=== PATIENT | male | born 1960 | race Asian ===

== ENCOUNTER 2019-01-28 00:28 | Outpatient (CLI) | payer BC, SELFPAY ==
--- NOTE | 2019-01-28 07:33 | MERGE_ITS ---
*[facility]* *[facility]* [address] [place] [address] Date of study: 01/28/2019 Transthoracic Echocardiography M-mode, complete 2D, complete spectral Doppler, and color Doppler *STUDY CONCLUSIONS* Summary: 1. Left ventricle: The cavity size was normal. Wall thickness was normal. Systolic function was normal. The estimated ejection fraction was 60-65%. Wall motion was normal; there were no regional wall motion abnormalities. 2. Right ventricle: The cavity size was normal. Wall thickness was normal. Systolic function was normal. 3. Pulmonary arteries: Pulmonary systolic pressure was within the normal range, in the range of 20mm Hg to 25mm Hg. *PATIENT PRESENTATION* Height: 172.7cm ((68in) ) S/D Pressure: 112 / 69 Weight: 65.8kg ((144.7lb) ) BSA: 1.78m^2 Test start time: 07:40 AM. Test stop time: 08:30 AM. CONSULTING Shirin Beltrán PERFORMING Unknown ORDERING Flip Garcia REFERRING Flip Garcia PERFORMING [facility] [employer]ITY ARCHITECT RT Harry (R)(MIGUELANGEL), MICHELE *PROCEDURE DATA* Procedure information: The patient was identified by two identifiers. This study was interpreted by [facility]. Pertinent images and digital data are archived for permanent storage and are available for subsequent review. Comparison was made to the study of 06/09/2009. Study status: Routine. Transthoracic echocardiography. M-mode, complete 2D, complete spectral Doppler, and color Doppler. A Transthoracic Echocardiogram was performed. Scanning was performed from the parasternal, apical, subcostal, and suprasternal notch acoustic windows. Images were obtained using an [id number] cardiac ultrasound machine. Image quality was adequate. Study completion: The patient tolerated the procedure well. There were no complications. History: PMH: Systemic sclerosis. M34.9 *CARDIAC ANATOMY* Left ventricle: The cavity size was normal. Wall thickness was normal. Systolic function was normal. The estimated ejection fraction was 60-65%. Wall motion was normal; there were no regional wall motion abnormalities. Diastolic parameters were normal. Aortic valve: Trileaflet; normal thickness leaflets. Mobility was not restricted. Doppler: Transvalvular velocity was within the normal range. There was no stenosis. There was no significant regurgitation. VTI ratio of LVOT to aortic valve: 0.78. Valve area (VTI): 2.5cm^2. Indexed valve area (VTI): 1.4cm^2/m^2. Peak velocity ratio of LVOT to aortic valve: 0.71. Valve area (Vmax): 2.3cm^2. Indexed valve area (Vmax): 1.3cm^2/m^2. Mean velocity ratio of LVOT to aortic valve: 0.8. Valve area (Vmean): 2.6cm^2. Indexed valve area (Vmean): 1.5cm^2/m^2. Mean gradient (S): 2.1mm Hg. Peak gradient (S): 3.9mm Hg. Aorta: Aortic root: The aortic root was normal in size. Ascending aorta: The ascending aorta was normal in size. Mitral valve: Structurally normal valve. Mobility was not restricted. Doppler: Transvalvular velocity was within the normal range. There was no evidence for stenosis. There was trivial regurgitation. Valve area by pressure half-time: 3.6cm^2. Indexed valve area by pressure half-time: 2cm^2/m^2. Left atrium: The atrium was normal in size. Right ventricle: The cavity size was normal. Wall thickness was normal. Systolic function was normal. Pulmonic valve: The pulmonary valve appears to be grossly normal. Doppler: Transvalvular velocity was within the normal range. There was no evidence for stenosis. There was mild regurgitation. Peak gradient (S): 4.7mm Hg. Tricuspid valve: Structurally normal valve. Doppler: Transvalvular velocity was within the normal range. There was no evidence for stenosis. There was trivial regurgitation. Pulmonary artery: Pulmonary systolic pressure was within the normal range, in the range of 20mm Hg to 25mm Hg. Right atrium: The atrium was normal in size. Pericardium: There was no pericardial effusion. Systemic veins: Inferior vena cava: Well visualized. The vessel was patent and normal in size. The respirophasic diameter changes were in the normal range (greater than or equal to 50%). Baseline ECG: Normal sinus rhythm. Measurements Left ventricle Value Reference LV ID, ED, PLAX 4.1 cm 3.5 - 6.0 LV ID, ES, PLAX 2.8 cm 2.1 - 4.0 LV PW thickness, ED, PLAX 1.0 cm LV end-diastolic volume, 1-p A2C 88 ml LV ejection fraction, 1-p A2C 64 % LV end-diastolic volume, 1-p A4C 64 ml LV ejection fraction, 1-p A4C 56 % LV e', lateral 0.109 m/sec LV E/e', lateral 6 LV e', medial 0.089 m/sec LV E/e', medial 8 LV e', average 0.099 m/sec LV E/e', average 7 Ventricular septum Value Reference IVS thickness, ED, PLAX 1.0 cm LVOT Value Reference LVOT ID, A-P 2.0 cm LVOT area 3.2 cm^2 LVOT peak velocity, S 0.7 m/sec LVOT mean velocity, S 0.53 m/sec LVOT VTI, S 16.4 cm LVOT peak gradient, S 2 mm Hg LVOT mean gradient, S 1.2 mm Hg Stroke volume (SV), LVOT DP 53 ml Stroke index (SV/bsa), LVOT DP 30 ml/m^2 Aortic valve Value Reference Aortic valve peak velocity, S 1 m/sec Aortic valve mean velocity, S 0.67 m/sec Aortic valve VTI, S 21.0 cm Aortic mean gradient, S 2.1 mm Hg Aortic peak gradient, S 3.9 mm Hg VTI ratio, LVOT/AV 0.78 Aortic valve area, VTI 2.5 cm^2 Velocity ratio, peak, LVOT/AV 0.71 Aortic valve area, peak velocity 2.3 cm^2 Velocity ratio, mean, LVOT/AV 0.8 Aortic valve area, mean velocity 2.6 cm^2 Aortic valve area/bsa, mean velocity 1.5 cm^2/m^2 Aorta Value Reference Aortic root ID, ED 3.2 cm Ascending aorta ID, A-P, S 3.2 cm RVOT Value Reference RVOT VTI, S 15.3 cm Left atrium Value Reference LA ID, A-P, ES 4.0 cm LA ID/bsa, A-P 2.2 cm/m^2 <=2.2 LA area, ES, A4C 19.6 cm^2 8.8 - 23.4 LA area, ES, A2C 16 cm^2 LA volume/bsa, ES, 1-p A4C 32 ml/m^2 LA volume, ES, 2-p 48 ml LA volume/bsa, ES, 2-p 27 ml/m^2 LA/aortic root ratio 1.24 Mitral valve Value Reference Mitral E-wave peak velocity 0.68 m/sec Mitral A-wave peak velocity 0.7 m/sec Mitral deceleration time 211 ms 150 - 230 Mitral pressure half-time 61 ms Mitral E/A ratio, peak 0.97 Mitral valve area, PHT, DP 3.6 cm^2 Tricuspid valve Value Reference Tricuspid regurg peak velocity 2.1 m/sec Tricuspid peak RV-RA gradient 17.3 mm Hg Right atrium Value Reference RA area, ES, A4C 15.5 cm^2 8.3 - 19.5 Pulmonic valve Value Reference Pulmonic peak gradient, S 4.7 mm Hg Pulmonic regurg velocity, ED 1.08 m/sec Legend: (L) and (H) danny values outside specified reference range. I have personally reviewed the images and have reviewed and edited the reported findings. Electronically signed by Castro Jones 01/28/2019 09:11
--- NOTE | 2019-01-28 08:45 | DI.CT_ITS ---
SYMPTOMS/DIAGNOSIS: ? INTERSTITIAL LUNG DISEASE, SYSTEM SCLEROSIS, M34.[address] SCAN OF THE CHEST: Routine noncontrast examination was performed. There is atherosclerosis of the thoracic aorta. No aneurysmal dilatation is seen. The heart size is within normal limits. No significant pericardial effusion is seen. Coronary artery calcifications are present. No significant thoracic adenopathy is present. No pleural effusion or pneumothorax is identified. Ground-glass opacities are seen in the dependent portion of the lung bases. The tracheobronchial tree is unremarkable. No significant interstitial disease is present. The bones are intact. IMPRESSION: 1. No significant interstitial disease. 2. Minimal ground-glass opacities seen in the dependent portion of the lung bases suspicious for atelectasis. Mild pneumonitis cannot be excluded.
--- NOTE | 2019-01-28 15:11 | DI.VRAD_ITS ---
EXAM: CT Chest Without Contrast EXAM DATE/TIME: 01/28/2019 9:03 AM CLINICAL HISTORY: 59 years old, male; Signs and symptoms; Other: ? Interstitial lung disease, systemic sclerosis TECHNIQUE: Imaging protocol: Axial computed tomography images of the chest without intravenous contrast. Coronal and sagittal reformatted images were created and reviewed. Radiation optimization: All CT scans at this facility use at least one of these dose optimization techniques: automated exposure control; mA and/or kV adjustment per patient size (includes targeted exams where dose is matched to clinical indication); or iterative reconstruction. COMPARISON: No relevant prior studies available. FINDINGS: Lungs: Minimal atelectasis/scarring of the lungs. No significant consolidation. Minimal ground glass attenuation in the lung bases. Pleural space: No pneumothorax. No pleural effusion. Heart: Unremarkable. No cardiomegaly. No pericardial effusion. Aorta: Unremarkable. No aortic aneurysm. Great vessels off aortic arch: Atherosclerosis of the aorta and major branch vessels is present, but mild. No visualized aneurysms. Lymph nodes: Unremarkable. No enlarged lymph nodes. Bones/joints: Unremarkable. No acute fracture. Soft tissues: Unremarkable. IMPRESSION: Minimal ground glass attenuation in the lung bases probably from a mild pneumonitis. No significant interstitial lung disease. Dictated and Authenticated by: Barber Pizarro MD. Ordering:JAMISON Castelan MD
== END 2019-01-28 00:48 ==
PROVIDERS: PCP Family Medicine; Visit Provider Internal Medicine
DX: M34.9 Systemic sclerosis, unspecified (principal); R91.8 Other nonspecific abnormal finding of lung field
CPT/HCPCS: 71250; 93306

== ENCOUNTER 2019-02-28 09:03 | Day surgery (SDC) | payer BC, SELFPAY ==
[2019-02-28 09:16] VITALS: BP 129/73; PULSE 67; RESP 16; TEMP 36.5; O2SAT 99
--- NOTE | 2019-02-28 09:46 | W.PM.DSUDISC ---
Discharge Plan Disposition Patient Disposition: HOME Condition: Good Discharge Details Attending Provider: Anastasiia Harris Primary Care Provider: Shirin Beltrán Home Meds and New Rx's Prescriptions: No Action diltiazem HCl 120 mg capsule,extended release 12 hr 120 mg PO DAILY RF: 0 ibuprofen 800 mg tablet 800 mg PO DAILY PRNRF: 0 naproxen [Naprosyn] 500 mg tablet 500 mg PO BID PRNRF: 0 diphenhydramine-acetaminophen [Tylenol PM Extra Strength] 25-500 mg tablet 1 tab PO QHS PRNRF: 0 bisacodyl [Dulcolax (bisacodyl)] 5 mg tablet,delayed release (DR/EC) 5 mg PO ONCE Qty: 4 RF: 0 polyethylene glycol 3350 17 gram/dose powder 238 g PO ONCE Qty: 238 RF: 0 epinephrine 0.3 MG/SYR auto-injector 0.3 mg IJ PRN RF: 0 zolpidem 5 MG tablet 5 mg PO .HS PRN RF: 0 multivitamin [Multiple Vitamins] 1 TAB tablet 1 tab PO DAILY Qty: 7 RF: 0 folic acid 1 MG tablet 1 mg PO QAM Qty: 7 RF: 0 B-complex with vitamin C 1 EACH tablet 1 tab PO DAILY Qty: 7 RF: 0 thiamine mononitrate (vit B1) [Vitamin B-1 (mononitrate)] 100 MG tablet 100 mg PO QAM Qty: 7 RF: 0 prednisone 10 mg Tablet 10 mg PO DAILY RF: 0 cyanocobalamin (vitamin B-12) 250 mcg Tablet 250 mcg PO DAILY RF: 0 amlodipine [Norvasc] 5 mg Tablet 7.5 mg PO DAILY RF: 0 magnesium citrate 125 mg Capsule 250 mg PO RF: 0 Discharge Orders Discharge Orders: Discharge Order (Routine); Ordered 02/28/19 Ordered By: Anastasiia Harris
[2019-02-28] MEDS: Lactated Ringers 1,000 ML 80 ML IV (09:51)
--- NOTE | 2019-02-28 10:22 | BOWEL_PTH ---
PATIENT: Abida Das LOC: [facility] U#:[id number] AGE/SX: 59/M ROOM: RE02/28/[address]: Anastasiia Harris MD : 1960 BED: DIS: 02/28/2019 SPEC #: [id number] RECD: 02/28/19 12:38 STATUS: NELSY REQ #: [id number] KEYUR: 02/28/19 10:[address]: Anastasiia Harris DEPT: Surgical Specimen RECD BY: Bernice Stearns ENTERED: 02/28/19 12:39 SP TYPE: Bowel OTHR DR: Shirin Beltrán Tissues: 1 - BIOPSY BOWEL 2 - BIOPSY BOWEL Procedures: GROSS AND MICRO LEVEL 4 Comments: [id number]
--- NOTE | 2019-02-28 10:42 | W.PM.DSUDISC ---
Discharge Plan Disposition Patient Disposition: HOME Condition: Good Discharge Details Attending Provider: Anastasiia Harris Primary Care Provider: Shirin Beltrán Home Meds and New Rx's Prescriptions: Continued diltiazem HCl 120 mg capsule,extended release 12 hr 120 mg PO DAILY RF: 0 ibuprofen 800 mg tablet 800 mg PO DAILY PRNRF: 0 naproxen [Naprosyn] 500 mg tablet 500 mg PO BID PRNRF: 0 diphenhydramine-acetaminophen [Tylenol PM Extra Strength] 25-500 mg tablet 1 tab PO QHS PRNRF: 0 epinephrine 0.3 MG/SYR auto-injector 0.3 mg IJ PRN RF: 0 zolpidem 5 MG tablet 5 mg PO .HS PRN RF: 0 multivitamin [Multiple Vitamins] 1 TAB tablet 1 tab PO DAILY Qty: 7 RF: 0 folic acid 1 MG tablet 1 mg PO QAM Qty: 7 RF: 0 B-complex with vitamin C 1 EACH tablet 1 tab PO DAILY Qty: 7 RF: 0 thiamine mononitrate (vit B1) [Vitamin B-1 (mononitrate)] 100 MG tablet 100 mg PO QAM Qty: 7 RF: 0 prednisone 10 mg Tablet 10 mg PO DAILY RF: 0 cyanocobalamin (vitamin B-12) 250 mcg Tablet 250 mcg PO DAILY RF: 0 amlodipine [Norvasc] 5 mg Tablet 7.5 mg PO DAILY RF: 0 magnesium citrate 125 mg Capsule 250 mg PO RF: 0 Discontinued bisacodyl [Dulcolax (bisacodyl)] 5 mg tablet,delayed release (DR/EC) 5 mg PO ONCE Qty: 4 RF: 0 polyethylene glycol 3350 17 gram/dose powder 238 g PO ONCE Qty: 238 RF: 0 Discharge Instructions Additional Instructions: Three small polyps were removed and appear benign. My office will send a letter with pathology results. It is anticipated you will need a follow up colonoscopy in 5 years. Stand Alone Forms: Colonoscopy Post Instructions, Christina Lin (DSMolly) Activity:: Activity as Tolerated Diet:: As Tolerated Discharge Orders Discharge Orders: Discharge Order (Routine); Ordered 02/28/19 Ordered By: Anastasiia Harris DS: Diagnosis Discharge Diagnosis (1) Colon polyps: Start date: 02/28/19 Start time: 10:43 Status: Acute
[2019-02-28 11:10] VITALS: BP 126/65; PULSE 57; RESP 16; TEMP 36.5; O2SAT 98
--- NOTE | 2019-02-28 11:22 | COLE_ITS ---
DATE OF PROCEDURE: February 28, 2019 PREOPERATIVE DIAGNOSIS: History of colon polyps. POSTOPERATIVE DIAGNOSIS: Colon polyps. PROCEDURE: Colonoscopy with cold forceps polypectomy. SURGEON: Anastasiia Harris M.D. ANESTHESIA: General. INDICATIONS: This is a 59-year-old man whose last colonoscopy in 2011 showed four small polyps, one of which was a tubular adenoma. He presents for routine follow-up. He has no family history of colo n cancer. PROCEDURE: He was placed in the left Mirza' position. Propofol was titrated to sedation. Digital re ctal examination revealed no abnormalities. The scope was advanced to the cecum without difficulty. His prep was excellent. The ileocecal valve and appendiceal orifice were clearly identified. The s cope was slowly withdrawn with no abnormalities seen within the ascending colon. In the distal trans verse colon there were two diminutive polyps that were removed and sent in the same specimen containe r. The descending and sigmoid colon were normal. In the rectum at about 20 cm there was a hyperplas tic-appearing polyp that was removed with the cold forceps. Retroflex view showed no other abnormali ties. He tolerated the procedure well and was stable to recovery. It is anticipated he will need a follow-up colonoscopy again in five years depending on the polyp pathology. cc: Shirin Beltrán M.D.
== END 2019-02-28 11:30 | disposition home or self-care (01) ==
PROVIDERS: PCP Family Medicine; Visit Provider Surgery
PROC: 0DJD8ZZ Inspection of Lower Intestinal Tract, Via Natural or Artificial Opening Endoscopic (ICD-10-PCS; CPT 45378; principal; 2019-02-28 10:30)
DX: Z12.11 Encounter for screening for malignant neoplasm of colon (principal); D12.3 Benign neoplasm of transverse colon; K62.1 Rectal polyp; I10 Essential (primary) hypertension
CPT/HCPCS: 45380; 88305

== ENCOUNTER 2019-06-19 01:40 | Outpatient (CLI) | payer BC, SELFPAY ==
--- NOTE | 2019-06-19 09:14 | DI.MRI_ITS ---
EXAM: MR UPPER JOINT RT WO CLINICAL HISTORY: DEGENERATIVE JOINT CHANGE IN AC JOINT AND GLENOHUMERAL JOINT, ? ROTATOR,DECREASED RANGE OF MOTION TECHNIQUE: Multiplanar multisequence MRI was performed. COMPARISON: RIGHT SHOULDER COMPLETE from 09/21/2016 FINDINGS: There is spurring at the AC joint. The acromion is laterally downsloping and shows a spur at the ti p. There is a full-thickness tear of the supraspinatus tendon with retraction to the level of the ti p of the acromion. There is no muscle atrophy. There is minimal thickening in the infraspinatus ten don but no evidence of a focal tear. The subscapularis and teres minor tendons appear intact. The l josephine head of the biceps tendon is not seen in the bicipital groove. There is fluid in the subacromial subdeltoid bursa and a small amount of joint fluid and a small amount of fluid in the subcoracoid bu rsa. The marrow signal appears normal. IMPRESSION: Full-thickness tear with retraction of the supraspinatus tendon. The long head of the biceps tendon is not seen and is presumed torn as well.
== END 2019-06-19 02:00 ==
PROVIDERS: PCP Family Medicine; Visit Provider Internal Medicine
DX: M75.101 Unspecified rotator cuff tear or rupture of right shoulder, not specified as traumatic (principal); M25.511 Pain in right shoulder; S46.291A Other injury of muscle, fascia and tendon of other parts of biceps, right arm, initial encounter
CPT/HCPCS: 73221

== ENCOUNTER 2019-06-20 00:54 | Outpatient (CLI) | payer BC, SELFPAY ==
[2019-06-20 11:01] LABS: HCT 45.9 % (40.0-50.0); Mean Corp. HGB Concentration 32.7 g/dL (32.0-36.0); Mean Corpuscular Volume 88.6 fL (80-95); Mean Platelet Volume 10.2 fL (8.0-11.0); Platelet Count 281 x1000/uL (130-400); RBC 5.18 m/cumm (4.50-6.00); RBC Distribution Width 13.4 % (11.8-14.1); White Blood Cell Count 7.26 k/cumm (4.4-10.8)
[2019-06-20 11:02] LABS: Anion Gap 5.3 mmol/L (3-11); BUN 26 mg/dL (7-18); CO2 32.7 mmol/L (21.0-32.0); CREATININE 1.16 mg/dL (0.70-1.30); Calculated LDL 180 mg/dL; Chloride 102 mmol/L (98-107); Cholesterol 263 mg/dL (50-200); Glucose 96 mg/dL (70-100); HDL Cholesterol 69 mg/dL (40-60); Potassium 4.8 mmol/L (3.5-5.1); Sodium 140 mmol/L (136-145); Triglyceride 74 mg/dL (30-150)
[2019-06-20 11:19] LABS: Hemoglobin A1C 5.9 % (4.5-6.2)
== END 2019-06-20 01:14 ==
PROVIDERS: PCP Family Medicine; Visit Provider Family Medicine
DX: Z00.00 Encounter for general adult medical examination without abnormal findings (principal); Z13.1 Encounter for screening for diabetes mellitus; Z13.228 Encounter for screening for other metabolic disorders; Z13.0 Encounter for screening for diseases of the blood and blood-forming organs and certain disorders involving the immune mechanism; Z13.220 Encounter for screening for lipoid disorders
CPT/HCPCS: 36415; 80048; 80061; 85027; 83036

== ENCOUNTER 2020-06-30 14:21 | Outpatient (REF) | payer BC, SELFPAY ==
[2020-07-04 15:09] LABS: SARS-CoV-2 RNA Undetected (Undetected); SARS-CoV-2 Specimen Source Nasal
== END 2020-06-30 14:41 ==
LOC: NCHCN 14:21
PROVIDERS: PCP Family Medicine; Visit Provider Physician Assistant Medical
DX: R05 Cough (principal)
CPT/HCPCS: U0003

== ENCOUNTER 2020-10-14 03:29 | Outpatient (CLI) | payer BC, SELFPAY ==
[2020-10-14 08:39] LABS: Abs Immature Grans 0.01 10^3/uL (0.0-0.06); Absolute Basophil Count 0.03 10^3/uL (0.0-0.2); Absolute Lymphocyte Count 1.71 10^3/uL (1.2-3.4); Absolute Monocyte Count 0.42 10^3/uL (0.1-0.8); Absolute Neutrophil Count 2.96 10^3/uL (1.2-6.7); Basophils % 0.6; Eosinophils % 1.9; HCT 43.8 % (40.0-50.0); HGB 14.3 g/dL (13.5-17.5); Immature Grans % 0.2; Lymphocytes % 32.7; MCH 29.2 pg (27.0-33.0); MCHC 32.6 % (32.0-36.0); MCV 89.4 fL (80-95); MPV 9.9 fL (8.0-11.0); Neutrophils % 56.6; Nucleated RBC 0 %; Platelet Count 255 10^3/uL (130-400); RDW 14.1 % (11.8-14.1); RDW-SD 45.6 fL; WBC 5.23 10^3/uL (4.4-10.8)
[2020-10-14 09:15] LABS: ALT 74 U/L (16-63); AST 36 U/L (15-37); Albumin 4.4 g/dL (3.4-5.0); Alkaline Phosphatase 66 U/L (46-116); Anion Gap 4.7 mmol/L (3-11); BUN 24 mg/dL (7-18); Bilirubin, Total 0.6 mg/dL (0.2-1.0); CO2 30.3 mmol/L (21.0-32.0); Calcium 9.5 mg/dL (8.5-10.1); Chloride 104 mmol/L (98-107); Glucose 87 mg/dL (74-106); Potassium 4.5 mmol/L (3.5-5.1); Sodium 139 mmol/L (136-145); Total Protein 7.7 g/dL (6.4-8.2)
== END 2020-10-14 03:30 | disposition home or self-care (01) ==
LOC: LBO 03:29
PROVIDERS: PCP Family Medicine; Visit Provider Internal Medicine
DX: M34.9 Systemic sclerosis, unspecified (principal)
CPT/HCPCS: 36415; 80053; 85025

== ENCOUNTER 2021-01-05 17:05 | Outpatient (REF) | payer BC, SELFPAY ==
[2021-01-05 18:53] LABS: Hemoglobin A1C 5.5 % (<5.7)
[2021-01-05 19:06] LABS: ALT 38 U/L (16-63); AST 30 U/L (15-37); Albumin 4.2 g/dL (3.4-5.0); Alkaline Phosphatase 72 U/L (46-116); Bilirubin, Direct 0.1 mg/dL (0.0-0.2); Bilirubin, Total 0.4 mg/dL (0.2-1.0); Total Protein 7.8 g/dL (6.4-8.2)
== END 2021-01-05 17:06 | disposition home or self-care (01) ==
LOC: NCHCN 17:05
PROVIDERS: PCP Family Medicine; Visit Provider Family Medicine
DX: I73.00 Raynaud's syndrome without gangrene (principal); M34.89 Other systemic sclerosis; Z13.1 Encounter for screening for diabetes mellitus
CPT/HCPCS: 80076; 83036

== ENCOUNTER 2021-10-06 07:42 | Outpatient (REF) | payer BC, SELFPAY ==
[2021-10-06 15:58] LABS: HCT 44.4 % (40.0-50.0); HGB 14.2 g/dL (13.5-17.5); MCH 29.7 pg (27.0-33.0); MCV 92.9 fL (80-95); MPV 10.5 fL (8.0-11.0); Platelet Count 262 10^3/uL (130-400); RBC 4.78 10^6/uL (4.36-5.78); RDW 14.6 % (11.8-14.1); RDW-SD 50.8 fL; WBC 5.17 10^3/uL (4.4-10.8)
[2021-10-06 16:07] LABS: ALT 50 U/L (16-63); AST 34 U/L (15-37); Alkaline Phosphatase 71 U/L (46-116); Anion Gap 9.5 mmol/L (3-11); BUN 21 mg/dL (7-18); Bilirubin, Total 0.2 mg/dL (0.2-1.0); CO2 24.5 mmol/L (21.0-32.0); Calcium 9.1 mg/dL (8.5-10.1); Chloride 107 mmol/L (98-107); Glucose 122 mg/dL (74-106); Potassium 4.7 mmol/L (3.5-5.1); Sodium 141 mmol/L (136-145); Total Protein 7.8 g/dL (6.4-8.2)
[2021-10-07 10:20] LABS: HIV-1/2 Ag & Ab Screen Negative (Negative)
[2021-10-07 10:31] LABS: Hepatitis C Ab w Rflx HCV PCR Negative (Negative)
== END 2021-10-06 07:43 | disposition home or self-care (01) ==
LOC: NCHCN 07:42
PROVIDERS: PCP Family Medicine; Visit Provider Family Medicine
DX: Z00.00 Encounter for general adult medical examination without abnormal findings (principal); Z51.81 Encounter for therapeutic drug level monitoring; Z11.4 Encounter for screening for human immunodeficiency virus [HIV]; Z11.59 Encounter for screening for other viral diseases
CPT/HCPCS: 80053; 85027; 86803; 87389

== ENCOUNTER 2022-04-25 15:18 | Outpatient (REF) | payer BC, SELFPAY ==
[2022-04-25 15:06] LABS: HCT 44.5 % (40.0-50.0); HGB 14.7 g/dL (13.5-17.5); MCH 30.5 pg (27.0-33.0); MCV 92 fL (80-95); MPV 11.1 fL (8.0-11.0); Platelet Count 285 10^3/uL (130-400); RBC 4.82 10^6/uL (4.36-5.78); RDW-SD 47.5 fL; WBC 6.59 10^3/uL (4.4-10.8)
[2022-04-25 15:26] LABS: ALT 44 U/L (16-63); AST 29 U/L (15-37); Albumin 3.9 g/dL (3.4-5.0); Alkaline Phosphatase 65 U/L (46-116); Anion Gap 10.5 mmol/L (3-11); BUN 15 mg/dL (7-18); Bilirubin, Total 0.3 mg/dL (0.2-1.0); CO2 25.5 mmol/L (21.0-32.0); CREATININE 1.1 mg/dL (0.70-1.30); Calcium 8.7 mg/dL (8.5-10.1); Chloride 105 mmol/L (98-107); Glucose 128 mg/dL (74-106); Sodium 141 mmol/L (136-145); Total Protein 8.1 g/dL (6.4-8.2)
== END 2022-04-25 15:19 | disposition home or self-care (01) ==
LOC: NCHCN 15:18
PROVIDERS: PCP Family Medicine; Visit Provider Family Medicine
DX: Z51.81 Encounter for therapeutic drug level monitoring (principal)
CPT/HCPCS: 80053; 85027

== ENCOUNTER 2022-07-10 11:42 | Outpatient (REF) | payer BC, SELFPAY ==
[2022-07-10 18:44] LABS: HCT 45.7 % (40.0-50.0); HGB 14.7 g/dL (13.5-17.5); MCH 29.8 pg (27.0-33.0); MCHC 32.2 % (32.0-36.0); MCV 93 fL (80-95); MPV 10.8 fL (8.0-11.0); Platelet Count 271 10^3/uL (130-400); RBC 4.94 10^6/uL (4.36-5.78); RDW 12.6 % (11.8-14.1); RDW-SD 42.5 fL; WBC 5.53 10^3/uL (4.4-10.8)
[2022-07-10 19:02] LABS: ALT 26 U/L (16-63); AST 20 U/L (15-37); Albumin 4.1 g/dL (3.4-5.0); Alkaline Phosphatase 63 U/L (46-116); Anion Gap 5.6 mmol/L (3-11); BUN 23 mg/dL (7-18); Bilirubin, Total 0.3 mg/dL (0.2-1.0); CO2 31.4 mmol/L (21.0-32.0); CREATININE 1.3 mg/dL (0.70-1.30); Calcium 9.6 mg/dL (8.5-10.1); Chloride 102 mmol/L (98-107); Estimated GFR 62.11 (mL/min/1.73m2); Glucose 117 mg/dL (74-106); Potassium 4.5 mmol/L (3.5-5.1); Sodium 139 mmol/L (136-145); Total Protein 8.2 g/dL (6.4-8.2)
== END 2022-07-10 11:43 | disposition home or self-care (01) ==
LOC: NCHCN 11:42
PROVIDERS: PCP Family Medicine; Visit Provider Family Medicine
DX: Z51.81 Encounter for therapeutic drug level monitoring (principal)
CPT/HCPCS: 80053; 85027

== ENCOUNTER 2022-07-28 06:27 | Day surgery (SDC) | payer BC, SELFPAY ==
[2022-07-28] MEDS: Tropicam./Phenyleph. (1/2.5%) 5 ML BTL OS ×3 (06:54→07:13)
[2022-07-28 07:04] VITALS: BP 114/67; PULSE 64; RESP 16; TEMP 36.6; O2SAT 99
--- NOTE | 2022-07-28 07:15 | W.ANESPRE ---
General Info Date of Service Date Performed: 07/28/22 Height: 5 ft 7 in Weight: 67.132 kg Body Mass Index (BMI): 23.1 Surgical Procedure: Operation Date: 07/28/22 07:40 Proposed Procedure Side Surgeon p Cataract Extraction with IOL Implant Left Ubaldo Huizar MD Meds Allergies and Home Medications Allergies Allergy/AdvReac Type Severity Reaction Status Date / Time venom-honey bee Allergy Severe Anaphylaxsi Unverified 07/28/22 06:45 [bee venom (honey bee)] s Home Medication Medication Instructions Recorded epinephrine 0.3 mg/0.3 mL 0.3 mg IJ PRN 03/10/14 injection, auto-injector zolpidem 5 mg tablet 5 mg PO .HS PRN 03/10/14 methotrexate sodium 2.5 mg tablet 7.5 mg PO QWEEK 08/11/21 trazodone 50 mg tablet 50 mg PO QHS PRN 08/11/21 niacin 500 mg tablet 500 mg PO DAILY 09/13/21 folic acid 1 mg tablet 1 mg PO DAILY 07/28/22 prazosin 1 mg capsule 1 mg PO QHS 07/28/22 Current Visit Medications: Current Medications Generic Name Dose Route Start Last Admin Trade Name Freq PRN Reason Stop Dose Admin Acetaminophen 1,000 mg 07/28/22 06:00 Acetaminophen 500 Mg Tab PO Q4H PRN PRN Miscellaneous Medication 0 ml 07/28/22 06:00 Prednisolone 1%, Moxifloxacin 0.5%, Nepafenac 0.1% 5ml Btl OS DIRECTED [facility] Miscellaneous Medication 0 ml 07/28/22 06:00 07/28/22 07:03 Tropicam./Phenyleph. (1/2.5%) 5 Ml Btl OS 1 drp DIRECTED EULOGIO Administration Tetracaine HCl 0 ml 07/28/22 06:00 Tetracaine 0.5% 4 Ml Btl OS DIRECTED EULOGIO PFSH Active Problems Active Problems: Problem Status Onset Code Sensorineural hearing loss (SNHL) of both ears H90.3 Tinnitus, bilateral H93.13 Colon polyps K63.5 Alcohol intoxication F10.129 Alcohol abuse F10.10 Depression F32.9 Hypertension I10 Hyperlipidemia E78.5 Raynaud disease I73.00 Medical History Medical History Insomnia Nightmares Polyp of colon 02/28/19 Dr Anastasiia Harris, [facility], tubular adenoma, repeat five years 04/24/12 w/ Dr. Uma Fried, 4 polyps, tubular adenoma, hyperplastic, repeat 3 years Right shoulder pain Systemic sclerosis Tinnitus Surgical History Surgical History H/O rotator cuff surgery History of tonsillectomy and adenoidectomy History of tympanoplasty of left ear Tobacco Smoking/Tobacco Use Status: Never Alcohol Alcohol Intake: former Substance Use Substance use: Never Substance use type: does not use Vital Signs and Lab Results Vital Signs Most Recent Vital Signs in EMR: Most Recent Vital Signs Temp Pulse Resp BP Pulse Ox 36.6 C 64 16 114/67 99 07/28/22 07:04 07/28/22 07:04 07/28/22 07:04 07/28/22 07:04 07/28/22 07:04 Lab Results Blood Type / Crossmatch: No Data to Display Complete Blood Count: White Blood Count 5.53 10^3/uL (4.4-10.8) 07/10/22 11:07 Red Blood Count 4.94 10^6/uL (4.36-5.78) 07/10/22 11:07 Hemoglobin 14.7 g/dL (13.5-17.5) 07/10/22 11:07 Hematocrit 45.7 % (40.0-50.0) 07/10/22 11:07 Platelet Count 271 10^3/uL (130-400) 07/10/22 11:07 Complete Metabolic Panel: Sodium 139 mmol/L (136-145) 07/10/22 11:07 Potassium 4.5 mmol/L (3.5-5.1) 07/10/22 11:07 Chloride 102 mmol/L (98-107) 07/10/22 11:07 Carbon Dioxide 31.4 mmol/L (21.0-32.0) 07/10/22 11:07 BUN 23 mg/dL (7-18) H 07/10/22 11:07 Creatinine 1.3 mg/dL (0.70-1.30) 07/10/22 11:07 Est GFR (CKD-EPI 2020) 62.11 (mL/min/1.73m2) 07/10/22 11:07 Calcium 9.6 mg/dL (8.5-10.1) 07/10/22 11:07 Albumin 4.1 g/dL (3.4-5.0) 07/10/22 11:07 Glucose 117 mg/dL (74-106) H 07/10/22 11:07 Liver Function Panel: Alanine Aminotransferase (ALT/SGPT) 26 U/L (16-63) 07/10/22 11:07 Aspartate Amino Transf (AST/SGOT) 20 U/L (15-37) 07/10/22 11:07 Coagulation Panel: No Data to Display Cardiac Panel: No Data to Display Arterial Blood Gas: No Data to Display Venous Blood Gas: No Data to Display Pancreas Panel: No Data to Display Thyroid Panel: No Data to Display Infectious Disease: No Data to Display Blood Cultures: No Data to Display Toxicology Panel: No Data to Display Anesthesia Assessment and Plan Anesthesia History Personal History: No History of Anesthesia Complications Family History: No Family History of Anesthesia Complications Exercise Tolerance Exercise Tolerance: Metabolic Equivalents>4 Cardiac & Pulmonary Exam Cardiac Exam: Normal S1/S2 Heart Sounds Pulmonary Exam: Clear Bilateral Breath Sounds Implantable Cardiac Device Does patient have a Pacemaker or an ICD?: No Airway Exam Known Difficult Airway: No Mallampati Class: 1 Mouth Opening: Normal (> 3cm) Thyromental Distance: Greater than 3 cm Neck Range of Motion: Full ROM Neck Circumference: Normal Teeth Condition: Normal Dentition and Removable Dentures/Plates Upper ASA Classification ASA Score: ASA 2 Emergency Case?: No NPO Status NPO Status: NPO Clears >2 hours, Solids >8 hours Anesthesia Plan Resuscitation Status: Full Code Anesthesia Technique: MAC Anesthesia Airway Planned: Natural Airway Monitors Used: Standard Monitors
[2022-07-28 07:20] VITALS: BMI 23.1
[2022-07-28] MEDS: Tetracaine 0.5% 4 ML BTL OS (07:42)
[2022-07-28] MEDS: Balanced Salt Soln.-PLUS 500 ML BAG (07:44)
[2022-07-28] MEDS: Povidone-Iodine Ophth 30 ML BTL (07:44)
[2022-07-28] MEDS: Duovisc Viscoelastic System EACH 1 EACH (07:45)
[2022-07-28] MEDS: Lidocaine 2% Jelly 6 ML SYR (07:45)
[2022-07-28] MEDS: Trypan Blue 0.06% 0.5 ML SYR (07:45)
[2022-07-28 08:06] VITALS: BP 123/86; PULSE 59; RESP 16; TEMP 36.3; O2SAT 99
--- NOTE | 2022-07-28 08:07 | W.ANESPOSTOP ---
Postoperative Evaluation Date, Time and Location Date Performed: 07/28/22 Time Performed: 08:08 Patient Location: Day Surgery Unit Vital Signs Most Recent Imported Vital Signs: Most Recent Vital Signs Temp Pulse Resp BP Pulse Ox 36.3 C L 59 L 16 123/86 99 07/28/22 08:06 07/28/22 08:06 07/28/22 08:06 07/28/22 08:06 07/28/22 08:06 Most Recent Manually Entered Vital Signs: Adult Blood Pressure: 123/86 Heart Rate: 59 Respirations: 12 Oxygen Saturation (%): 98 Temperature (C): 36.3 C Pain Score (0-10 Scale): 0 Assessment Mental Status: Awake (Alert & Oriented to Patient Baseline) Airway and Respiratory Function: Patent airway with normal (patient baseline) respiratory exam Cardiovascular Function: Hemodynamically Stable Hydration Status: Adequately Hydrated Nausea & Vomiting: No Nausea or Vomiting Pain: Pt. Denies Any Pain Peripheral Nerve Block: Patient did not receive a nerve block
--- NOTE | 2022-07-28 08:07 | W.PM.DSUDISC ---
Date of service: 07/28/22 Time of Service: 08:07 Discharge Plan Disposition Patient Disposition: HOME Condition: Good Discharge Details Attending Provider: Ubaldo Huizar Primary Care Provider: Shirin Beltrán Meds and New Rx's Prescriptions: No Action trazodone 50 mg tablet 50 mg PO QHS PRN methotrexate sodium 2.5 mg tablet 7.5 mg PO QWEEK niacin 500 mg tablet 500 mg PO DAILY epinephrine 0.3 MG/SYR auto-injector 0.3 mg IJ PRN zolpidem 5 MG tablet 5 mg PO .HS PRN folic acid 1 mg Tablet 1 mg PO DAILY prazosin 1 mg Capsule 1 mg PO QHS Discharge Instructions Stand Alone Forms: Post-op Topical Cataract, Christina Lin (DSU) DS: Diagnosis Discharge Diagnosis (1) Cortical cataract of left eye: Status: Resolved
[2022-07-28 08:08] VITALS: BP 123/86; PULSE 59; RESP 12; TEMPC 36.3; O2SAT 98
--- NOTE | 2022-07-28 08:08 | ROE_ITS ---
Date of service: 07/28/22 Time of Service: 08:08 Operative Note Operative Note DATE OF PROCEDURE: 07/28/22 PRE-OP DIAGNOSIS: Dense cortical cataract, left eye Poor red reflex, left eye secondary to cataract POST-OP DIAGNOSIS: same PROCEDURE: Cataract extraction using phacoemulsification with intraocular lens implant, left eye, using capsular staining with Vision Blue SURGEON: Ubaldo Huizar ANESTHESIA TYPE: Local By Surgeon and MAC Refer to Anesthesia Record COMPLICATIONS: None Patient was transported to: same day Patient's condition: stable Implants: Hector and Hector / [employer] Tecnis [id number] Indications: Progressive decreased vision due to cataract, left eye, with poor red reflex Procedure Description: CATARACT SURGERY OPERATIVE REPORT PREOPERATIVE DIAGNOSIS: 1. Dense cortical cataract, left eye 2. Poor red reflex secondary to #1 POSTOPERATIVE DIAGNOSIS: Same OPERATION: 1. Cataract extraction using phacoemulsification with posterior chamber intraocular lens implant, left eye. 2. Capsular staining with Vision Blue IOL: IOL Corrugated Fastener Driver/Model: Hector & Hector / GILDA Tecnis [id number] IOL Power: + 18.0 diopters IOL Serial Number: [id number] Optic Diameter: 6.0 mm Haptic/Overall Diameter: 13.0 mm PHACO INFO: Nash Centurion Vision System with OZil and Active Fluidics Cumulative Dispersed Energy (CDE): 4.58 seconds SURGEON: Ubaldo Huizar MD, GARY ANESTHESIA: Monitored A [facility] (MAC), with local sub-tenon's anesthetic infiltration COMPLICATIONS: None SPECIMENS: None INDICATIONS FOR PROCEDURE: The patient is a 62-year-old gentleman with history of diminished visual acuity in his left eye. He is noted to have a dense cortical cataract with poor red reflex of the left eye. The option of cataract surgery was offered to the patient and he wished to proceed. PROCEDURE: The correct surgical eye was identified and marked as the left eye and the pupil was dilated in the preoperative area using mydriatics and cycloplegics. The dilated pupil size was 6.0 mm. Oral sedation was administered in the form of an Imprimis MKO Melt (midazolam 3mg/ketamine 25mg/ondansetron 2mg). The patient elected to proceed without oral sedation. The patient was brought to the operating room where cardiopulmonary monitoring was instituted and surgical time-out was performed, confirming the correct operative eye and IOL power. Topical anesthesia was administered and ophthalmic povidone-iodine 5% was instilled into the conjunctival fornices. Lidocaine gel was applied to the cornea and the dusty-ocular area was prepped with Betadine 10% solution and draped in the usual sterile fashion for intraocular surgery, including an aperture drape. A Tegaderm transparent film dressing was cut in half and used to cover the lashes and lid margins. Care was taken to sequester the lashes and lid margins under the Tegaderm dressing. A lid speculum was placed between the lids of the operative eye and the Nash LuxOR Revalia operating microscope was maneuvered into position. Andrew scissors were then used to make a conjunctival buttonhole approximately 6mm posterior to the limbus in the inferonasal quadrant. Blunt dissection was carried out to expose bare sclera, and a blunt-tipped sub-tenon?s anesthesia cannula was introduced and passed posteriorly along the globe where non- preserved plain lidocaine was injected into posterior sub-Tenon?s space. A sideport knife was used to make a paracentesis port superiorly/superiortemporally. Intraocular phenylephrine/lidocaine was injected int the anterior chamber.. Air was then injected into the anterior chamber, followed by Vision Blue, which was painted over the anterior capsule and then irrigated out using BSS. The anterior chamber was filled with viscoelastic. A keratome knife was used to create a 2-plane near clear corneal tunnel extending approximately 2 mm into clear cornea temporally. A flap was raised on the anterior capsule and capsulorhexis forceps were used to complete a continuous curvilinear capsulorhexis of 5.0 mm. Balanced salt solution was then used to perform cortical cleaving hydrodissection and nuclear hydrodelineation until the lens could be freely rotated within the capsular bag. The lens nucleus was then disassembled and removed within the capsular bag and iris plane using phacoemulsification. Residual cortical material was removed using the 45-degree angled silicone I/A tip with 0.3mm port. The posterior capsule was carefully polished to remove as much residual lens epithelial cells as safely possible. The capsular bag was then inflated and the anterior chamber deepened with viscoelastic. The lens implant described above was inserted into the capsular bag using the GILDA [place] Injector. A Kuglen hook was used to dial the IOL into position. Residual viscoelastic was then removed first from posterior to the IOL, then from the anterior chamber using the I/A handpiece. The lens implant was noted to center nicely within the capsular bag. The incisions were stromally hydrated, and the anterior chamber was reformed using BSS. Then 0.5cc of moxifloxacin 1.0mg/ml were injected into the capsular bag and anterior chamber. The incisions were checked with a Weck spear and found to be secure. Several drops of ophthalmic povidone-iodine 5% were then applied to the eye followed by two drops of Imprimis combination prednisolone/moxifloxacin/nepafenac solution. The drapes were removed and a clear plastic protective eye shield was placed over the eye. The patient was then returned to Same Day Surgery in stable condition.
[2022-07-28 08:30] VITALS: BP 133/65; PULSE 62; RESP 16; TEMP 36.1; O2SAT 100
== END 2022-07-28 08:40 | disposition home or self-care (01) ==
LOC: SUR 06:27
PROVIDERS: PCP Family Medicine; Visit Provider Ophthalmology
PROC: (CPT 66982; principal; 2022-07-28 07:30)
DX: H25.012 Cortical age-related cataract, left eye (principal); H26.8 Other specified cataract
CPT/HCPCS: 66982; V2632

== ENCOUNTER 2022-08-04 08:03 | Day surgery (SDC) | payer BC, SELFPAY ==
[2022-08-04] MEDS: Tropicam./Phenyleph. (1/2.5%) 5 ML BTL OD ×3 (08:39→08:53)
[2022-08-04 08:40] VITALS: BP 118/68; PULSE 54; RESP 16; TEMP 36.2; O2SAT 96
--- NOTE | 2022-08-04 09:05 | ANES.PREOP_ITS ---
General Info Date of Service Date Performed: 08/04/22 Height: 5 ft 7 in Weight: 66 kg Body Mass Index (BMI): 22.8 Surgical Procedure: Operation Date: 08/04/22 10:40 Proposed Procedure Side Surgeon p Cataract Extraction with IOL Implant Right Ubaldo Huizar MD Meds Allergies and Home Medications Allergies Allergy/AdvReac Type Severity Reaction Status Date / Time venom-honey bee Allergy Severe Anaphylaxsi Unverified 08/04/22 08:35 [bee venom (honey bee)] s Home Medication Medication Instructions Recorded epinephrine 0.3 mg/0.3 mL 0.3 mg IJ PRN 03/10/14 injection, auto-injector zolpidem 5 mg tablet 5 mg PO .HS PRN 03/10/14 methotrexate sodium 2.5 mg tablet 7.5 mg PO QWEEK 08/11/21 trazodone 50 mg tablet 50 mg PO QHS PRN 08/11/21 niacin 500 mg tablet 500 mg PO DAILY 09/13/21 folic acid 1 mg tablet 1 mg PO DAILY 07/28/22 prazosin 1 mg capsule 1 mg PO QHS 07/28/22 Current Visit Medications: Current Medications Generic Name Dose Route Start Last Admin Trade Name Freq PRN Reason Stop Dose Admin Acetaminophen 1,000 mg 08/04/22 06:00 Acetaminophen 500 Mg Tab PO Q4H PRN PRN Miscellaneous Medication 0 ml 08/04/22 06:00 Prednisolone 1%, Moxifloxacin 0.5%, Nepafenac 0.1% 5ml Btl OD DIRECTED [facility] Miscellaneous Medication 0 ml 08/04/22 06:00 08/04/22 08:53 Tropicam./Phenyleph. (1/2.5%) 5 Ml Btl OD 1 drp DIRECTED EULOGIO Administration Tetracaine HCl 0 ml 08/04/22 06:00 Tetracaine 0.5% 4 Ml Btl OD DIRECTED [facility] PFSH Active Problems Active Problems: Problem Status Onset Code Cortical cataract of left eye H26.9 Sensorineural hearing loss (SNHL) of both ears H90.3 Tinnitus, bilateral H93.13 Colon polyps K63.5 Alcohol intoxication F10.129 Alcohol abuse F10.10 Depression F32.9 Hypertension I10 Hyperlipidemia E78.5 Raynaud disease I73.00 Medical History Medical History (Updated 08/04/22 @ 09:27 by Ubaldo Huizar MD) Insomnia Nightmares Polyp of colon 02/28/19 Dr Anastasiia Harris, [facility], tubular adenoma, repeat five years 04/24/12 w/ Dr. Uma Fried, 4 polyps, tubular adenoma, hyperplastic, repeat 3 years Right shoulder pain Systemic sclerosis Tinnitus Surgical History Surgical History H/O rotator cuff surgery History of tonsillectomy and adenoidectomy History of tympanoplasty of left ear Tobacco Smoking/Tobacco Use Status: Never Alcohol Alcohol Intake: former Substance Use Substance use: Never Substance use type: does not use Vital Signs and Lab Results Vital Signs Most Recent Vital Signs in EMR: Most Recent Vital Signs Temp Pulse Resp BP Pulse Ox 36.2 C L 54 L 16 118/68 96 08/04/22 08:40 08/04/22 08:40 08/04/22 08:40 08/04/22 08:40 08/04/22 08:40 Lab Results Blood Type / Crossmatch: No Data to Display Complete Blood Count: White Blood Count 5.53 10^3/uL (4.4-10.8) 07/10/22 11:07 Red Blood Count 4.94 10^6/uL (4.36-5.78) 07/10/22 11:07 Hemoglobin 14.7 g/dL (13.5-17.5) 07/10/22 11:07 Hematocrit 45.7 % (40.0-50.0) 07/10/22 11:07 Platelet Count 271 10^3/uL (130-400) 07/10/22 11:07 Complete Metabolic Panel: Sodium 139 mmol/L (136-145) 07/10/22 11:07 Potassium 4.5 mmol/L (3.5-5.1) 07/10/22 11:07 Chloride 102 mmol/L (98-107) 07/10/22 11:07 Carbon Dioxide 31.4 mmol/L (21.0-32.0) 07/10/22 11:07 BUN 23 mg/dL (7-18) H 07/10/22 11:07 Creatinine 1.3 mg/dL (0.70-1.30) 07/10/22 11:07 Est GFR (CKD-EPI 2020) 62.11 (mL/min/1.73m2) 07/10/22 11:07 Calcium 9.6 mg/dL (8.5-10.1) 07/10/22 11:07 Albumin 4.1 g/dL (3.4-5.0) 07/10/22 11:07 Glucose 117 mg/dL (74-106) H 07/10/22 11:07 Liver Function Panel: Alanine Aminotransferase (ALT/SGPT) 26 U/L (16-63) 07/10/22 11: 07 Aspartate Amino Transf (AST/SGOT) 20 U/L (15-37) 07/10/22 11:07 Coagulation Panel: No Data to Display Cardiac Panel: No Data to Display Arterial Blood Gas: No Data to Display Venous Blood Gas: No Data to Display Pancreas Panel: No Data to Display Thyroid Panel: No Data to Display Infectious Disease: No Data to Display Blood Cultures: No Data to Display Toxicology Panel: No Data to Display Imaging and Studies Imaging and Studies Study information below may be from another EMR and interpreted by another provider. Please see original notes in EMR for more complete details. Echocardiogram Summary: Date of study: 01/28/2019 Transthoracic Echocardiography M-mode, complete 2D, complete spectral Doppler, and color Doppler *STUDY CONCLUSIONS* Summary: 1. Left ventricle: The cavity size was normal. Wall thickness was normal. Systolic function was normal. The estimated ejection fraction was 60-65%. Wall motion was normal; there were no regional wall motion abnormalities. 2. Right ventricle: The cavity size was normal. Wall thickness was normal. Systolic function was normal. 3. Pulmonary arteries: Pulmonary systolic pressure was within the normal range, in the range of 20mm Hg to 25mm Hg. Anesthesia Assessment and Plan Anesthesia History Personal History: No History of Anesthesia Complications Family History: No Family History of Anesthesia Complications Exercise Tolerance Exercise Tolerance: Metabolic Equivalents>4 Pertinent Negatives Pertinent Negatives: No Symptoms of GERD Cardiac & Pulmonary Exam Cardiac Exam: Normal S1/S2 Heart Sounds Pulmonary Exam: Clear Bilateral Breath Sounds Implantable Cardiac Device Does patient have a Pacemaker or an ICD?: No Airway Exam Known Difficult Airway: No Mallampati Class: 1 Mouth Opening: Normal (> 3cm) Thyromental Distance: Greater than 3 cm Neck Range of Motion: Full ROM Neck Circumference: Normal Teeth Condition: Normal Dentition and Removable Dentures/Plates Upper ASA Classification ASA Score: ASA 2 Emergency Case?: No NPO Status NPO Status: NPO Clears >2 hours, Solids >8 hours Anesthesia Plan Resuscitation Status: Full Code Anesthesia Technique: MAC Anesthesia Airway Planned: Natural Airway Monitors Used: Standard Monitors
[2022-08-04 09:06] VITALS: BMI 22.8
[2022-08-04] MEDS: Tetracaine 0.5% 4 ML BTL OD (09:40)
[2022-08-04] MEDS: Lidocaine 2% Jelly 6 ML SYR (09:46)
[2022-08-04] MEDS: Balanced Salt Soln.-PLUS 500 ML BAG (09:46)
[2022-08-04] MEDS: Duovisc Viscoelastic System EACH 1 EACH (09:46)
[2022-08-04] MEDS: Povidone-Iodine Ophth 30 ML BTL (09:47)
[2022-08-04] MEDS: Trypan Blue 0.06% 0.5 ML SYR (09:47)
[2022-08-04 10:15] VITALS: BP 113/65; PULSE 58; RESP 16; TEMP 36.4; O2SAT 100
--- NOTE | 2022-08-04 10:16 | W.PM.DSUDISC ---
Date of service: 08/04/22 Time of Service: 10:16 Discharge Plan Disposition Patient Disposition: Home Discharge Details Attending Provider: Ubaldo Huizar Primary Care Provider: Shirin Beltrán Home Meds and New Rx's Prescriptions: No Action trazodone 50 mg tablet 50 mg PO QHS PRN methotrexate sodium 2.5 mg tablet 7.5 mg PO QWEEK niacin 500 mg tablet 500 mg PO DAILY epinephrine 0.3 MG/SYR auto-injector 0.3 mg IJ PRN zolpidem 5 MG tablet 5 mg PO .HS PRN folic acid 1 mg Tablet 1 mg PO DAILY prazosin 1 mg Capsule 1 mg PO QHS Discharge Instructions Stand Alone Forms: Post-op Topical Cataract, Christina Lin (DSU) Discharge Orders Discharge Orders: Discharge Order (Routine); Ordered 08/04/22 Ordered By: Ubaldo Huizar DS: Diagnosis Discharge Diagnosis (1) Cortical cataract of right eye: Status: Resolved
--- NOTE | 2022-08-04 10:17 | W.ANESPOSTOP ---
Postoperative Evaluation Date, Time and Location Date Performed: 08/04/22 Time Performed: 10:17 Patient Location: Day Surgery Unit Vital Signs Most Recent Imported Vital Signs: Most Recent Vital Signs Temp Pulse Resp BP Pulse Ox 36.2 C L 54 L 16 118/68 96 08/04/22 08:40 08/04/22 08:40 08/04/22 08:40 08/04/22 08:40 08/04/22 08:40 Most Recent Manually Entered Vital Signs: Adult Blood Pressure: 113/65 Heart Rate: 58 Respirations: 16 Oxygen Saturation (%): 98 Temperature (C): 36.4 C Pain Score (0-10 Scale): 0 Pain Score Most Recent Pain Score: Most Recent Pain Score Pain Level 0 08/04/22 08:40 Assessment Mental Status: Awake (Alert & Oriented to Patient Baseline) Airway and Respiratory Function: Patent airway with normal (patient baseline) respiratory exam Cardiovascular Function: Hemodynamically Stable Hydration Status: Adequately Hydrated Nausea & Vomiting: No Nausea or Vomiting Pain: Pt. Denies Any Pain Peripheral Nerve Block: Patient did not receive a nerve block
--- NOTE | 2022-08-04 10:17 | W.PM.OP ---
Date of service: 08/04/22 Time of Service: 10:17 Operative Note Operative Note DATE OF PROCEDURE: 08/04/22 PRE-OP DIAGNOSIS: Dense cortical cataract, right eye Absent red reflex, right eye POST-OP DIAGNOSIS: same PROCEDURE: Cataract extraction using phacoemulsification with intraocular lens implantation, right eye, using capsular staining with Vision Blue SURGEON: Ubaldo Huizar ANESTHESIA TYPE: Local By Surgeon and MAC Refer to Anesthesia Record PATHOLOGY: none sent COMPLICATIONS: None Patient was transported to: same day Patient's condition: stable Implants: Hector and Hector / [employer] Tecnis [id number] Indications: Progressive visual loss due to cataract, right eye Procedure Description: CATARACT SURGERY OPERATIVE REPORT PREOPERATIVE DIAGNOSIS: 1. Dense cortical cataract, right eye 2. Poor red reflex secondary to #1 POSTOPERATIVE DIAGNOSIS: Same OPERATION: 1. Cataract extraction using phacoemulsification with posterior chamber intraocular lens implant, right eye. 2. Capsular staining with Vision Blue IOL: IOL Fixed Income Manager/Model: Hector & Hector / GILDA Tecnis ZCB00 IOL Power: + 18.5 diopters IOL Serial Number: [id number] Optic Diameter: 6.0mm Haptic/Overall Diameter: 13.0mm PHACO INFO: Nash Centurion Vision System with OZil and Active Fluidics Cumulative Dispersed Energy (CDE): 6.89 seconds SURGEON: Ubaldo Huizar MD, GARY ANESTHESIA: Monitored Anesthesia Care (MAC), with local sub-tenon's anesthetic infiltration COMPLICATIONS: None SPECIMENS: None INDICATIONS FOR PROCEDURE: The patient is a 62-year-old gentleman with history of progressive decreased vision in both eyes secondary to the development of dense bilateral cortical cataracts. He has already undergone cataract surgery in the left eye and is doing well postoperatively. He now presents for cataract surgery in the right eye. PROCEDURE: The correct surgical eye was identified and marked as the right eye and the pupil was dilated in the preoperative area using mydriatics and cycloplegics. The dilated pupil size was 6.5mm. Oral sedation was administered in the form of an Imprimis MKO Melt (midazolam 3mg/ketamine 25mg/ondansetron 2mg). The patient was brought to the operating room where cardiopulmonary monitoring was instituted and surgical time-out was performed, confirming the correct operative eye and IOL power. Topical anesthesia was administered and ophthalmic povidone-iodine 5% was instilled into the conjunctival fornices. Lidocaine gel was applied to the cornea and the dusty-ocular area was prepped with Betadine 10% solution and draped in the usual sterile fashion for intraocular surgery, including an aperture drape. A Tegaderm transparent film dressing was cut in half and used to cover the lashes and lid margins. Care was taken to sequester the lashes and lid margins under the Tegaderm dressing. A lid speculum was placed between the lids of the operative eye and the Nash LuxOR Revalia operating microscope was maneuvered into position. Andrew scissors were then used to make a conjunctival buttonhole approximately 6mm posterior to the limbus in the inferonasal quadrant. Blunt dissection was carried out to expose bare sclera, and a blunt-tipped sub-tenon?s anesthesia cannula was introduced and passed posteriorly along the globe where non-preserved plain lidocaine was injected into posterior sub-Tenon?s space. A sideport knife was used to make a paracentesis port inferotemporally. Intraocular phenylephrine/lidocaine was injected into the anterior chamber. Air was injected into the anterior chamber, followed by Vision Blue, which was painted over the anterior capsule and then irrigated out with BSS. The anterior chamber was filled with viscoelastic. A keratome knife was used to create a 2-plane near clear corneal tunnel extending approximately 2 mm into clear cornea superior temporally.. A flap was raised on the anterior capsule and capsulorhexis forceps were used to complete a continuous curvilinear capsulorhexis of 5.0mm. Balanced salt solution was then used to perform cortical cleaving hydrodissection and nuclear hydrodelineation until the lens could be freely rotated within the capsular bag. The lens nucleus was then disassembled and removed within the capsular bag and iris plane using phacoemulsification. Residual cortical material was removed using the I/A handpiece. The posterior capsule was carefully polished to remove as much residual lens epithelial cells as safely possible. The capsular bag was then inflated and the anterior chamber deepened with viscoelastic. The lens implant described above was inserted into the capsular bag using the GILDA [place] Injector. A Kuglen hook was used to dial the IOL into position. Residual viscoelastic was then removed first from posterior to the IOL, then from the anterior chamber using the I/A handpiece. The lens implant was noted to center nicely within the capsular bag. The incisions were stromally hydrated, and the anterior chamber was reformed using BSS. Then 0.5cc of moxifloxacin 1.0mg/ml were injected into the capsular bag and anterior chamber. The incisions were checked with a Weck spear and found to be secure. Several drops of ophthalmic povidone-iodine 5% were then applied to the eye followed by two drops of Imprimis combination prednisolone/moxifloxacin/nepafenac solution. The drapes were removed and a clear plastic protective eye shield was placed over the eye. The patient was then returned to Same Day Surgery in stable condition.
[2022-08-04 10:18] VITALS: BP 113/65; PULSE 58; RESP 16; TEMPC 36.4; O2SAT 98
[2022-08-04 10:47] VITALS: BP 137/72; PULSE 53; RESP 16; TEMP 36.2; O2SAT 97
== END 2022-08-04 10:50 | disposition home or self-care (01) ==
LOC: SUR 08:03
PROVIDERS: PCP Family Medicine; Visit Provider Ophthalmology
PROC: (CPT 66982; principal; 2022-08-04 10:30)
DX: H25.011 Cortical age-related cataract, right eye (principal); H26.8 Other specified cataract
CPT/HCPCS: 66982; V2632

== ENCOUNTER 2023-09-17 19:47 | Outpatient (REF) | payer BC, SELFPAY ==
[2023-09-17 20:04] LABS: HCT 44.3 % (40.0-50.0); HGB 14.5 g/dL (13.5-17.5); MCH 29.8 pg (27.0-33.0); MCHC 32.7 % (32.0-36.0); MCV 91 fL (80-95); MPV 10.3 fL (8.0-11.0); Platelet Count 267 10^3/uL (130-400); RBC 4.86 10^6/uL (4.36-5.78); RDW 13.5 % (11.8-14.1); WBC 8.17 10^3/uL (4.4-10.8)
[2023-09-17 20:23] LABS: ALT 34 U/L (16-63); AST 24 U/L (15-37); Albumin 4.6 g/dL (3.4-5.0); Alkaline Phosphatase 61 U/L (46-116); Anion Gap 7.6 mmol/L (3-11); BUN 22 mg/dL (7-18); CO2 31.4 mmol/L (21.0-32.0); CREATININE 1.3 mg/dL (0.70-1.30); Calcium 10.2 mg/dL (8.5-10.1); Calculated LDL 194 mg/dL (<100); Chloride 103 mmol/L (98-107); Cholesterol 293 mg/dL (<200); Estimated GFR 61.73 (mL/min/1.73m2); Glucose 102 mg/dL (74-106); HDL Cholesterol 80 mg/dL (40-60); Potassium 4.8 mmol/L (3.5-5.1); Sodium 142 mmol/L (136-145); Total Protein 8.4 g/dL (6.4-8.2); Triglyceride 98 mg/dL (<150)
[2023-09-17 20:40] LABS: Hemoglobin A1C 5.7 % (<5.7)
[2023-09-17 21:42] LABS: Bilirubin, Total 0.4 mg/dL (0.2-1.0)
== END 2023-09-17 19:48 | disposition home or self-care (01) ==
LOC: NCHCN 19:47
PROVIDERS: PCP Family Medicine; Visit Provider Family Medicine
DX: Z13.6 Encounter for screening for cardiovascular disorders (principal); Z13.1 Encounter for screening for diabetes mellitus; Z51.81 Encounter for therapeutic drug level monitoring; Z79.899 Other long term (current) drug therapy
CPT/HCPCS: 80053; 80061; 85027; 83036

== ENCOUNTER 2024-04-10 08:35 | Outpatient (CLI) | payer BC, SELFPAY ==
--- OUTSIDE RECORDS SUMMARY | 2024-04-10 08:38 | XMS_ITS | Encounter Summary ---
Author Organization [facility] Address [facility] [place] [address] Care Team Providers Care Hotel Supplies Salesperson Name Role Phone Shirin Beltrán MD Primary Care Provider [phone] Reason for Visit * Reason Comments Right Shoulder Pain * Consultation (Urgent) - Closed Specialty Diagnoses / Procedures Referred By Azeb foster Referred To Contact Orthopaedics Diagnoses Labral tear of shoulder, right, initial encounter Right shoulder pain and swelling MRI 10.31.19 shows Right shoulder tear Flip Garcia MD [address] [facility] [address] [place] [address] [facility] [address] [place] [id number] Referral ID Status Reason Start Date Expiration Date V isits Requested Visits Authorized [id number] Closed Consult, Test & Treat 06/20/2019 06/19/2020 1 1 Encounter Details Date Type Department Care Team (Late st Contact Info) Description 06/24/2019 1:30 PM EST [place] [address] Saul Glover MD [facility] [place] [address] Right shoulder pain, unspecified chronicity Social History Tobacco Use Types Packs/Day Years Used Date Smoking Tobacco: Never Smokeless Tobacco: Never Alcohol Use Standard Drinks/Week Comments Yes 0 (1 standard drink = 0.6 oz pur e alcohol) occasional Sex and Gender Information Value Date Recorded Sex Assigned at Male 10/19/2020 2:01 PM EST Gender Identity Male 10/19/2020 2:02 PM EST Sexual Orientation Straight 10/19/2020 2: 01 PM EST documented as of this encounter Last Filed Vital Signs Vital Sign Reading Time Taken Comments Blood Pressure 139/77 06/24/2019 1:09 PM EST Pulse 82 06/24/2019 1:09 PM EST Temperature - - Respiratory Rate - - Oxygen Saturation - - Inhaled Oxygen Concentration - - Weight 65.8 kg (145 lb) 06/24/2019 1:09 PM EST v erbal Height 172.7 cm (5' 8) 06/24/2019 1:09 PM EST v erbal Body Mass Index 22.05 06/24/2019 1:09 PM EST documented in this encounter Progress Notes * Saul Glover MD - 06/24/2019 1:30 PM EST Chief complaint: Right shoulder pain and deformity HPI: 59-year-old gentleman presents with acute on chronic right shoulder pain. He has had 2 years of mild to moderate shoulder discomfort. He is been able to continue with tennis. He gets treatment for lupus in [facility]. 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 He actually had minimal pain initially but did note deformity of his biceps.Over the last several days he is noted progressive lateral shoulder pain. He was seen by Dr. Flip Serrano in [facility] who ordered an MRI scan. He is here today to review that. He is accompanied by his . On exam this is an healthy 59-year-old male in no distress. Active forward elevation of the right shoulder is to 160 degrees. He has weakness in the empty can position. No weakness in external rotation with the arm at the side. No pain over the AC joint. No significant biceps pain. He does have a mild biceps deformity. Imaging: I reviewed his MRI scan and x-rays are normal. MRI scan shows full- thickness tear of the anterior fibers of the supraspinatus tendon with retraction of the middle of the joint. Biceps tendonis absent. No obvious subscapularis or infraspinatus tearing. A/P: 59-year-old male with acute on chronic right shoulder symptoms, MRI suggestive of an acute supraspinatus rupture. We discussed at length. I think he benefit from surgical repair. I explained thedowntime required. I also explained the natural history of rotator cuff deficiency. He would like to think about things and will call if he like to move forward with surgery. If he chooses to do so Iwould place orders and would like to see him back for preoperative visit. documented in this encounter Miscellaneous Notes * Addendum Note - Saul Glover MD - 06/24/2019 1:30 PM ESTAddended by: SAUL GLOVER on: 06/25/2019 11:05 AM Modules accepted: Orders documented in this encounter Plan of Treatment Not on file documented as of this encounter Procedures Procedure Name Priority Date/Time Associated Diagnosis Comments ARTHROSCOPY SHOULDER,ROTATOR CUFF REPAIR Routine 06/25/2019 11:05 AM EST Right shoulder pain, unspecified chronicity documented in this encounter Visit Diagnoses Diagnosis Right shoulder pain, unspecified chronicity documented in this encounter Care Teams Hotel Supplies Salesperson Relationship Specialty Start Date End Date Shirin Beltrán MD [address] [place] [address] PCP - General Family Medicine 09/13/15 documented as of this encounter
--- OUTSIDE RECORDS SUMMARY | 2024-04-10 08:38 | XMS_ITS | Encounter Summary ---
Author Organization [facility] Address [facility] [place] [address] Care Team Providers Care Personal Lines Appraiser Name Role Phone Shirin Beltrán MD Primary Care Provider [phone] Reason for Visit * Reason Comments Follow-up R Shoulder Scope, DO S 08.25.19 Encounter Details Date Type Department Care Team (Late st Contact Info) Description 01/27/2020 11:30 AM EDT Office [place] [address] Taurus Glover MD [facility] [place] [address] Status post right rotator cuff repair, 08/25/2019, Dr. Glover. Massive repair. Social History Tobacco Use Types Packs/Day Years Used Date Smoking Tobacco: Never Smokeless Tobacco: Never Alcohol Use Standard Drinks/Week Comments Not Currently 0 (1 standard drink = 0.6 oz pure alcohol) pt reports quitting on 06.24.19 Sex and Gender Information Value Date Recorded Sex Assigned at Male 10/19/2020 2:01 PM EST Gender Identity Male 10/19/2020 2:02 PM EST Sexual Orientation Straight 10/19/2020 2: 01 PM EST documented as of this encounter Last Filed Vital Signs Vital Sign Reading Time Taken Comments Blood Pressure 125/62 01/27/2020 11:22 AM EDT Pulse 62 01/27/2020 11:22 AM EDT Temperature - - Respiratory Rate - - Oxygen Saturation - - Inhaled Oxygen Concentration - - Weight 65.8 kg (145 lb) 01/27/2020 11:22 AM EDT Height 172.7 cm (5' 8) 01/27/2020 11:22 AM EDT Body Mass Index 22.05 01/27/2020 11:22 AM EDT documented in this encounter Progress Notes * Taurus Glover MD - 01/27/2020 11:30 AM EDT Case Date: 08/25/2019 Postoperative diagnosis: Rotator Cuff Tear, right shoulder ?? Procedure(s) (LRB): ARTHROSCOPY SHOULDER, ROTATOR CUFF REPAIR (WRVU 15.59) (Right) ARTHROSCOPY SHOULDER DEBRIDEMENT EXTENSIVE (WRVU 8.36) (Right) ARTHROSCOPY SHOULDER, SUBACROMIAL DECOMPRESSION (WRVU 3) (Right) MODIFIER BEACH CHAIR [place] (Right) 5-month status post the above surgery. Tylor is much improved from his visit with us 1 month ago. Hehas been back into PT regaining range of motion starting to build some strength. He still bothered by pain at night generally wakes him around 1 in the morning and he has to get up and do some work. Otherwise he feels like he is making good progress and he actually started playing some tennis a fewweeks ago. Exam: Active forward elevation today to 160 degrees. Internal rotation to mid lumbar spine. He has good strength in external rotation with the arm at the side, however only 4 to 4+ out of 5 in the empty can position. A/P: 60-year-old male 5 months postop from rotator cuff repair. Much improved from a visit 1 month ago due to excellent PT. I do think it is a bit early for her to be playing tennis and I advised himto wait another month. I will plan a final phone call follow-up with him at about 7 months postop. documented in this encounter Plan of Treatment Not on file documented as of this encounter Visit Diagnoses Diagnosis Status post right rotator cuff repair, 08/25/2019, Dr. Glover. Massive repair. documented in this encounter Care Teams Personal Lines Appraiser Relationship Specialty Start Date End Date Shirni Beltrán MD [address] [place] [address] PCP - General Family Medicine 09/13/15 documented as of this encounter
--- OUTSIDE RECORDS SUMMARY | 2024-04-10 08:38 | XMS_ITS | Encounter Summary ---
Author Organization [facility] Address [facility] [place] [address] Care Team Providers Care Medical Editor Name Role Phone Shirin Beltrán MD Primary Care Provider Reason for Visit * Reason Onset Date Comments Medication Refill 08/28/2019 Encounter Details Date Type Department Care Team (Late st Contact Info) Description 08/28/2019 Refill [place] [address] Brock Bucio MD [facility] DR [place] [address] Social History Tobacco Use Types Packs/Day Years [...] PM EST documented as of this encounter Miscellaneous Notes * Telephone Encounter - Shannan Lopez LPN - 08/28/2019 10:49 AM EST Medication Refill Request Surgery: 08/25/2019 ?? Surgeon: Surgeon(s) and Role: Taurus Glover MD - Primary Brock Bucio MD - Resident Preoperative diagnosis: Rotator Cuff Tear, right shoulder ?? Postoperative diagnosis: Rotator Cuff Tear, right shoulder ?? Procedure(s) (LRB): ARTHROSCOPY SHOULDER, ROTATOR CUFF REPAIR (WRVU 15.59) (Right) ARTHROSCOPY SHOULDER DEBRIDEMENT EXTENSIVE (WRVU 8.36) (Right) ARTHROSCOPY SHOULDER, SUBACROMIAL DECOMPRESSION (WRVU 3) (Right) MODIFIER BEACH CHAIR [place] (Right) Original Provider: Brock Bucio MD Learning Needs Assessment done within 12 months (no change identified): 06/24/2019 Medication being requested: oxycodone 5 mg tablet Last refill: 08/25/2019 # 30 Pills remaining: # 5 Seen within 30 days (if no, than when): 08/19/2019 Follow Up: 09/09/2019 How is this medication being used currently: taking 10 mg every 4-6 hours. Patient reports I have to take 10 mg at 2 am for pain and discomfort Pain level: 7/10 Bowel concerns: BM yesterday Other pain medications used and how: Tylenol 1,000 mg Query: Must be completed today: consistent with orthopaedic prescribing Risk assessment: low Prescription sent electronically to [facility] The patient knows how to contact orthopaedics if any further questions or concerns occur. documented in this encounter Plan of Treatment Not on file documented as of this encounter Visit Diagnoses Not on filedocumented in this encounter Care Teams Medical Editor Relationship Specialty Start Date End Date Shirin Beltrán MD [address] [place] [address] PCP - General Family Medicine 09/13/15 documented as of this encounter
--- OUTSIDE RECORDS SUMMARY | 2024-04-10 08:38 | XMS_ITS | Encounter Summary ---
Author Organization [facility] Address [facility] [place] [address] Care Team Providers Care Supervisor Drawing Name Role Phone Shirin Beltrán MD Primary Care Provider [phone] Encounter Details Date Type Department Care Team (Late st Contact Info) Description 05/28/2019 Ancillary [place] [address] Williams Maldonado MD [facility] [place] [address] Social History Tobacco Use Types Packs/Day Years Used Date Smoking Tobacco: Never Smokeless Tobacco: Never Sex and Gender Information Value Date Recorded Sex Assigned at Male 10/19/2020 2:01 PM EST Gender Identity Male 10/19/2020 2:02 PM EST Sexual Orientation Straight 10/19/2020 2: 01 PM EST documented as of this encounter Plan of Treatment Not on file documented as of this encounter Procedures Procedure Name Priority Date/Time Associated Diagnosis Comments FILM LIBRARY STORAGE ONLY MR SHOULDER Routine 05/28/2019 12:00 AM EDT documented in this encounter Results * Film Library- Storage Only MR Shoulder (05/28/2019 12:00 AM EDT) Narrative [facility] - 06/20/2019 7:11 PM EDT This exam is auto-finalizing. It's purpose is for storage only. Williams Maldonado MD [facility] FILM LIBRARY ORD ERABLES [place], [place] documented in this encounter Visit Diagnoses Not on filedocumented in this encounter Care Teams Supervisor Drawing Relationship Specialty Start Date End Date Shirin Beltrán MD [employer] [address] [employer] [address] [place] [address] PCP - General Family Medicine 09/13/15 documented as of this encounter
--- OUTSIDE RECORDS SUMMARY | 2024-04-10 08:38 | XMS_ITS | Encounter Summary ---
Author Organization [facility] [place] [address] Care Team Providers Care Medtronics Technician Name Role Phone Sihrin Beltrán MD Primary Care Provider [phone] Reason for Visit * Reason Comments Travel Consult Encounter Details Date Type Department Care Team (Late st Contact Info) Description 09/03/2017 2:00 PM EST Office [place] [address] Shefali Young RN Need for prophylactic vaccination with typhoid-paratyphoid (TAB) vaccine; Counseling about travel Social History Tobacco Use Types Packs/Day Years Used Date Smoking Tobacco: Never Smokeless Tobacco: Never Sex and Gender Information Value Date Recorded Sex Assigned at Male 10/19/2020 2:01 PM EST Gender Identity Male 10/19/2020 2:02 PM EST Sexual Orientation Straight 10/19/2020 2: 01 PM EST documented as of this encounter Progress Notes * Shefali Young, RN - 09/03/2017 2:00 PM EST Adult Travel Clinic Reason for Visit: Abida Das is a 57 y.o. male patient who comes to travel clinic today for pre-travel evaluation, vaccination and traveler's health education. Trip Details: Destination countries (list from first to last): [place], [place] then to [facility] outside of [facility] x 2 days, then [place]- [place] / [place] [facility] [place] [facility], [place] x 3 days including a hike to a village to do service work x 1 day, then [place] x 2 days, then will fly to [facility] x 2 days. [facility] x 1 day, [facility] x 2 days. 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 Raynaud's disease I73.00 ??? Insomnia G47.00 ??? Health care maintenance Z00.00 Current Outpatient Prescriptions Medication Sig Dispense Refill ??? EPINEPHrine 0.3 mg/0.3 mL Auto-Injector Inject 0.3 mg into the muscle once. ??? naproxen sodium (ALEVE) 220 mg Capsule Take 500 mg by mouth as needed. ??? zolpidem (AMBIEN) 10 mg Tablet Take 10 mg by mouth nightly as needed for Sleep. ??? atovaquone-proguanil (MALARONE) 250-100 mg Tablet Take 1 tablet by mouth daily. Start 1 day before travel to risk area,daily in risk area and daily for one week after leaving risk area. 13 tablet0 ??? azithromycin (ZITHROMAX) 500 mg Tablet Take 1 tablet by mouth daily. Take once daily for fever with diarrhea. 3 tablet 0 No current facility-administered medications for this visit. Immunosuppression: none History of adverse vaccine reactions: no History of latex, egg or beesting allergy: bees sting allergy. Has an in date epi-pen. Patient advised to carry all medications in carry on luggage. Travel Health and Safety Issues: A discussion of travel health hazards and safety issues was done, including the following topics: traffic-accidents (alcohol, seatbelts), crime, alcohol related issues, sun exposure/heat illness, Schistosomiasis and other fresh water exposures, rabies, HIV infections, Hepatitis and other STD's, control, TB, Health Insurance coverage/[employer]. Discussed food and water precautions and patient handout provided. The following strategies were recommended for the management of traveler's diarrhea according to severity: ?? For treatment of mild diarrhea: hydration and over the counter antidiarrheal recommended. ?? For treatment of diarrhea accompanied by fever or systemic illness: hydration and empiric treatment with antibiotic recommended. A prescription for Azithromycin 500 mg daily x 3 days sent to pharmacy. Discussed antibiotic use, resistance and colonization issues. Advised to use antibiotics only for more severe symptoms, fever or worsening diarrhea. ?? For severe or bloody diarrhea, or diarrhea accompanied by vomiting: patient advised to seek medical treatment. Vector-borne Disease Prevention Discussed insect bite prevention to reduce risk of malaria, dengue, chikungunya and other insect borne illnesses. Handout given. Discussed Zika virus and the importance of mosquito precautions. Advised condom use while in area at risk and for six months after return to the [place]. Malaria Risk: Significant risk of malaria on this itinerary. Discussed malaria chemoprophylaxis and possible sideeffects. Prescription for Malarone was given to the patient. Altitude: This trip does not involve high altitude. Immunizations Immunization History Administered Date(s) Administered ??? Inactivated Polio Vaccine 09/13/2015 ??? Influenza Vaccine w/Preservative, Split 07/09/2015, 05/20/2017 ??? MMR Vaccine, Live 03/20/2006 ??? Typhoid Live, Oral 09/03/2017 Immunizations given today- oral typhoid. Traveler presents with minimal immunization record. He grew up in [place] and reports that he has previously done hepatitis A titers which were positive. He reports receiving an influenza vaccine in the fall and that he is current with tetanus vaccine. Discussed Pashto encephalitis disease transmission, risk and vaccine. Traveler opts to forgo vaccination and employ meticulous mosquito precautions. Rabies- discussed animal avoidance, wound care and need for post-exposure prophylaxis. Traveler wasunsure if he had received rabies pre-vaccination previously. He reported on his questionnaire that he had received it but when I described it he thought he was confusing it with another vaccine. I encouraged him to locate documentation to verify if he is pre-vaccinated or not and to consider himself not pre-vaccinated unless he can verify status. Follow-up Recommendations: Patient advised to call travel clinic if they return from trip with any illness. Time spent in travel counselin minutes. Vaccine information sheets given. documented in this encounter Plan of Treatment Not on file documented as of this encounter Visit Diagnoses Diagnosis Need for prophylactic vaccination with typhoid-paratyphoid (TAB) vaccine Need for prophylactic vaccination with typhoid-paratyphoid alone (TAB) Counseling about travel Other specified counseling documented in this encounter Care Teams Medtronics Technician Relationship Specialty Start Date End Date Shirin Beltrán MD [address] [facility] [place] [address] PCP - General Family Medicine 09/13/15 documented as of this encounter
--- OUTSIDE RECORDS SUMMARY | 2024-04-10 08:38 | XMS_ITS | Encounter Summary ---
Author Organization [facility] Address [facility] [place] [address] Care Team Providers Care Unemployment Inspector Name Role Phone Shirin Beltrán MD Primary Care Provider [phone] Reason for Visit * Reason Onset Date Comments Pre Procedure Call 06/25/2019 Encounter Details Date Type Department Care Team (Late st Contact Info) Description 06/25/2019 Telephone [place] [address] Taurus Handley MD [facility] [place] [address] Pre Procedure Call Social History Tobacco Use Types Packs/Day Years [...] encounter Miscellaneous Notes * Telephone Encounter - Tasha Avina - 06/26/2019 11:15 AM EST I called and left a message for patient to call [phone] directly and schedule surgery with Dr. handley. * Telephone Encounter - Jesica Graham - 06/25/2019 12:04 PM EST Left message to go over the Health Assessment for the OSC documented in this encounter Plan of Treatment Not on file documented as of this encounter Visit Diagnoses Not on filedocumented in this encounter Care Teams Unemployment Inspector Relationship Specialty Start Date End Date Shirin Beltrán MD [facility] [address] [facility] [place] [address] PCP - General Family Medicine 09/13/15 documented as of this encounter
--- OUTSIDE RECORDS SUMMARY | 2024-04-10 08:38 | XMS_ITS | Encounter Summary ---
Author Organization [facility] Address [facility] [place] [address] Care Team Providers Care Adzing And Boring Machine Helper Name Role Phone Shirin Beltrán MD Primary Care Provider [phone] Reason for Referral * Consultation (Routine) - Closed Specialty Diagnoses / Procedures Referred By Azeb foster Referred To Contact Rheumatology Diagnoses Systemic sclerosis Shirin Beltrán MD [address] [place] [address] Flip Garcia MD [facility] [place] [address] Referral ID Status Reason Start Date Expiration Date V isits Requested Visits Authorized [id number] Closed Consult, Test & Treat PCP Updated and/or Approved 02/23/2022 02/23/2023 6 6 Encounter Details Date Type Department Care Team (Late st Contact Info) Description 02/23/2022 Transcribe Orders eDH Incoming Referrals [phone] Shirin Beltrán MD [address] [place], [place] [id number] Systemic sclerosis Social History Tobacco Use Types Packs/Day Years Used Date Smoking Tobacco: Never Smokeless Tobacco: Never Alcohol Use Standard Drinks/Week Comments Not Currently 0 (1 standard drink = 0.6 oz pure alcohol) pt reports quitting on 11.5.19 Sex and Gender Information Value Date Recorded Sex Assigned at Male 10/19/2020 2:01 PM EST Gender Identity Male 10/19/2020 2:02 PM EST Sexual Orientation Straight 10/19/2020 2: 01 PM EST documented as of this encounter Plan of Treatment Scheduled Referrals Name Type Priority Associated Diagnoses Order Schedule Referral to Rheumatology Outpatient Referral Routine Systemic sclerosis Ordered: 02/23/2022 documented as of this encounter Visit Diagnoses Diagnosis Systemic sclerosis documented in this encounter Care Teams Adzing And Boring Machine Helper Relationship Specialty Start Date End Date Shirin Beltrán MD [facility] [address] [place] [address] PCP - General Family Medicine 09/13/15 documented as of this encounter
--- OUTSIDE RECORDS SUMMARY | 2024-04-10 08:38 | XMS_ITS | Encounter Summary ---
Author Organization [facility] [place] [address] Care Team Providers Care Registered Nurse Cardiac Telemetry Name Role Phone Shirin Beltrán MD Primary Care Provider [phone] Encounter Details Date Type Department Care Team (Late st Contact Info) Description 12/23/2019 11:45 AM EDT Office Visit Physical Therapy at [facility] [address] [place] [address] Chris Ny, PT Stiffness of right shoulder joint; Right shoulder pain, unspecified chronicity; Status post right rotator cuff repair, 08/25/2019, [...] as of this encounter Miscellaneous Notes * Treatment - Therapy - Chris Ny, PT - 12/23/2019 11:45 AM EDT Images from the original note were not included. Physical Therapy Note - Orthopaedic Clinic brief, PT eval and instruction therapeutic exercise. DIAGNOSIS and pertinent co-morbidities: 1. Stiffness of right shoulder joint 2. Right shoulder pain, unspecified chronicity 3. Status post right rotator cuff repair, 08/25/2019, Dr. Glover. Massive repair. DATE of injury/surgery: 08/25/2019 Referring Provider: Dr. Adalberto Childs CHIEF COMPLAINT: Right shoulder stiffness 4 months s/p massive right rotator cuff repair Total treatment time: 30 minutes Total timed code treatment: 30 minutes Follow up visit for patient with: 1. Stiffness of right shoulder joint 2. Right shoulder pain, unspecified chronicity 3. Status post right rotator cuff repair, 08/25/2019, Dr. Glover. Massive repair. History of Current Problem: Tylor Tai is a 59 y.o. male seen today in Orthopaedic clinic for a brief PT consultregarding his right shoulder stiffness s/p massive right rotator cuff repair on 08/25/2019. He is doing well overall since surgery and had been working regularly with a physical therapist near his [place]up until November 20. Unfortunately, his PT clinic had to shut down due to the [address] [facility] and he's been unable to be seen since. He has been keeping up with his previous PT exercises andusing his shoulder pulleys at home but notes continued stiffness in the shoulder without much recent improvement. He has been doing some light yard work without much discomfort. He remains limited inhis overall activity and his primary goal for PT is to be able to get back to playing tennis. Objective: PAIN: at best: 3/10; at worst: 6/10 Located: lateral arm and shoulder; Describes pain as: aching OBSERVATION: normal appearing posture. Increased protraction and elevation RT vs LT RIGHT SHOULDER ROM: Active: Forward Flexion: 140 deg Abduction: 130 deg ER: At side: 50 deg, at 90/90: 65 deg IR: BB to sacrum. Passive: Forward Flexion: 160 deg, capsular end feel with end-range pain Abduction: 140 deg, capsular end feel with end-range pain. ER: 55 deg, capsular end feel, at 90/90: 65 deg capsular end feel IR: 50 deg, capsular end feel with end-range pain STRENGTH: Forward Flexion: 4/5 Abduction: 4/5 ER: 4+/5 IR: 5/5 FLEXIBILITY: decreased flexibility: pectoralis, upper trapezius and posterior capsule NEUROVASCULAR: Intact, denies any numbness and tingling ASES 12/19/2019 Pain medication Yes Narcotics No Pills per day 1 Pain in shoulder at night - Right Yes Pain today - Right 6 Unstable - Right No How unstable - Right 5 Put on a coat - right Somewhat difficult Sleep - right Somewhat difficult Wash back / do up bra - right Very difficult to do Manage toiletting - right Somewhat difficult Comb hair - right Somewhat difficult Reach high shelf - right Somewhat difficult Lift 10 lbs above shoulder - right Not difficult Throw ball overhand - right Somewhat difficult Do usual work - right Somewhat difficult Do usual sport - right Somewhat difficult ASES VAS-RIGHT 6 ASES ADL-RIGHT ARM 20 ASES RIGHT ARM 53.33 Assessment: Tylor Tai a 59 y.o. male who is 4 month s/p massive right rotator cuff repair andseen for a PT consult today at his Orthopaedic follow-up. He appears to be recovering well overall but presents with range of motion limitations and end-range stiffness in all planes. His progress has been limited by his lack of access to regular physical therapy due the Lloyd Virus. Provided manual shoulder mobility today and reviewed his home exercises. He is able to tolerate passive mobility and end-range capsular motion with minimal irritability in the shoulder. We reviewed additional shoulder range of motion and stretching exercises to address his limitations. We will plan to follow-up w ith him weekly via telehealth appointments given he lives over an hour away. Pending his progress we may have him come to the clinic periodically for manual PT if his shoulder motion is not improving. Clinical presentation: Stable Evolving Unstable X Notes: Evolving status due to continued recovery from recent surgery Clinical decision making of low complexity using standardized patient assessment instrument and measurable assessment of functional outcome. Plan: Weekly physical therapy visits: 1 x week x 8 weeks. Combination of telehealth and in-person PT visits pending patients progress. REHAB POTENTIAL: GOOD for achieving below stated goals: Physical Therapy Goals (8 weeks): 1. Pt will reach overhead through full functional AROM for improved reaching ability during IADL completion at home. 2. Pt will Improve ASES score to 65% to demo an increase in functional mobility and use of the affected shoulder and to meet a clinically meaningful difference from initial evaluation score (MCID=11.4 points). 3. Pt will lift 3 lb object with the right arm (elbow extended) to above shoulder height without pain x10 for improved lifting ability during IADL completion. CHRIS NY, PT, DPT, OCS documented in this encounter Plan of Treatment Not on file documented as of this encounter Visit Diagnoses Diagnosis Stiffness of right shoulder joint Right shoulder pain, unspecified chronicity Status post right rotator cuff repair, 08/25/2019, Dr. Glover. Massive repair. documented in this encounter Care Teams Registered Nurse Cardiac Telemetry Relationship Specialty Start Date End Date Shirin Beltrán MD [facility] [address] [place] [address] PCP - General Family Medicine 09/13/15 documented as of this encounter
--- OUTSIDE RECORDS SUMMARY | 2024-04-10 08:38 | XMS_ITS | Encounter Summary ---
Author Organization [facility] [place] [address] Care Team Providers Care Corrections Caseworker Name Role Phone Shirin Beltrán MD Primary Care Provider [phone] Reason for Referral * Diagnostic Test (Routine) - Closed Specialty Diagnoses / Procedures Referred By Contac t Referred To Contact Radiology Diagnoses Foot drop, right Procedures MRI Lumbar Spine wo Contrast (Generic) Flip Garcia MD [facility] [place] [address] [place] [address] Referral ID Status Reason Start Date Expiration Date V isits Requested Visits Authorized [id number] Closed Specialty Service Requested 09/08/2020 03/06/2021 1 1 Reason for Visit * Diagnostic Test (Routine) - Closed Specialty Diagnoses / Procedures Referred By Contac t Referred To Contact Radiology Diagnoses Foot drop, right Procedures MRI Lumbar Spine wo Contrast (Generic) Flip Garcia MD [facility] [place] [address] [place] [address] Referral ID Status Reason Start Date Expiration Date V isits Requested Visits Authorized [id number] Closed Specialty Service Requested 09/08/2020 03/06/2021 1 1 Encounter Details Date Type Department Care Team (Latest Contact Info) Description 09/09/2020 4:00 PM EST - 09/09/2020 11:59 PM EST Hospital Encounter MRI at [facility] [place] [address] Flip Garcia MD [facility] [place] [address] Foot drop, right Discharge Disposition: Home Social History Tobacco Use Types Packs/Day Years [...] PM EST documented as of this encounter Medications at Time of Discharge Medication Sig Dispensed Refills Start Date End Date prazosin (Minipress) 1 mg Capsule TAKE 1 CAPSULE BY MOUTH AT NIGHT 08/17/2020 Ginkgo Biloba 40 mg Tablet Take by mouth. metHOTREXate 2.5 mg Tablet Take 2.5 mg by mouth once a week. 4 tablets by mouth once a week for 90 days naproxen (NAPROSYN) 500 mg Tablet Take 500 mg by mouth Twice daily as needed. folic acid (Folvite) 1 mg Tablet 01/23/2020 acetaminophen (Tylenol) 500 mg Tablet Take 1,000 mg by mouth every 6 hours as needed for Pain. multivitamin (THERAGRAN) Tablet Take 1 tablet by mouth daily. oxyCODONE (Roxicodone) 5 mg TabletIndications:Status post right rotator cuff repair Take 1 tablet by mouth nightly as needed for Pain. 10 tablet 09/09/2019 traZODone (DESYREL) 50 mg Tablet Take 50 mg by mouth nightly. ibuprofen (ADVIL;MOTRIN) 800 mg Tablet TAKE ONE TABLET BY MOUTH EVERY DAY NEEDED 1 05/27/2019 magnesium citrate 100 mg Tablet Take by mouth. EPINEPHrine 0.3 mg/0.3 mL Auto-Injector Inject 0.3 mg into the muscle once. atovaquone-proguanil (MALARONE) 250-100 mg TabletIndications:Belkis rothman about travel Take 1 tablet by mouth daily. Start 1 day before travel to risk area,daily in risk area and daily for one week after leaving risk area. 13 tablet 09/03/2017 azithromycin (ZITHROMAX) 500 mg TabletIndications:Belkis rothman about travel Take 1 tablet by mouth daily. Take once daily for fever with diarrhea. 3 tablet 09/03/2017 zolpidem (AMBIEN) 10 mg Tablet Take 10 mg by mouth nightly as needed for Sleep. documented as of this encounter Plan of Treatment Not on file documented as of this encounter Procedures Procedure Name Priority Date/Time Associated Diagnosis Comments MRI LUMBAR SPINE WITHOUT CONTRAST Routine 09/09/2020 5:13 PM EST Foot drop, right documented in this encounter Results * MRI Lumbar Spine wo Contrast (Generic) (09/09/2020 5:13 PM EST) Anatomical Region Laterality Modality L-spine Magnetic Resonan ce Impressions 09/09/2020 5:20 PM EST Multilevel disc degenerative changes as above. No severe canal stenosis. Comment: The following findings are so common in people without low back pain that while we report their presence, they must be interpreted with caution and in context of the clinical situation (Reference- Alexk Et Al, Spine 2001). Findings: (Prevalence in patients without low back pain), disc degeneration (decreased T2 signal, height loss, bulge) (91%), disc T2-signal loss (83%), disc height loss (56%), disc bulge (64%), disc protrusion (32%), annular fissure (38%). Thank you for letting us participate in the care of this patient. For questions regarding this report, please contact the number below. ? Electronically signed by: Ubaldo Isabel MD, [facility] ([phone]), at 09/09/2020 5:20 PM Narrative 09/09/2020 5:20 PM EST EXAMINATION: MRI LUMBAR SPINE WO CONTRAST (GENERIC) CLINICAL HISTORY: Lumbar radiculopathy, trauma foot drop on right TECHNIQUE: MRI of the lumbar spine performed without intravenous contrast administration. COMPARISON: None FINDINGS: Overall lumbar alignment is normal. There is no focal, aggressive appearing marrow lesion. No focal marrow edema to suggest fracture. The conus is normal in appearance, terminates at L2. Visualized retroperitoneal structures are unremarkable. Findings at specific levels: L1-L2: No canal or foraminal stenosis. L2-L3: There is loss of disc height. Disc bulge produces minor caudal neuroforaminal narrowing. There is slight indentation of the ventral thecal sac. L3-L4: A small left lateral disc protrusion is present in the background of disc bulge which contacts, but does not displace the existing left L3 root. There is mild overall canal narrowing with narrowing of the subarticular recess bilaterally. There is mild to moderate left and mild right foraminal narrowing. L4-L5: Disc bulge and facet arthropathy contributes to mild bilateral foraminal narrowing. There is mild overall canal narrowing. L5-S1: Disc bulge and facet arthropathy produces moderate left foraminal narrowing and narrowing of the subarticular recess. There appears to be a conjoined left L5-S1 nerve root. There is minimal right foraminal narrowing. No canal stenosis. Procedure Note Ubaldo Isabel MD - 09/09/2020 EXAMINATION: MRI LUMBAR SPINE WO CONTRAST (GENERIC) CLINICAL HISTORY: Lumbar radiculopathy, trauma foot drop on right TECHNIQUE: MRI of the lumbar spine performed without intravenous contrastadministration. COMPARISON: None FINDINGS: Overall lumbar alignment is normal. There is no focal, aggressiveappearing marrow lesion. No focal marrow edema to suggest fracture. The conus isnormal in appearance, terminates at L2. Visualized retroperitoneal structures are unremarkable. Findings at specific levels: L1-L2: No canal or foraminal stenosis. L2-L3: There is loss of disc height. Disc bulge produces minor caudal neuroforaminal narrowing. There is slight indentation of the ventralthecal sac. L3-L4: A small left lateral disc protrusion is present in the backgroundof disc bulge which contacts, but does not displace the existing left L3 root.There is mild overall canal narrowing with narrowing of the subarticular recess bilaterally. There is mild to moderate left and mild right foraminalnarrowing. L4-L5: Disc bulge and facet arthropathy contributes to mild bilateralforaminal narrowing. There is mild overall canal narrowing. L5-S1: Disc bulge and facet arthropathy produces moderate left foraminal narrowing and narrowing of the subarticular recess. There appears to germania conjoined left L5-S1 nerve root. There is minimal right foraminalnarrowing. No canal stenosis. IMPRESSION Multilevel disc degenerative changes as above. No severe canal stenosis. Comment: The following findings are so common in people without low backpain that while we report their presence, they must be interpreted with cautionand in context of the clinical situation (Reference- Alexk Et Al, [id number]). Findings: (Prevalence in patients without low back pain), discdegeneration (decreased T2 signal, height loss, bulge) (91%), disc T2-signal loss(83%), disc height loss (56%), disc bulge (64%), disc protrusion (32%), annularfissure (38%). Thank you for letting us participate in the care of this patient. Forquestions regarding this report, please contact the number below. Electronically signed by: Ubaldo Isabel MD, [facility]([phone]), at 09/09/2020 5:20 PM Flip Garcia MD IMG MRI ORDERABLES documented in this encounter Visit Diagnoses Diagnosis Foot drop, right Other acquired deformity of ankle and foot documented in this encounter Care Teams Corrections Caseworker Relationship Specialty Start Date End Date Shirin Beltrán MD [address] [place] [address] PCP - General Family Medicine 09/13/15 documented as of this encounter
--- OUTSIDE RECORDS SUMMARY | 2024-04-10 08:38 | XMS_ITS | Encounter Summary ---
Author Organization [facility] [place] [address] Care Team Providers Care Data Sciences Director Name Role Phone Shirin Beltrán MD Primary Care Provider Reason for Visit * Reason Comments Follow-up r shoulder scope, Do s 08.25.19 Encounter Details Date Type Department Care Team (Late st Contact Info) Description 10/07/2019 10:30 AM EST [place] [address] Taurus Glover MD [facility] [place] [address] Status post right rotator cuff repair, 08/25/2019, [...] Sign Reading Time Taken Comments Blood Pressure 151/51 10/07/2019 10:06 AM EST Pulse 67 10/07/2019 10:06 AM EST Temperature - - Respiratory Rate - - Oxygen Saturation - - Inhaled Oxygen Concentration - - Weight 63.5 kg (140 lb) 10/07/2019 10:06 AM EST Height 172.7 cm (5' 8) 10/07/2019 10:06 AM EST Body Mass Index 21.29 10/07/2019 10:06 AM EST documented in this encounter Progress Notes * Taurus Glover MD - 10/07/2019 10:30 AM EST Case Date: 08/25/2019 Postoperative diagnosis: Rotator Cuff Tear, right shoulder ?? Procedure(s) (LRB): ARTHROSCOPY SHOULDER, ROTATOR CUFF REPAIR (WRVU 15.59) (Right) ARTHROSCOPY SHOULDER DEBRIDEMENT EXTENSIVE (WRVU 8.36) (Right) ARTHROSCOPY SHOULDER, SUBACROMIAL DECOMPRESSION (WRVU 3) (Right) MODIFIER [place] CHAIR SCHLEIN (Right) 6-week status post the above surgery. Tylor is doing well. Still with mild pain. He has been compliant with his sling. He is noticed some sense of popping when he moves his shoulder a bit. We reviewed the intraoperative images together. Exam shows well-healed incisions. External rotation with the arm at the side is to about 5 degrees.Passive forward elevation to 95 today. A/P: 59-year-old male 6 weeks postop doing well. He will initiate PT starting this week in [facility].Follow-up with me in 10 weeks. documented in this encounter Plan of Treatment Not on file documented as of this encounter Visit Diagnoses Diagnosis Status post right rotator cuff repair, 08/25/2019, Dr. Glover. Massive repair. documented in this encounter Care Teams Data Sciences Director Relationship Specialty Start Date End Date Shirin Beltrán MD [address] [place] [address] PCP - General Family Medicine 09/13/15 documented as of this encounter
--- OUTSIDE RECORDS SUMMARY | 2024-04-10 08:38 | XMS_ITS | Encounter Summary ---
Author Organization [facility] Address [facility] [place] [address] Care Team Providers Care Mold Puller Name Role Phone Shirin Beltrán MD Primary Care Provider [phone] Reason for Visit * Auth/Cert Specialty Diagnoses / Procedures Referred By Azeb t Referred To Contact Diagnoses Rotator Cuff Tear, right shoulder Procedures PRO SHLDR ARTHROSCOP, SURG, W ROTAT CUFF REPR PRO SHLDR ARTHROSCOP, EXTEN DEBRIDE PRO SHLDR ARTHROSCOP, PART ACROMIOPLAS ARTHROSCOPY SHOULDER, ROTATOR CUFF REPAIR (WRVU 15.59) ARTHROSCOPY SHOULDER DEBRIDEMENT EXTENSIVE (WRVU 8.36) ARTHROSCOPY SHOULDER, SUBACROMIAL DECOMPRESSION (WRVU 3) [facility] Referral ID Status Reason Start Date Expiration Date Visits Re quested Visits Authorized [id number] 1 1 Encounter Details Date Type Department Care Team (Late st Contact Info) Description 08/25/2019 7:33 AM EST Anesthesia Event [facility] [place] [address] Lindsey Kumar DO [facility] [place] [address] Gladys Gordon MD [facility] [address] Anesthesia Record Procedure Summary Procedure Name Responsible Anesthesiologist Anesthesia Start Time Anesthesia Stop Time ARTHROSCOPY SHOULDER, ROTATOR CUFF REPAIR [facility] (Right: Shoulder) Lindsey Kumar DO 08/25/19 0733 08/25/19 1018 Events Date Time Event Comment 08/25/2019 0728 0733 Start 0734 AN Verify 0736 An Start Data 0740 An Induction 0742 An Intubation 0744 Anesthesia Ready 0838 Break/Relief In Catalina owen CROTCH BREAKER 0858 Break/Relief Out 1010 an stop data 1018 Recovery or ICU Handoff Kendra ent care was transferred to the destination unit staff after review of the patient's medical history, current anesthetic/surgical status and plan, according to the Provider Handoff Checklist. 1018 Stop Meds Name Total Propofol 200 mg Propofol INF 421.12 mg IV Lidocaine 60 mg Dexamethasone 8 mg Ondansetron 8 mg ePHEDrine 27.5 mg PHENYLephrine 160 mcg PHENYLephrine INF 3,420 mcg BUpivacaine 0.5% 30 mL Lidocaine 2% 5 mL ceFAZolin (ANCEF) 2g in dextrose 5% 100 mL 2 g lactated ringers infusion 700 mL * Agents Name O2 Air N2O Sevoflurane (et) * Blood No blood administrations on file. Lines, Drains, and Airways Type Details Placement Removal Incision 08/25/19; shoulder; 04/17/22 (LDA cleanup utility RA#[id number]); 1715 (LDA cleanup utility RA#[id number]) 08/25/19 0000 by Eloisa Sun RN 04/17/22 1715 by Madhuri Coon (RETIRED) Peripheral IV Line - Single Lumen 08/25/19; 0647; median cubital vein (antecubital fossa), left; [id number] catheter system; 22 gauge, 1 in length; MOISES Diaz; intradermal injection, tolerated well, appears comfortable; 0; 08/25/19; 1112 08/25/19 0647 by Sarahi Suarez RN 08/25/19 1112 by Sarahi Suarez RN Supraglottic Mask Ventilation: Mykel sy (1); LMA Type: iGel; LMA Size: 3; Inserted by: HW; Removal Date: 08/25/19; Removal Time: 1017 08/25/19 0753 by Catalina Willard CRNA 08/25/19 1017 by Friend, Sarahi E, RN documented in this encounter Social History Tobacco Use Types Packs/Day Years [...] PM EST documented as of this encounter OR Notes * Anesthesia Postprocedure Evaluation - Lindsey Kumar DO - 08/25/2019 11:21 AM EST Department of Anesthesiology Post-procedure Note Patient: Abida Das Procedure Summary Date: 08/25/19 Room / Location: [address] Anesthesia Start: 732 Anesthesia Stop: 1017 Procedures: ARTHROSCOPY SHOULDER, ROTATOR CUFF REPAIR (WRVU 15.59) (Right Shoulder) ARTHROSCOPY SHOULDER DEBRIDEMENT EXTENSIVE (WRVU 8.36) (Right Shoulder) ARTHROSCOPY SHOULDER, SUBACROMIAL DECOMPRESSION (WRVU 3) (Right Shoulder) MODIFIER BEACH CHAIR SCHLEIN (Right Shoulder) Diagnosis: Right shoulder pain, unspecified chronicity (Rotator Cuff Tear, right shoulder) Surgeon: Taurus Glover MD Responsible Provider: Lindsey Kumar DO Anesthesia Type: general ASA Status: 2 All Anesthesia Providers: Anesthesiologist: Lindsey Kumar DO CROTCH BREAKER: Catalina Willard CRNA Vitals Value Taken Time BP 154/70 08/25/2019 11:00 AM Temp Pulse 86 08/25/2019 11:00 AM Resp 16 08/25/2019 11:00 AM SpO2 100 % 08/25/2019 11:00 AM Pain Level 0 08/25/2019 11:00 AM Patient Location: PACU/[facility] Level of Consciousness: Awake and Alert Pain Management: Satisfactory Analgesia PONV: None Cardiovascular Status: At Baseline and Hemodynamically Stable Respiratory Status: At Baseline and Room Air Postoperative Fluid Status: Intravascular EUvolemia Possible Anesthetic Complications: NONE apparent at time of evaluation Final Primary Anesthesia Type: General (The anesthetic type performed was the same as planned.) Comments: Did well. No IV opioid requirement. He is satisfied with his care today. Lindsey Kumar DO * Anesthesia Procedure Notes - Lindsey Kumar DO - 08/25/2019 7:29 AM EST Associated Order(s): Anesthesia Block Anesthesia Block Date/Time: 08/25/2019 7:07 AM Performed by: Lindsey Kumar DO Authorized by: Lindsey Kumar DO Start Time: 08/25/2019 7:03 AM End Time: 08/25/2019 7:07 AM Patient Location: Block Room Pre-op The patient was greeted; the risks and benefits of the procedure were reviewed. Indication: Post-op Pain Control Post-op pain management at the request of surgeon. Block Type: Interscalene nerve block Laterality: Right Position: Sitting Prep: Chlorhexidine, patient draped and mask, cap, sterile gloves, hand hygeine Other Prep: Chlorhexidine allowed to dry Skin Anesthetic: Lidocaine 1% dose: 4 [id number]-eznik Other: Pajunk 22 5 cm Ultrasound Guided: YES and in-plane. Ultrasound Image(s) were saved. Ultrasound guidance was used to identify the targeted neuronal structure. Ultrasound was also used to identify needle position and to identify tissue (bone, muscle, and blood vessels) to prevent inadvertent intraneural or intravascular needle placement and injection. The spread of local anesthetic was confirmed with live ultrasound imaging. Single-Shot: Single-shot BUpivacaine 0.5%, 30 mL Lidocaine 2%, 5 mL no complications Attending Physician:: Lindsey Kumar DO Block placed uneventfully after complete IC. He tolerated the procedure well. * Anesthesia Preprocedure Evaluation - Lindsey Kumar DO - 08/25/2019 6:18 AM EST Pre-Anesthesia Evaluation for: Abida Das a 59 y.o. male. Procedure(s): ARTHROSCOPY SHOULDER, ROTATOR CUFF REPAIR (WRVU 15.59) ARTHROSCOPY SHOULDER DEBRIDEMENT EXTENSIVE (WRVU 8.36) ARTHROSCOPY SHOULDER, SUBACROMIAL DECOMPRESSION (WRVU 3) [facility] Patient Active Problem List Diagnosis ??? Pain in right shoulder ??? Raynaud's disease ??? Insomnia ??? Health care maintenance History reviewed. No pertinent past medical history. History reviewed. No pertinent surgical history. Social History Tobacco Use ??? Smoking status: Never Smoker ??? Smokeless tobacco: Never Used Substance Use Topics ??? Alcohol use: Not Currently Comment: occasional Social History Substance and Sexual Activity Drug Use Never Allergies Allergen Reactions ??? Bee Pollen Anaphylaxis Medications: MAR and/or home medications have been reviewed. Physical Exam: There were no vitals filed for this visit. There is no height or weight on file to calculate BMI. Airway Assessment: Mallampati: II TM distance: >3 FB Neck ROM: full Cardiovascular Assessment: Rhythm: regular Pulmonary Assessment: breath sounds clear to auscultation Dental Assessment: - normal exam Misc Assessment: Patient is wearing No contact(s). IV access: Peripheral line Other exam findings: BP Readings from Last 3 Encounters: 08/25/19 : 143/67 08/19/19 : 144/70 06/24/19 : 139/77 Anesthesia Plan: ASA 2 general, with a(n) intravenous induction 59 y/o male for RIGHT shoulder scope and repair No hx of difficulty w anesthesia Denies CP/SOB/Orthopnea/Active LEON ss/Acute illness Appears and feels well today Plan GA/LMA/LISBETH/VA and IV maint/p op pacu care and R IS PNB ss for p op pain control per request Dr. Glover. Antiemetics Pre-Meds: Tylenol and Neurontin I discussed the risks of a nerve block with the patient. These include but are not limited to, nerve injury (as part of post operative nerve dysfunction, which may be multifactorial, related to surgery, tourniquet, positioning, and/or the block), failure of the block to relieve pain, failure of theblock to numb the desired anatomical region, local anesthetic toxicity (though rare, from minor to major), and even infection and bleeding/hematoma. The patient understands the risks of having an insensate extremity (including injuring the limb and in the case of lower extremity blocks, FALLING). Iobtained full informed consent from the patient, and solicited further questions. The patient desires to proceed despite these risks and gives consent. The patient was informed of the risks, benefitsand alternatives of anesthesia. These risks included, but were not limited to, post-operative nausea and/or vomiting, pain, sore throat, dental/lip trauma, and other rare but serious complications such as major organ damage, awareness, severe allergic reactions, position-related nerve injuries, andneed blood transfusions. All questions were sought and answered. Consent was signed and placed in chart. Region - Other Informed Consent: Anesthetic plan and risks discussed with patient and spouse. Plan discussed with CROTCH BREAKER. PAT Clinic Note documented in this encounter Plan of Treatment Not on file documented as of this encounter Procedures Procedure Name Priority Date/Time Associated Diagnosis Comments ANESTHESIA BLOCK Routine 08/25/2019 7:29 AM EST documented in this encounter Results * Anesthesia Block (08/25/2019 7:29 AM EST) Narrative Lindsey Kumar DO - 08/25/2019 7:29 AM EST Lindsey Kumar DO ? 08/25/2019 ??7:30 AM Anesthesia Block Date/Time: 08/25/2019 7:07 AM Performed by: Lindsey Kumar DO Authorized by: Lindsey Kumar DO Start Time: ??08/25/2019 7:03 AM End Time: ??08/25/2019 7:07 AM Patient Location: ??Block Room Pre-op The patient was greeted; the risks and benefits of the procedure were reviewed. ?? Indication: ??Post-op Pain Control Post-op pain management at the request of surgeon. ?? Block Type: ??Interscalene nerve block Laterality: ??Right Position: ??Sitting Prep: ??Chlorhexidine, patient draped and mask, cap, sterile gloves, hand hygeine Other Prep: ??Chlorhexidine allowed to dry Skin Anesthetic: ??Lidocaine 1% dose: ??4 [id number] Other: ??Pajunk 22 5 cm Ultrasound Guided: ??YES and in-plane. ??Ultrasound Image(s) were saved. Ultrasound guidance was used to identify the targeted neuronal structure. Ultrasound was also used to identify needle position and to identify tissue (bone, muscle, and blood vessels) to prevent inadvertent intraneural or intravascular needle placement and injection. The spread of local anesthetic was confirmed with live ultrasound imaging. ?? Single-Shot: ??Single-shot BUpivacaine 0.5%, 30 mL Lidocaine 2%, 5 mL no complications ?? Attending Physician:: ??Lindsey Kumar, Block placed uneventfully after complete IC. He tolerated the procedure well. Lindsey Kumar DO HOISTING ENGINEER [facility] documented in this encounter Visit Diagnoses Not on filedocumented in this encounter Administered Medications Inactive Administered Medications - up to 3 most recent administrations Medication Order MAR Action Action Date Dose Rate Site BUpivacaine (PF) (MARCAINE) 0.5 % (5 mg/mL) injection Starting on Sun08/25/19 at 0707, Until Sun08/25/19 at 0707, Anesthesia Intra-op, Routine Given 08/25/2019 7:07 AM EST 30 mLs ceFAZolin (ANCEF) 2g in dextrose 5% 100 mL 2 g, Intravenous, ONCE, 1 dose, On Sun08/25/19 at 0745, Administer over 30 Minutes, Day of Surgery (Day of Procedure), Indication for (Active or Suspected): Prophylaxis Given 08/25/2019 7:45 AM EST 2 g dexamethasone (DECADRON) injection Intravenous, PRN, Starting on Sun08/25/19 at 0750, Until Sun08/25/19 at 1018, Anesthesia Intra-op, Routine Given 08/25/2019 7:50 AM EST 8 mg ePHEDrine 5 mg/mL multi-dose injection Intravenous, PRN, Starting on Sun08/25/19 at 0752, Until Sun08/25/19 at 1018, Anesthesia Intra-op, Routine Given 08/25/2019 10:04 AM EST 10 mg Given 08/25/2019 8:52 AM EST 2.5 mg Given 08/25/2019 8:05 AM EST 5 mg lidocaine (PF) (XYLOCAINE) 100 mg/5 mL (2 %) injection Intravenous, PRN, Starting on Sun08/25/19 at 0740, Until Sun08/25/19 at 1018, Anesthesia Intra-op, Routine Given 08/25/2019 7:40 AM EST 60 mg lidocaine (PF) (XYLOCAINE) 20 mg/mL (2 %) injection Infiltration, Starting on Sun08/25/19 at 0707, Until Sun08/25/19 at 0707, Anesthesia Intra-op, Routine Given 08/25/2019 7:07 AM EST 5 mLs ondansetron (ZOFRAN) injection Intravenous, PRN, Starting on Sun08/25/19 at 1008, Until Sun08/25/19 at 1018, Anesthesia Intra-op, Routine Given 08/25/2019 10:08 AM EST 8 mg PHENYLephrine (SHINE-SYNEPHRINE) 20 mg in sodium chloride 250 mL (standard ADULT & Pedi greater than 20kg) infusion CONTINUOUS PRN, Starting on Sun08/25/19 at 0801, Until Sun08/25/19 at 1018, Anesthesia Intra-op, Routine Rate/Dose Change 08/25/2019 9:47 AM EST 25 mcg/min 18.8 mL/hr Rate/Dose Change 08/25/2019 9:08 AM EST 30 mcg/min 22.5 mL /hr Rate/Dose Change 08/25/2019 8:43 AM EST 25 mcg/min 18.8 mL /hr PHENYLephrine in NS (PF) (SHINE-SYNEPHRINE) 0.8 mg/10 mL (80 mcg/mL) multi-dose injection Syrg Intravenous, PRN, Starting on Sun08/25/19 at 0747, Until Sun08/25/19 at 1018, Anesthesia Intra-op, Routine Given 08/25/2019 8:17 AM EST 80 mcg Given 08/25/2019 7:47 AM EST 80 mcg propofol (DIPRIVAN) 10 mg/mL bolus injection (Anesthesia) Intravenous, PRN, Starting on Sun08/25/19 at 0740, Until Sun08/25/19 at 1018, Anesthesia Intra-op Given 08/25/2019 7:40 AM EST 200 mg propofol (DIPRIVAN) infusion Intravenous, CONTINUOUS PRN, Starting on Sun08/25/19 at 0747, Until Sun08/25/19 at 1018, Anesthesia Intra-op, Routine New Bag 08/25/2019 7:47 AM EST 50 mcg/kg/min 19.7 mL/hr documented in this encounter Care Teams Mold Puller Relationship Specialty Start Date End Date Shirin Beltrán MD [address] [place] [address] PCP - General Family Medicine 09/13/15 documented as of this encounter
--- OUTSIDE RECORDS SUMMARY | 2024-04-10 08:38 | XMS_ITS | Encounter Summary ---
[place] [address] Care Team Providers Care Cut Off Worker Name Role Phone Shirin Beltrán MD Primary Care Provider [phone] Reason for Referral * Diagnostic Test (Routine) - Closed Specialty Diagnoses / Procedures Referred By Contac t Referred To Contact Radiology Diagnoses Foot drop, right Procedures MRI Lumbar Spine wo Contrast (Generic) Flip Garcia MD [facility] [place] [address] [place] [address] Referral ID Status Reason Start Date Expiration Date V isits Requested Visits Authorized [id number] Closed Specialty Service Requested 09/08/2020 03/06/2021 1 1 Reason for Visit * Reason Comments Follow-up * Consultation (Routine) - Specialty Diagnoses / Procedures Referred By Contac t Referred To Contact Rheumatology Diagnoses Systemic sclerosis, unspecified Shirin Beltrán MD [address] [place] [address] [facility] [address] [place] [address] [facility] Rheumatology [address] [place] [phone] Referral ID Status Reason Start Date Expiration Date V isits Requested Visits Authorized [id number] Consult, [facility] PCP Updated and/or Approved 08/16/2020 02/12/2021 6 6 Encounter Details Date Type Department Care Team (Late st Contact Info) Description 09/07/2020 4:00 PM EST Office Visit Rheumatology at [facility] [place] [address] Flip Garcia MD [facility] [place] [address] Foot drop, right; Limited systemic sclerosis Social History Tobacco Use Types Packs/Day [...] Sign Reading Time Taken Comments Blood Pressure 142/75 09/07/2020 3:41 PM EST Pulse 68 09/07/2020 3:41 PM EST Temperature 36.6 ??C (97.8 ??F) 09/07/2020 3:41 PM ES T Respiratory Rate 16 09/07/2020 3:41 PM EST Oxygen Saturation 99% 09/07/2020 3:41 PM EST Inhaled Oxygen Concentration - - Weight 66.7 kg (147 lb) 09/07/2020 3:41 PM EST w ith shoes Height 172.7 cm (5' 8) 09/07/2020 3:41 PM EST Body Mass Index 22.35 09/07/2020 3:41 PM EST documented in this encounter Patient Instructions * Patient Instructions* Flip Garcia MD - 09/07/2020 4:00 PM EST Continue methotrexate 10 mg weekly on Tuesdays Take folic acid daily Lab tests at [facility] Sep 22 2020 I will run this by Neurology documented in this encounter Progress Notes * Flip Garcia MD - 09/07/2020 4:00 PM EST WINNIE Das is a 60 y.o. 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 This is a scheduled in person follow up appointment. Please refer to my initial note of consultation for details of presentation. To review: ??I think Tylor has a subset of systemic sclerosis. 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 I have been able to access Dr. Kemp's notes and laboratory tests which show a positive antinuclear antibody at a 1: 320 titer.Specific antibody notable for anti-SCL 70 more than 8.0. I recommended changing him from diltiazem to a dihydropyridine class of calcium channel paris, either nifedipine or amlodipine. I think partof his presentation is with an inflammatory arthritis possibly in overlap with limited cutaneous systemic sclerosis though his SCL 70 antibody is more consistent with a diffuse variant systemic sclerosis. ? 01/02/2019 interval events: ?No new symptoms. ?Has not started dihydropyridine class calcium channel paris. ?No new medications. ?No interval health events. 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 ? 02-18-19 Interval events: ?No interval health events. ?Started amlodipine 5 mg daily. ?Had HRCT testing and TTE. ? 05-28-19 Interval events: ?Scheduled follow-up appointment. Did not notice much of a benefit with an increase ofamlodipine to 7.5 mg daily. No hypotensive effects. Stop the medication. ?He believes that he had a therapeutic response to prednisone that was given for a one-week trial 20 mg daily for 3 days and then 10 mg daily for 4 days. ?Main issues today continue to be the right shoulder discomfort mostly laterally and with activity as well as bilateral Achilles tendon insertional discomfort. 08-19-19 Interval events: Has surgery scheduled on Sunday at [facility] with Dr. Glover to reattach supraspinatus tendon and the long head of the biceps tendon to the right shoulder. It is going to be a laparoscopic surgery. Physical therapy will be scheduled at some point between 2 weeks to 6 weeks after his surgery. He will be seeing his primary care provider on for preoperative risk assessment. He has been taking ibuprofen and Naprosyn as needed for discomfort and anti-inflammatory effect. He needs to stop this 8 days before surgery. 11-20-2019 Interval events: Had right shoulder surgery 13 weeks ago 08-25-2019. Surgery was performed by Dr. Glover at [facility]. He had a right rotator cuff repair, extensive shoulder debridement and subacromial decompression. Unable to reattach the long head of the biceps tendon. Had PT after 6 weeks. Passive ROM. PT stopped 3 weeks ago and the plan was to start again in early November. Last appt was 10-27-2019. No interval medical events. No new medications. Both daughters are home, 1 from [facility], and 1 from [place]. 01/23/2020: Tylor continues to improve after his right shoulder surgery. He is going to physical therapy and [place] for the right shoulder. He missed approximately 6 weeks due to the pandemic. He has been playing tennis. He will get some pain at night. His last appointment with Dr. Glover at [facility] section of orthopedics was 12/23/2019. He is reporting some pain and swelling in the MCP joints bilaterally. He has developed a firm nodular subcutaneous whitish lesion on the dorsum of the right hand; he has having bilateral Achilles tendon swelling and pain. He is taking Naprosyn 1 daily. We have previously discussed the possibility of starting methotrexate as a disease modifying anti-rheumatoid drug. He is now ready to consider this. 09-07-2020 Interval events: 08/01/2020 Tylor fell in his kitchen. He was painting and he was on a ladder and fell approximately 3-1/2 feet onto his right gluteal region. He fell on a Sunday. No loss of consciousness. He voiced some concern about losing his balance and wondered about a TIA. He did not however have any other neurologic symptoms preceding the fall. On Sunday he had pain in the gluteal region. No bruising. On Sunday he developed right foot drop. He was seen by his primary care provider on 4 days after the injury. He was sent to physical therapy. He was seen 3 times. He was given home exercises. He played tennis with an orthopedic physician on Sunday 6 days after the injury. The impairment of dorsiflexion was noticed apparently and a soft brace was fashioned. He does not have any back pain. Nohip pain. He does report that he had paresthesias to the lateral aspect of the right foot. He restarted methotrexate August 21. He is taking 10 mg weekly. He is also taking folic acid 1 mg daily. He continues to take ibuprofen 800 mg as needed. Sometimes he will take Naprosyn 500 mg twice daily as needed. He is using trazodone for sleep 50 mg as needed. He is also using prazosin 1 mg forsleep and nightmares. Allergies include: Bee pollen and Bee venom protein (honey bee) Review of Systems: Energy is good. Weight is stable. Sleep continues to be good with trazodone. His activities have needed to be modified due to recent injury. HEENT: No mouth sores. Notes facial rash. No sicca symptoms. 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 Firm nodular swelling in the back of the right hand no rash. No ulcerations. Cardiovascular: No chest pain or palpitations. Excellent cardiovascular conditioning Pulmonary: No dyspnea cough or wheezing. GI: No upper or lower GI symptoms. Musculoskeletal: He has improved range of motion in right shoulder. He is having symmetric small joint inflammatory symptoms in his hands. He thinks that it is better after starting methotrexate. This seems he is also having bilateral Achilles tendinitis as well. Neurologic: Weakness in right foot dorsiflexion. Vascular: Raynaud's as previously described. No digital ulcerations . Current Outpatient Medications Medication Sig Dispense Refill ??? prazosin (Minipress) 1 mg Capsule TAKE 1 CAPSULE BY MOUTH AT NIGHT ??? Ginkgo Biloba 40 mg Tablet Take by mouth. ??? metHOTREXate 2.5 mg Tablet Take 2.5 mg by mouth once a week. 4 tablets by mouth once a week for90 days ??? naproxen (NAPROSYN) 500 mg Tablet Take 500 mg by mouth Twice daily as needed. ??? folic acid (Folvite) 1 mg Tablet ??? acetaminophen (Tylenol) 500 mg Tablet Take 1,000 mg by mouth every 6 hours as needed for Pain. ??? traZODone (DESYREL) 50 mg Tablet Take 50 mg by mouth nightly. ??? ibuprofen (ADVIL;MOTRIN) 800 mg Tablet TAKE ONE TABLET BY MOUTH EVERY DAY NEEDED 1 ??? multivitamin (THERAGRAN) Tablet Take 1 tablet by mouth daily. ??? magnesium citrate 100 mg Tablet Take by mouth. ??? EPINEPHrine 0.3 mg/0.3 mL Auto-Injector Inject 0.3 mg into the muscle once. ??? zolpidem (AMBIEN) 10 mg Tablet Take 10 mg by mouth nightly as needed for Sleep. ??? metHOTREXate 2.5 mg Tablet Take 10 mg by mouth. ??? oxyCODONE (Roxicodone) 5 mg Tablet Take 1 tablet by mouth nightly as needed for Pain. (Patient not taking: Reported on 10/07/2019) 10 tablet 0 ??? atovaquone-proguanil (MALARONE) 250-100 mg Tablet Take 1 tablet by mouth daily. Start 1 day before travel to risk area,daily in risk area and daily for one week after leaving risk area. (Patient not taking: Reported on 06/24/2019) 13 tablet 0 ??? azithromycin (ZITHROMAX) 500 mg Tablet Take 1 tablet by mouth daily. Take once daily for fever with diarrhea. (Patient not taking: Reported on 06/24/2019) 3 tablet 0 No current facility-administered medications for this visit. Allergies Allergen Reactions ??? Bee Pollen Anaphylaxis ??? Bee Venom Protein (Honey Bee) Anaphylaxis Physical Exam: BP 142/75 (BP Location (NBP): Right arm, Patient Position: Sitting, BP Cuff Sizes: Adult (25-34 cm)) Pulse 68 Temp 36.6 ??C (97.8 ??F) (Temporal) Resp 16 Ht 172.7 cm (5' 8) Wt 66.7 kg (147lb) Comment: with shoes SpO2 99% BMI 22.35 kg/m?? General: AAOx3, NAD HEENT: Anicteric sclera. Clear conjunctiva. No facial rash Cardiovascular: Regular rate and rhythm. No murmurs. No extra sounds or rubs. Lungs: Clear to auscultation bilaterally, no rales rubs or wheezes Back: Nontender over the spine and costovertebral angles bilaterally. Neuro: Cranial nerves II through XII grossly intact. Right foot with inability to raise EHL and weakness with dorsiflexion. He can stand on his toes. Sensation to light touch is grossly normal throughout. DTRs are 2+ throughout. I thought the right ankle Achilles reflex was more brisk than the left Skin: (-)ulcers, (-)rash Extremities Shoulders: Mostly free range of motion. Slight apprehension with right shoulder external rotation Elbows:FROM, (-)pain, (-)nodules Wrists: FROM, no swelling, non-tender Hands: No synovitis in MCPs. Symmetric. Mostly involving index and long fingers. Some tapering of fingers Hips: FROM Knees: (-)effusions, non-tender ROM Ankles: FROM, non-tender, no swelling Feet: no MTP compression tenderness Vascular: 2+ pulses in radial arteries, dorsalis pedis and posterior tibial arteries ? Labs: ? 11/03/2015: CRP 1.4. Uric acid 6.5. Bfko-tjgpra-mwzyuwai DNA negative. DISC PAD PLATE FILLER antibodiesnegative. Anti-Chakraborty antibodies negative. Anti-SCL 70 antibody high at more than 8.0. Anti-SSA negative. Anti-SSB negative. Anti- cromolyn antibodies negative. Anti-Eugenia 1 antibody negative. Anti-myeloperoxidase antibody negative. Anti-proteinase 3 antibody negative. C ANCA negative. P. ANCA negative.C3 and C4 normal. Anticardiolipin antibodies negative. Anticentromere antibody negative. Lupus anticoagulant negative. LINDA +1: 320. I do not know the immunofluorescent pattern. ? Diagnostic imaging:. Collect Date: 02/28/2019 Final Pathologic Diagnosis: A. COLON, TRANSVERSE, POLYPS, BIOPSY: - Fragments of tubular adenomas. B. RECTUM, POLYP, BIOPSY: - Fragment of hyperplastic polyp with prominent lymphoid aggregate. Document reviewed and electronically signed by: DANIEL CERNA MD Report Date: 03/04/2019 11:20 Specimen(s) Received: A. Transverse colon polyps x2 B. Rectal polyp Clinical History: Personal hx of tubular adenoma and hyperplastic polyps; colon cancer screening Gross Description: A. Received in formalin labelled with proper patient identification (initials S, B) and transverse colon polyps x2 are three mayo irregular tissues ranging from 0.1 cm in greatest dimension to 0.2 x 0.2 x 0.1 cm. Entirely submitted in A1. B. Received in formalin labelled with proper patient identification (initials S, B) and rectal polyp is a mayo-brown nodular tissue, 0.2 x 0.2 x 0.2 cm. Entirely submitted in B1. Diagnosis / Assessment: 1. Systemic sclerosis (HCC-CMS) 2. Chronic right shoulder pain Successful right shoulder arthroscopic surgery by Dr. Glover at [facility] section of with surgery. He is improving with physical therapy. He willbe following up with Dr. Glover in the coming weeks Assessment: 1. Foot drop, right - MRI Lumbar Spine wo Contrast (Generic); rule out discogenic injury. L5-S1 suspected. 2. 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 He has started methotrexate 10 mg weekly and is taking folic acid 1 mg daily as recommended. He is due for monitoring labs as he has been on this medication for approximately 1 month. I made sure that he knows to take the methotrexate on only 1 dayof the week and to take all of the tablets at the same time initially. He also is to take folic acid daily to reduce possibility of side effects. I have thought that it is possible he has an overlap syndrome with rheumatoid arthritis and systemic sclerosis. Plan: MRI of the lumbar spine CIARAN. If negative will then get nerve conduction studies Continue methotrexate 10 mg weekly. Continue folic acid 1 mg daily. Methotrexate monitoring labs [facility] documented in this encounter Plan of Treatment Not on file documented as of this encounter Results * MRI Lumbar Spine [...] in context of the clinical situation (Reference- Jarvik Et Al, Spine 2001). Findings: (Prevalence in [...] ? Electronically signed by: Ubaldo Isabel MD, [facility] ([phone]), at 09/09/2020 5:20 PM Narrative 09/09/2020 5:20 [...] in context of the clinical situation (Reference- Jesusvik Et Al, [id number]). Findings: (Prevalence in patients without low back pain), discdegeneration (decreased T2 signal, height loss, bulge) (91%), disc T2-signal loss(83%), disc height loss (56%), disc bulge (64%), disc protrusion (32%), annularfissure (38%). Thank you for letting us participate in the care of this patient. Forquestions regarding this report, please contact the number below. Electronically signed by: Ubaldo Isabel MD, [facility]([phone]), at 09/09/2020 5:20 PM Flip Garcia MD IMG MRI ORDERABLES documented in this encounter Visit Diagnoses Diagnosis Foot drop, right Other acquired deformity of ankle and foot Limited systemic sclerosis Systemic sclerosis Foot drop, right Other acquired deformity of ankle and foot documented in this encounter Care Teams Cut Off Worker Relationship Specialty Start Date End Date Shirin Beltrán MD [facility] [address] [place] [address] PCP - General Family Medicine 09/13/15 documented as of this encounter
--- OUTSIDE RECORDS SUMMARY | 2024-04-10 08:38 | XMS_ITS | Encounter Summary ---
[place] [address] Care Team Providers Care Supreme [employer] Justice Name Role Phone Shirin Beltrán MD Primary Care Provider [phone] Reason for Visit * Reason Onset Date Comments Labs Only 09/09/2020 Encounter Details Date Type Department Care Team (Late st Contact Info) Description 09/09/2020 Tele[place] [id number] Umberto Villegas, RN Labs Only Social History Tobacco Use Types Packs/Day Years [...] encounter Miscellaneous Notes * Telephone Encounter - Navya Lobo RN - 09/09/2020 11:29 AM EST Faxed labs to [facility] * Telephone Encounter - Umberto Villegas RN - 09/09/2020 10:08 AM EST ----- Message from Flip Garcia MD sent at 09/08/2020 10:40 PM EST ----- Regarding: Standing labs for [place] Please FAX. Thank you. documented in this encounter Plan of Treatment Not on file documented as of this encounter Visit Diagnoses Not on filedocumented in this encounter Care Teams [address] Justice Relationship Specialty Start Date End Date Shirin Beltrán MD [facility] [address] [place] [address] PCP - General Family Medicine 09/13/15 documented as of this encounter
--- OUTSIDE RECORDS SUMMARY | 2024-04-10 08:38 | XMS_ITS | Encounter Summary ---
Author Organization [facility] Address [facility] [place] [address] Care Team Providers Care Screw Machine Tender Name Role Phone Shirin Beltrán MD Primary Care Provider [phone] Reason for Visit * Auth/Cert Specialty Diagnoses / Procedures Referred By Azeb foster Referred To Contact Diagnoses Rotator Cuff Tear, right shoulder Procedures PRO SHLDR ARTHROSCOP, SURG, W ROTAT CUFF REPR PRO SHLDR ARTHROSCOP, EXTEN DEBRIDE PRO SHLDR ARTHROSCOP, PART ACROMIOPLAS ARTHROSCOPY SHOULDER, ROTATOR CUFF REPAIR (WRVU 15.59) ARTHROSCOPY SHOULDER DEBRIDEMENT EXTENSIVE (WRVU 8.36) ARTHROSCOPY SHOULDER, SUBACROMIAL DECOMPRESSION (WRVU 3) MODIFIER BEACH CHAIR [facility] Referral ID Status Reason Start Date Expiration Date Visits Re quested Visits Authorized [id number] 1 1 Encounter Details Date Type Department Care Team (Late st Contact Info) Description 08/25/2019 7:30 AM EST - 08/25/2019 9:49 AM EST Surgery [place] [address] Saul Glover MD [facility] [place] [address] ARTHROSCOPY SHOULDER, ROTATOR CUFF REPAIR (WRVU 15.59) Social History Tobacco Use Types Packs/Day Years [...] Sign Reading Time Taken Comments Blood Pressure 143/67 08/25/2019 7:15 AM EST Pulse 69 08/25/2019 7:15 AM EST Temperature 36.5 ??C (97.7 ??F) 08/25/2019 6:36 AM ES T Respiratory Rate 16 08/25/2019 7:15 AM EST Oxygen Saturation 98% 08/25/2019 7:15 AM EST Inhaled Oxygen Concentration - - Weight 65.8 kg (145 lb) 08/25/2019 6:26 AM EST Height 172.7 cm (5' 8) 08/25/2019 6:26 AM EST Body Mass Index 22.05 08/25/2019 6:26 AM EST documented in this encounter Discharge Instructions * Discharge Instructions* Friend, Sarahi Villalba RN - 08/25/2019 7:37 AM EST Images from the original note were not included. At 6:30 am you received 1000 mg of acetaminophen- Your next dose should not be taken before 8 hourshave passed. Next dose not before- 2:30 pm You should not take more than a total of 3000 mg of acetaminophen in a 24 hour period. General Anesthesia Discharge Instructions Go home and rest. You may be sleepy for several hours. Take it easy as sudden position changes may cause nausea and/or dizziness. Use caution on stairs. Follow a light to regular diet as tolerated today. If nausea occurs, start with clear liquids, and progress slowly to a regular diet. Do not drive, operate machinery, drink alcoholic beverages or make any legal decisions after havinggeneral anesthesia. The medications given change your reaction time and alter your judgement. IV site -- slight redness is normal, you can use warm compresses. If tenderness and redness increases or foul drainage occurs, please contact your M.D. Patients who have had endotracheal tubes/LMA (tubes used by the anesthesia staff to ensure a safe airway during your operation) may have a sore throat. This is normal and cold liquids or soothing lozenges will help ease this discomfort. Narcotic pain medications can cause constipation, please ask the surgeons office what they recommend for prevention of this. Some non-pharmaceutical means of constipation prevention include increasing intake of fluids, eating more fruits and vegetables as well as fruit juices. If you are uncomfortable and/or unable to urinate within 8 hours of discharge and it is before 5 pm, call your physician. If it is after 5pm go to the closest emergency room or call the hospital machine feed operator at [phone] and ask for physician automotive fuel injection servicer covering for your physician. Questions or problems after 5pm or on a weekend: Call the [facility] machine feed operator at and ask for the physician automotive fuel injection servicer covering for your doctor. Upper Extremity Nerve Block Nerve blocks affect many types of nerves. The affected nerves control movement, pain, and normal sensation. This causes feelings such as: ?? Weakness ?? Numbness ?? Tingling ?? Heaviness ?? A feeling that your arm has fallen asleep. A nerve block can last from about 2 to 48 hours, depending on the medications used. Usually the weakness wears off first, then you will feel a numb or tingly sensation. Finally, the pain may come back. This can happen in any order. If you had a shoulder block, you may have other symptoms such as: 1. Mild shortness of breath 2. A hoarse voice 3. Blurry vision 4. Unequal pupils 5. Drooping of your face on the same side as the nerve block. These are common and expected side effects of this type of nerve block. Symptoms usually go away within 12 hours. If these symptoms do not go away, please call the Anesthesiology Department at . If you have severe or prolonged shortness of breath, please go to the nearest emergency department. If you continue to feel the effects of the nerve block for longer than 48 hours, please call the Anesthesiology department at . Pain Medication If needed, your surgeon will give you a prescription for pain medication. Start taking this medication before the nerve block wears off. Nerve blocks sometimes wear off during the night. It is a goodidea to take your pain medicine as prescribed before going to sleep so you won't wake up with pain.The idea is to have pain medicine in your body before the nerve block wears off. To help prevent nausea, eat something before taking the pain medicine. Once a nerve block starts to wear off, it is usually completely gone within 60 minutes. It is important to have pain medicine in your system before the block wears off completely. Helpful tips to protect the part of your body that is numb. After a nerve block, you cannot feel pain, pressure, or extremes in temperature. Because your arm is numb, it is more at risk for injury. Therefore.... ?? While you are awake, try to change positions of your arm often. This will help you avoid puttingtoo much pressure on the limb for long periods of time. ?? While sleeping, pad the blocked limb with pillows to avoid placing too much pressure on the limb. ?? If you have a cast or a tight dressing, check the color of your fingers every couple of hours. Call your doctor if any look discolored. ?? If you had a shoulder, arm, or hand nerve block, you may go home with a sling. The sling will help to keep your arm in the ideal position. Wear the sling at all times until feeling returns. If youdo not have a sling, watch the position of the blocked arm to make sure it is in a safe location. ?? Ask your family or support people to help with the above hints. QUESTIONS? Please call the Anesthesiology department at with concerns or after hours and ask for the anesthesiologist automotive fuel injection servicer. [facility] Learning About Deep Vein Thrombosis What is deep vein thrombosis? A deep vein thrombosis (DVT) is a blood clot in certain veins of the legs, pelvis, or arms. The clot is usually in the legs. DVT may damage the vein and cause the area to ache, swell, and change color. DVT also can lead to sores. DVT in these veins needs to be treated because the clots can get bigger, break loose, and travel through the bloodstream to the lungs. A blood clot in a lung can cause . Blood clots can form in the veins when you are not active for a long period of time. For example, they can form if you need to stay in bed because of a health problem or must sit for a long time on an airplane or in a car. Surgery or an injury can damage your blood vessels and cause a clot to form.Cancer also can cause DVT. And some people have blood that clots too easily, which is a problem that may run in families. A risk factor is something that makes you more likely to develop a disease. Here are some major risk factors for DVT: You have surgery. You have to stay in bed for more than 3 days (such as in the hospital). Your blood is likely to clot because of an injury, cancer, or inherited condition. Here are some minor risk factors for DVT: You take control hormones. You are . You are in a car or airplane for a long trip. What are the symptoms? Symptoms of DVT may include: Swelling in the affected area. Redness and warmth in the affected area. Pain or tenderness. You may have pain only when you touch the affected area or when you stand or walk. If your doctor thinks you may have DVT, you will probably have an ultrasound test. You may have other tests as well. How can you prevent DVT? Exercise your lower leg muscles to help blood flow in your legs. Point your toes up toward your head so the calves of your legs are stretched, then relax and repeat. This is a good exercise to do when you are sitting for long periods of time. Get out of bed as soon as you can after an illness or surgery. If you need to stay in bed, do the leg exercise noted above every hour when you are awake. Use special stockings called compression stockings. These stockings are tight at the feet with a gradually looser fit on the leg. Many doctors recommend that you wear compression stockings during a journey longer than 8 hours. Take breaks when you are on long trips. Stop the car and walk around. On long airplane flights, walk up and down the aisle hourly, flex and point your feet every 20 minutes while sitting, and drink plenty of water. Take blood-thinning medicines before and after some types of surgery if your doctor recommends it. Blood thinners also may be used if you are likely to develop clots. How is DVT treated? Treatment for DVT usually involves taking blood thinners. These medicines are given through a vein (intravenously, or IV) or as a pill. You will have blood tests often so your doctor can see how wellthe blood thinners are working. Your doctor also may suggest that you prop up or elevate your leg when possible, take walks, and wear compression stockings. These measures may help reduce the pain and swelling that can happen with DVT. Follow-up care is a lott part of your treatment and safety. Be sure to make and go to all appointments, and call your doctor if you are having problems. It's also a good idea to know your test resultsand keep a list of the medicines you take. Where can you learn more? Visit our health information library at [email or web address] rehabilitation [email or web address]/healthinfo. You can alsoview health information on [employer], your personal patient account. Log in or sign up today. Enter X941 in the search box to learn more about Learning About Deep Vein Thrombosis. ?? [id number] [employer]. Care instructions adapted under license by [employer]. This care instruction is for use with your licensed healthcare professional. If you have questions about a medical condition or this instruction, always ask your healthcare professional. [employer] disclaims any warranty or liability for your use of this information. Content Version: 8.9.38163; Last Revised: October 05, 2009 [facility] Shoulder Sling Placement For further reference: https://www.youtube.com/watch?v=Y-7_Fh3-hh8&t=14s [facility] phone number: * Patient Instructions* Sonja Hampton - 08/25/2019 7:24 AM EST Discharge Instructions for Arthroscopic Rotator Cuff Repair Pain Medication Protocol: 1. Oxycodone 5mg: take 1 tablet every 4 - 6 hours for pain as needed, if pain is uncontrolled you may increase to 2 tablets every 4 - 6 hours. Take this medication with a small amount of food to helpprevent nausea. Oxycodone is a short acting narcotic pain medication. 2. Qecw-ucg-ijlhlkq Tylenol (acetaminophen) should be taken in addition to oxycodone. This will allow the oxycodone to work more effectively, and may make it easier to discontinue the oxycodone sooner. Follow the instructions on the Tylenol package for dosage and frequency. Do not exceed 3000mg acetaminophen per day. 3. Aspirin 81mg: take 1 tablet twice daily starting on the day after surgery and continue for 2 weeks. Take with meals to minimize gastrointestinal (stomach) irritation. This is to help prevent a blood clot. Post-operative constipation: ?? Constipation is common after surgery. Drinking plenty of water is important in helping to prevent this. An cllb-ght-wioqxqr stool softener can also help prevent or treat constipation. Colace 100mgtablets can be obtained at most pharmacies and can be taken 2 - 3 times a day. ?? The pain medication may also cause nausea. If you have significant nausea, we can provide a prescription for an anti-nausea medication, please contact our office at [phone], option 3. Cryotherapy: ?? Ice is a highly effective anti-inflammatory in the postoperative period. It helps reduce inflammation and pain. ?? Apply an ice pack to the surgical area for 20-30 minutes every 1-[address] ice directly on the skin as this can cause frostbite; place a towel/rag between the ice and skin. ?? Please use ice as much as possible in the first 72 hours. You may continue to use ice after thisperiodically throughout the day, but it does not have to be as frequent as the first 72 hours.. Dressing: Your dressing will be removed at your first post op visit with the principal trainer. Some leaking of fluid or blood may occur on the dressing and this is expected. Excessive drainage or bleeding is not expected and you should contact our office. Keep the incisions covered with clean dressings until you stop draining. Once you stop draining you do not need a bandage, but you should keep the steri strips in place until your post op appt in 10-14 days. Showering: You may shower after 48 hours, but you should not soak or scrub hard over the area. It is ok for the steri strips to get wet at this point. Sling: At the completion of your shoulder surgery, your arm will be placed in a sling for comfort and immobilization. You should wear the sling full time paramedic except to perform elbow and wrist exercises, change clothes and bathe. Driving: You cannot drive while on narcotic pain medications, and should not drive for the entire time you are in your sling. Activities: Starting on the day after surgery, you should perform elbow and wrist range of motion exercises to avoid stiffness. Perform 10 cycles of full extension to full flexion of your elbow and wrist 4 times a day unless otherwise instructed, you may remove your arm from the sling to perform these exercises. It is okay for your arm to gently hang away from your body. Physical Therapy: Your PT protocol will be given to you at your post op visit. When you start physical therapy will be based on the procedures that were performed. As soon as you get your instructions for PT, please call to schedule a visit to ensure that you can begin in a timely fashion. Future Appointments Date Time Provider Department Center 09/09/2019 11:30 AM Saul Glover MD [facility] [address] [place] [address] documented in this encounter Medications at Time of Discharge Medication Sig Dispensed Refills Start Date End Date multivitamin (THERAGRAN) Tablet Take 1 tablet by mouth daily. traZODone (DESYREL) 50 mg Tablet Take 50 mg by mouth nightly. ibuprofen (ADVIL;MOTRIN) 800 mg Tablet TAKE ONE TABLET BY MOUTH EVERY DAY NEEDED 1 05/27/2019 magnesium citrate 100 mg Tablet Take by mouth. EPINEPHrine 0.3 mg/0.3 mL Auto-Injector Inject 0.3 mg into the muscle once. atovaquone-proguanil (MALARONE) 250-100 mg TabletIndications:Couns eling about travel Take 1 tablet by mouth daily. Start 1 day before travel to risk area,daily in risk area and daily for one week after leaving risk area. 13 tablet 09/03/2017 azithromycin (ZITHROMAX) 500 mg TabletIndications:Couns eling about travel Take 1 tablet by mouth daily. Take once daily for fever with diarrhea. 3 tablet 09/03/2017 zolpidem (AMBIEN) 10 mg Tablet Take 10 mg by mouth nightly as needed for Sleep. aspirin EC (ENTERIC COATED ASPIRIN) 81 mg Tablet, Delayed Release (E.C.) Take 1 tablet by mouth 2 times daily for 14 days. 28 tablet 08/25/2019 09/08/2019 oxyCODONE (ROXICODONE) 5 mg Tablet Take 1-2 tablets by mouth every 4 hours as needed for Pain. 30 tablet 08/25/2019 08/28/2019 naproxen sodium (ALEVE) 220 mg Capsule Take 500 mg by mouth as needed. 01/27/2020 documented as of this encounter Progress Notes * Sarahi Suarez RN - 08/25/2019 11:10 AM EST Discharge instructions and medications reviewed with patient and , Rosalee. All questions answered and written copy sent home with patient. Patient ambulated to car for discharge accompanied by OSCstaff member. Medication schedule started and reviewed with Rosalee. verbalized an understandingof medication schedule and discharge orders. * Sarahi Suarez RN - 08/25/2019 7:03 AM EST 0703 Block started after pre sedation time out 0707 Block completed, tolerated well documented in this encounter H&P Notes * Brock Bucio MD - 08/25/2019 7:23 AM EST 24-HOUR UPDATE Abida Das's history and physical exam have been reviewed and completed. There has been no interval change from that of the pre-operative history and physical exam done within the last 30 days. Heart and lung exam deferred to anesthesia. Brock Bucio MD PGY-3 P. [id number] 08/25/19 7:23 AM documented in this encounter Miscellaneous Notes * Op Note - Saul Glover MD - 08/25/2019 10:00 AM EST [facility] Operative Note Patient Name: Abida Das : [id number] MR#: [id number] Case Date: 08/25/2019 Surgeon: Surgeon(s) and Role: * Saul Glover MD - Primary * Brock Bucio MD - Resident Preoperative diagnosis: Rotator Cuff Tear, right shoulder Postoperative diagnosis: Rotator Cuff Tear, right shoulder Procedure(s) (LRB): ARTHROSCOPY SHOULDER, ROTATOR CUFF REPAIR (WRVU 15.59) (Right) ARTHROSCOPY SHOULDER DEBRIDEMENT EXTENSIVE (WRVU 8.36) (Right) ARTHROSCOPY SHOULDER, SUBACROMIAL DECOMPRESSION (WRVU 3) (Right) MODIFIER BEACH CHAIR SCHLEIN (Right) Anesthesia: General EBL: 5cc Implants Used: 3 Arthrex 4.5 mm PEEK Corkscrew suture anchors (2 medial row, anterior single row) 3 Arthrex 4.75 mm PEEK Swivel-Lock suture anchors (2 lateral row, 1 subscap) Indications: 59 year old male with acute on chronic right shoulder pain. Active in tennis. After discussion of risks and benefits, the patient elected to proceed with the above noted surgical interventions. Pre-operative Evaluation: The patient was greeted in the preoperative holding area where the right shoulder was confirmed to be the correct site of surgery with both the patient and the informed consent. The operative shoulder was then marked with a green [place]. The plan was reviewed with the patient and all questions wereanswered. The patient was then taken to the operating room. After anesthesia was induced, the patient was placed in the beach chair position with all bony prominences well padded. The head and neck were supported in a neutral position. A time-out was called with proper procedure, site and consent confirmed. Antibiotics were administered prior to incision. Bilateral SCDs were placed on the lower ex tremities. Examination under anesthesia: Range of motion: Forward elevation: 150 External rotation at the side: 45 Instability examination: stable Description of Operation: The shoulder was prepped and draped in a standard sterile fashion, utilizing chlorhexidine scrub and Chloraprep. Chloraprep was allowed to dry and then two sterile U-drapes and a large extremity drape were applied. Spider arm roa was appropriately draped. The glenohumeral joint was insufflated 30cc of saline and the subacromial bursa with 20cc. A standard posterior portal was established and adiagnostic arthroscopy was performed. Under direct visualization, an anterior working portal was created just lateral to the coracoid process, first localizing with a spinal needle and then placing a5.0 cannula through the rotator interval. Systematic arthroscopic exam was then performed with findings were as noted below: Arthroscopic findings: Articular surfaces: Humeral head: grade 1 chondral changes Glenoid: grade 1 chondral changes Biceps and labrum: Long head biceps tendon: stump w/fraying Biceps anchor: frayed Anterior/inferior labrum: stable Posterior labrum: stable Axillary pouch: No loose bodies Rotator cuff (articular side): Subscapularis tendon: High grade articular sided tear ~55% Supraspinatus tendon: Torn Infraspinatus tendon: in-tact Rotator interval: synovitic Subacromial Space: Subacromial space: moderate bursitis Anterior acromion: Type II/III acromion Bursal side of rotator cuff: Torn Tear Description: Full thickness rotator cuff tear including the supraspinatus. It measured approximately 1.5 cm anterior to posterior with retraction just past the articular margin. It was a crecentshaped tear. Description continued: Glenohumeral debridement: Based on these findings, we began with an extensive debridement of glenohumeral joint with the use of an arthroscopic shaver and Arthrocare wand. This included areas of synovitis, chondral irregularity, frayed portions of the glenoid labrum and rotator cuff. The stump of the long head of the biceps debrided with a Shaver and Arthrocare wand. Subscapularis repair: Remaining in the intra-articular space I began with the subscapularis repair. 270?? dissection was performed around the subscapularis. An additional anterolateral portal was established. The exposed lesser tuberosity was debrided down to punctate bleeding bone. Scorpion suture passer was used to pass 1 mattress suture and one simple suture through the tendon stump. The sutures were then loaded into a single 4.75 swivel lock placed on the lateral aspect of the foot. This achieved anatomic repairof the subscapularis. Supraspinatus repair: The scope was then inserted into the subacromial space from the posterior portal. It was positioned just posterior to the CA ligament which could be visualized from this position. A spinal needle was inserted from a point adjacent to the anterior 1/3rd of the acromion ~ 1cm lateral. It was confirmed to be at the appropriate angle and a small incision was made to create the kerry-lateral portal. Using a combination of cautery and shaver, a thorough bursectomy was performed. This included anterior, lateral, and posterior gutters. The coracoacromial ligament was identified. It was subperiosteally elevated off of the acromion. The anterior acromial spur was noted . The bursal side of the rotator cuff was inspected from both the posterior and lateral viewing portal. The tear was visualized and is described above. There was excellent mobility. The tear was repaired back to a bed of punctate bleeding bone prepared by a high-speed shaver. The repair construct included two medial row anchors. Each of these anchors contained #2 FiberWire sutures passed through the rotator cuff in horizontal mattress configuration. These were tied down snugly with a sliding/locking [place] knot backed up with 3 half hitches. Thelateral aspect of the cuff was then repaired to the footprint using two lateral row swivel lock anchors. Repair was visualized and was solid. There was small area of redundant anterior cuff - a single anterior Corckscrew was added to the construct with a single mattress stitch passed and tied. Acromioplasty: Using a high-speed bur from the lateral portal, the anterior acromioplasty was performed with care taken just to remove the anterior spur and no excessive bone. The camera was then switched to the anterolateral portal and the acromioplasty was completed from the posterior portal. It was confirmed from both the posterior and lateral viewing portal at the acromioplasty was smooth. Subacromial space was then irrigated and instruments removed. Portals were closed with buried 3-0 Monocryl suture. A sterile dressing was applied and the arm wasgently placed into a shoulder immobilizer and cryo-cuff. All counts were correct at the completion of the case. Postoperative Plan: Shoulder immobilizer at all times except for physical therapy for the next 6 weeks. Physical therapy per the standard [facility] MASSIVE arthroscopic rotator cuff repair therapy protocol. Specific ROM restrictions will be added to the protocol. Attestation: Case Date: 08/25/2019 I was present and I participated during the entire procedure (does not need to include opening and closing). SAUL GLOVER MD 08/25/2019 documented in this encounter Plan of Treatment Not on file documented as of this encounter Procedures Procedure Name Priority Date/Time Associated Diagnosis Comments MODIFIER JEFFERY CHAIR BERG 08/25/2019 7:33 AM EST Right shoulder pain, unspecified chronicity Shldr Arthroscop, Part Acromioplas ([id number]) 08/25/2019 7:33 AM EST Right shoulder pain, unspecified chronicity Shldr Arthroscop, Exten Debride ([id number]) 08/25/2019 7:33 AM EST Right shoulder pain, unspecified chronicity Shldr Arthroscop, Surg, W/Rotat Cuff Repr ([id number]) 08/25/2019 7:33 AM EST Right shoulder pain, unspecified chronicity ARTHROSCOPY SHOULDER,SUBACROMIAL DECOMPRESSION Routine 08/25/2019 6:15 AM EST Right shoulder pain, unspecified chronicity ARTHROSCOPY SHOULDER DEBRIDEMENT EXTENSIVE Routine 08/25/2019 6:15 AM EST Right shoulder pain, unspecified chronicity documented in this encounter Visit Diagnoses Diagnosis Right shoulder pain, unspecified chronicity Right shoulder pain, unspecified chronicity documented in this encounter Administered Medications Inactive Administered Medications - up to 3 most recent administrations Medication Order MAR Action Action Date Dose Rate Site acetaminophen (Tylenol) tablet 1,000 mg 1,000 mg, Oral, ONCE, 1 dose, On Sun08/25/19 at 0645, Maximum dose of acetaminophen is 4000 mg from all sources in 24 hours., Routine Given 08/25/2019 6:31 AM EST 1,000 mg EPINEPHrine (ADRENALIN) injection ONCE PRN, Starting on Sun08/25/19 at 0808, Until Sun08/25/19 at 1341, Intra-Operative (Intra-Procedure), Routine Given 08/25/2019 8:08 AM EST 1 mg 19- Surgical Site gabapentin (Neurontin) capsule 600 mg 600 mg, Oral, ONCE, 1 dose, On Sun08/25/19 at 0645, Routine Given 08/25/2019 6:31 AM EST 600 mg lactated ringers infusion 1,000 mL, at 100 mL/hr, Intravenous, CONTINUOUS, Starting on Sun08/25/19 at 0645, Until Sun08/25/19 at 1140, Day of Surgery (Day of Procedure) New Bag 08/25/2019 6:50 AM EST 1,000 mLs 100 mL/hr midazolam (PF) (VERSED) injection 1 mg 1 mg, Intravenous, EVERY 5 MIN PRN, Starting on Sun08/25/19 at 0617, Until Sun08/25/19 at 1140, Sleep, or prior to injection of local anesthetic, Hold for delirium/agitation. (Maximum dose 5 mg)., Day of Surgery (Day of Procedure), Routine Given 08/25/2019 7:01 AM EST 2 mg documented in this encounter Active and Recently Administered Medications Times are shown in EST. Scheduled Medication Order 08/23/2019 08/24/2019 08/25/2019 acetaminophen (Tylenol) tablet 1,000 mg (COMPLETED) 1,000 mg, Oral, ONCE, 1 dose, On Sun08/25/19 at 0645, Maximum dose of acetaminophen is 4000 mg from all sources in 24 hours., Routine 06 (Given - Provid er: Sarahi Suarez RN) ceFAZolin (ANCEF) 2g in dextrose 5% 100 mL (COMPLETED) 2 g, Intravenous, ONCE, 1 dose, On Sun08/25/19 at 0745, Administer over 30 Minutes, Day of Surgery (Day of Procedure), Indication for (Active or Suspected): Prophylaxis 0745 (Given - Provid er: Catalina Willard CRNA) gabapentin (Neurontin) capsule 600 mg (COMPLETED) 600 mg, Oral, ONCE, 1 dose, On Sun08/25/19 at 0645, Routine 0631 (Given - Provid er: Sarahi Suarez RN) Continuous Medication Order 08/23/2019 08/24/2019 08/25/2019 lactated ringers infusion (CANCELED) 1,000 mL, at 100 mL/hr, Intravenous, CONTINUOUS, Starting on Sun08/25/19 at 0645, Until Sun08/25/19 at 1140, Day of Surgery (Day of Procedure) 0650 (New Bag - Prov ider: Sarahi Suarez RN)0755 (Anesthesia Volume Adjustment - Provider: Catalina Willard CRNA)0940 (Anesthesia Volume Adjustment - Provider: Catalina Willard CRNA)1005 (Anesthesia Volume Adjustment - Provider: Catalina Willard CRNA) PRN Medication Order 08/23/2019 08/24/2019 08/25/2019 EPINEPHrine (ADRENALIN) injection (CANCELED) ONCE PRN, Starting on Sun08/25/19 at 0808, Until Sun08/25/19 at 1341, Intra-Operative (Intra-Procedure), Routine 0808 (Given - Provid er: Saul Glover MD - Comment: 1mg added to every 3 L Bag of NS irrigation) midazolam (PF) (VERSED) injection 1 mg (CANCELED) 1 mg, Intravenous, EVERY 5 MIN PRN, Starting on Sun08/25/19 at 0617, Until Sun08/25/19 at 1140, Sleep, or prior to injection of local anesthetic, Hold for delirium/agitation. (Maximum dose 5 mg)., Day of Surgery (Day of Procedure), Routine 0701 (Given - Provid er: Sarahi Suarez RN) documented in this encounter Care Teams Screw Machine Tender Relationship Specialty Start Date End Date Shirin Beltrán MD [facility] [address] [place] [address] PCP - General Family Medicine 09/13/15 documented as of this encounter
--- OUTSIDE RECORDS SUMMARY | 2024-04-10 08:38 | XMS_ITS | Encounter Summary ---
Author Organization [facility] Address [facility] [place] [address] Care Team Providers Care Car Greaser Name Role Phone Shirin Beltrán MD Primary Care Provider [phone] Reason for Visit * Reason Comments Follow-up R Shoulder Scope, DO S 08/25/19 Encounter Details Date Type Department Care Team (Late st Contact Info) Description 12/23/2019 11:30 AM EDT [place] [address] Taurus Glover MD [facility] [place] [address] Status post right rotator cuff repair, 08/25/2019, [...] Sign Reading Time Taken Comments Blood Pressure 144/72 12/23/2019 11:00 AM EDT Pulse 78 12/23/2019 11:00 AM EDT Temperature - - Respiratory Rate - - Oxygen Saturation - - Inhaled Oxygen Concentration - - Weight 63.5 kg (140 lb) 12/23/2019 11:00 AM EDT Height 172.7 cm (5' 8) 12/23/2019 11:00 AM EDT Body Mass Index 21.29 12/23/2019 11:00 AM EDT documented in this encounter Progress Notes * Christie MercedesNEDRA - 12/23/2019 11:30 AM EDT Case Date: 08/25/2019 Surgeon: Surgeon(s) and Role: * Taurus Glover MD - Primary * Brock Bucio MD - Resident Preoperative diagnosis: Rotator Cuff Tear, right shoulder Postoperative diagnosis: Rotator Cuff Tear, right shoulder Procedure(s) (LRB): ARTHROSCOPY SHOULDER, ROTATOR CUFF REPAIR (WRVU 15.59) (Right) ARTHROSCOPY SHOULDER DEBRIDEMENT EXTENSIVE (WRVU 8.36) (Right) ARTHROSCOPY SHOULDER, SUBACROMIAL DECOMPRESSION (WRVU 3) (Right) MODIFIER BEACH CHAIR SCHLEIN (Right) Anesthesia: General ?? Implants Used: 3 Arthrex 4.5 mm PEEK Corkscrew suture anchors (2 medial row, anterior single row) 3 Arthrex 4.75 mm PEEK Swivel-Lock suture anchors HPI: Abida Das is a 59 y.o. male who presents the clinic approximately 4 months status postarthroscopic rotator cuff repair of the right shoulder. He reports he is struggling post op with pain and motion. His PT has been curtailed due to Covid 19 and he has been trying to keep up with HEP,but has difficulty. No new injury. Nighttime is painful. Has been taking NSAIDs prn. Reports he has been otherwise well without fever, chills, night sweats, shortness of breath, chest pain, nausea, vomiting, diarrhea, incisional issues. Exam: Blood pressure 144/72, pulse 78, height 172.7 cm (5' 8), weight 63.5 kg (140 lb). Alert and oriented x4. No apparent distress. Examination of the right shoulder upper extremity reveals well healed incisions. Right shoulder ROM includes 160 deg FF and abduction, 55 deg ER and IR tobeltline. RUE strength 4/5 FF and abduction, 5/5 IR and ER. Right radial pulse 2+ to palpation. Right upper extremity sensations intact light touch. Assessment/Plan: 59-year-old male approximately 4 months status post arthroscopic rotator cuff repair of a massive tear. Struggling with motion and pain post-operatively secondary to under rehabilitation and emerging capsulitis. Recommended he meet with our on site PT today for assistance with HEP and continue to meet with him via telehealth until his clinic in [place], [place] reope. I suspect his recovery will improve with more consistent help from PT. Have also recommended he take 500 mg Naprosyn BID for 1-2 weeks and f/u in 4 weeks for ROM check. He agrees. documented in this encounter Plan of Treatment Not on file documented as of this encounter Visit Diagnoses Diagnosis Status post right rotator cuff repair, 08/25/2019, Dr. Glover. Massive repair. documented in this encounter Care Teams Car Greaser Relationship Specialty Start Date End Date Shirin Beltrán MD [address] [place] [address] PCP - General Family Medicine 09/13/15 documented as of this encounter
--- OUTSIDE RECORDS SUMMARY | 2024-04-10 08:38 | XMS_ITS | Encounter Summary ---
Author Organization Count Includes [facility] Address [facility] [place] [address] Care Team Providers Care Machinery Repair Maintenance Supervisor Name Role Phone Shirin Beltrán MD Primary Care Provider [phone] Reason for Visit * Auth/Cert Specialty Diagnoses / Procedures Referred By Azeb foster Referred To Contact Diagnoses Rotator Cuff Tear, right shoulder Procedures PRO SHLDR ARTHROSCOP, SURG, W ROTAT CUFF REPR PRO SHLDR ARTHROSCOP, EXTEN DEBRIDE PRO SHLDR ARTHROSCOP, PART ACROMIOPLAS ARTHROSCOPY SHOULDER, ROTATOR CUFF REPAIR (WRVU 15.59) ARTHROSCOPY SHOULDER DEBRIDEMENT EXTENSIVE (WRVU 8.36) ARTHROSCOPY SHOULDER, SUBACROMIAL DECOMPRESSION (WRVU 3) [facility]erral ID Status Reason Start Date Expiration Date Visits Re quested Visits Authorized [id number] 1 1 Encounter Details Date Type Department Care Team (Latest Contact Info) Description 08/25/2019 6:13 AM EST - 08/25/2019 11:38 AM EST Hospital Encounter [place] [address] [facility] [address] [place] [address] Right shoulder pain, unspecified chronicity Discharge Disposition: Home Social History Tobacco Use [...] Sign Reading Time Taken Comments Blood Pressure 154/70 08/25/2019 11:00 AM EST Pulse 86 08/25/2019 11:00 AM EST Temperature 36.4 ??C (97.5 ??F) 08/25/2019 10:[address] Respiratory Rate 16 08/25/2019 11:00 AM EST Oxygen Saturation 100% 08/25/2019 11:00 AM EST Inhaled Oxygen Concentration - - [...] closest emergency room or call the hospital panel machine operator at [phone] and ask for physician division roadmaster covering for your physician. Questions or problems after 5pm or on a weekend: Call the [facility] panel machine operator at and ask for the physician division roadmaster covering for your doctor. Upper Extremity Nerve [...] after hours and ask for the anesthesiologist division roadmaster. [facility] Learning About Deep Vein Thrombosis What [...] more? Visit our health information library at [email or web address] [facility] peres [email or web address]. You can alsoview health information on [employer], your personal patient account. Log in or sign up today. Enter X941 in the search box to learn more about Learning About Deep Vein Thrombosis. ?? [phone] [employer]. Care instructions adapted under license by ScoreStreamst. [facility] hospitalBiomeasureBettie. This care instruction is for use with your licensed healthcare professional. If you have questions about a medical condition or this instruction, always ask your healthcare professional. [employer] disclaims any warranty or liability for your use of this information. Content Version: 8.9.71474; Last Revised: October 05, 2009 [facility] Shoulder [...] a short acting narcotic pain medication. 2. Htie-ixe-weuinix Tylenol (acetaminophen) should be taken in addition [...] important in helping to prevent this. An reqt-yab-xtaeksu stool softener can also help prevent or treat constipation. Colace 100mgtablets can be obtained at most pharmacies and can be taken 2 - 3 times a day. ?? The pain medication may also cause nausea. If you have significant nausea, we can provide a prescription for an anti-nausea medication, please contact our office at [phone], option 3. Cryotherapy: ?? Ice is a [...] your first post op visit with the associate trainer. Some leaking of fluid or blood [...] and immobilization. You should wear the sling director of alumni relations except to perform elbow and wrist exercises, [...] Center 09/09/2019 11:30 AM Saul Glover MD [facility] [address] [place] [address] documented in this encounter Medications at Time [...] Glover MD - 08/25/2019 10:00 AM EST [facility] [place] Patient Name: Abida Das : [id number] MR#: [id number] Case Date: 08/25/2019 Surgeon: Surgeon(s) and Role: [...] shoulder was then marked with a green qawalangin. The plan was reviewed with the patient [...] were tied down snugly with a sliding/locking [place] knot backed up with 3 half hitches. [...] 6 weeks. Physical therapy per the standard [facility] MASSIVE arthroscopic rotator cuff repair therapy protocol. [...] Procedure Name Priority Date/Time Associated Diagnosis Comments NIGEL GIL CHAIR DE LUNATj 08/25/2019 7:33 AM EST Right shoulder pain, unspecified chronicity Shldr Arthroscop, Part Acromioplas ([id number]) 08/25/2019 7:33 AM EST Right shoulder pain, unspecified chronicity Shldr Arthroscop, Exten Debride ([id number]) 08/25/2019 7:33 AM EST Right shoulder pain, unspecified chronicity Shldr Arthroscop, Surg, W/Rotat Cuff Repr ([id number]) 08/25/2019 7:33 AM EST Right shoulder pain, [...] 1,000 mg, Oral, ONCE, 1 dose, On 08/25/19 at 0645, Maximum dose of acetaminophen is 4000 mg from all sources in 24 hours., Routine Given 08/25/2019 6:31 AM EST 1,000 mg gabapentin (Neurontin) capsule 600 mg 600 mg, Oral, ONCE, 1 dose, On 08/25/19 at 0645, Routine Given 08/25/2019 6:31 AM EST 600 mg lactated ringers infusion 1,000 mL, at 100 mL/hr, Intravenous, CONTINUOUS, Starting on 08/25/19 at 0645, Until Sun08/25/19 at 1140, Day of Surgery (Day of Procedure) New Bag 08/25/2019 6:50 AM EST 1,000 mLs 100 mL/hr documented in this encounter Active and Recently Administered Medications Times are shown in EST. Scheduled Medication Order 08/23/2019 08/24/2019 08/25/2019 acetaminophen (Tylenol) tablet 1,000 mg (COMPLETED) 1,000 mg, Oral, ONCE, 1 dose, On Sun08/25/19 at 0645, Maximum dose of acetaminophen is 4000 mg from all sources in 24 hours., Routine 0631 (Given - Provid er: Sarahi [...] Day of Surgery (Day of Procedure), Routine 07 (Given - Provid er: Sarahi Suarez RN) documented in this encounter Care Teams Machinery Repair Maintenance Supervisor Relationship Specialty Start Date End Date Shirin Beltrán MD [address] [place] [address] PCP - General Family Medicine 09/13/15 documented as of this encounter
--- OUTSIDE RECORDS SUMMARY | 2024-04-10 08:38 | XMS_ITS | Encounter Summary ---
Author Organization [facility] Address [facility] [place] [address] Care Team Providers Care Belt Sander Name Role Phone Shirin Beltrán MD Primary Care Provider [phone] Encounter Details Date Type Department Care Team (Latest Contact Info) Description 06/24/2019 11:52 AM EST - 06/24/2019 11:59 PM EST Hospital Encounter XRay at [address] [place] [address] Taurus Glover MD [facility] [place] [address] Labral tear of shoulder, right, initial encounter Discharge Disposition: Home Social History Tobacco Use [...] Tablet Take 1 tablet by mouth daily. ibuprofen (ADVIL;MOTRIN) 800 mg Tablet TAKE ONE [...] by mouth nightly as needed for Sleep. naproxen sodium (ALEVE) 220 mg Capsule Take 500 mg by mouth as needed. 01/27/2020 documented as of this encounter Plan of Treatment Not on file documented as of this encounter Procedures Procedure Name Priority Date/Time Associated Diagnosis Comments XR SHOULDER RIGHT Routine 06/24/2019 12: 16 PM EST Labral tear of shoulder, right, initial encounter documented in this encounter Results * XR Shoulder Right (Generic) (06/24/2019 12:16 PM EST) Anatomical Region Laterality Modality Shoulder Right Digital Radiogra phy Impressions 06/24/2019 2:14 PM EST Mild osteoarthritis of the acromioclavicular joint. Thank you for letting us participate in the care of this patient. For questions regarding this report, please contact the number below. ? Narrative 06/24/2019 2:14 PM EST EXAMINATION: XR SHOULDER RIGHT (GENERIC) CLINICAL HISTORY: Labral tear of shoulder, right, initial encounter TECHNIQUE: AP, Grashey, scapular Y and axillary of the right shoulder COMPARISON: None FINDINGS: There is no fracture or dislocation. The glenohumeral joint is well aligned. There is mild narrowing of the acromioclavicular joint. Small marginal osteophytes are present in the acromioclavicular joint. Procedure Note Yoandy Alfred MD - 06/24/2019 EXAMINATION: XR SHOULDER RIGHT (GENERIC) CLINICAL HISTORY: Labral tear of shoulder, right, initial encounter TECHNIQUE: AP, Grashey, scapular Y and axillary of the right shoulder COMPARISON: None FINDINGS: There is no fracture or dislocation. The glenohumeral joint is well aligned. There is mild narrowing of the acromioclavicular joint. Small marginal osteophytes are present in the acromioclavicular joint. IMPRESSION Mild osteoarthritis of the acromioclavicular joint. Thank you for letting us participate in the care of this patient. Forquestions regarding this report, please contact the number below. Taurus Glover MD IMG DX ORDERABLES documented in this encounter Visit Diagnoses Diagnosis Labral tear of shoulder, right, initial encounter documented in this encounter Care Teams Belt Sander Relationship Specialty Start Date End Date Shirin Beltrán MD [address] [place] [address] PCP - General Family Medicine 09/13/15 documented as of this encounter
--- OUTSIDE RECORDS SUMMARY | 2024-04-10 08:38 | XMS_ITS | Encounter Summary ---
Author Organization [facility] Address [facility] [place] [address] Care Team Providers Care Ocular Care Aide Name Role Phone Shirin Beltrán MD Primary Care Provider [phone] Reason for Visit * Reason Comments Pre-op Exam Case Req 08/25/19 R David echevarrialdgigi Scope Encounter Details Date Type Department Care Team (Late st Contact Info) Description 08/19/2019 10:30 AM EST Office [place] [address] [facility] [place] [address] Right shoulder pain, unspecified chronicity Social History [...] Sign Reading Time Taken Comments Blood Pressure 144/70 08/19/2019 10:06 AM EST Pulse 84 08/19/2019 10:06 AM EST Temperature - - Respiratory Rate - - Oxygen Saturation - - Inhaled Oxygen Concentration - - Weight 65.8 kg (145 lb 1 oz) 08/19/2019 10:06 AM EST last reported Height 172.7 cm (5' 7.99) 08/19/2019 1 0:06 AM EST last reported Body Mass Index 22.06 08/19/2019 10:06 AM EST documented in this encounter Progress Notes * Taurus Glover MD - 08/19/2019 10:30 AM EST Pre-op for right shoulder rotator cuff repair. We reviewed the anatomy and role of the rotator cuff and the issues around rotator cuff tears and repair. We reviewed operative and non-operative management options. We also reviewed the operative process of rotator cuff repair along with expected down time and importance of compliance with rehabili tation outline. The goals, risks and benefits of rotator cuff repair were outlined in detail. Risks, including, butnot limited to infection, blood clots, stiffness, continued pain and weakness, re-tear and anesthesia related complications were reviewed. Informed consent was obtained. Plan for biceps tenodesis. documented in this encounter Plan of Treatment Not on file documented as of this encounter Visit Diagnoses Diagnosis Right shoulder pain, unspecified chronicity documented in this encounter Care Teams Ocular Care Aide Relationship Specialty Start Date End Date Shirin Beltrán MD [address] [place] [address] PCP - General Family Medicine 09/13/15 documented as of this encounter
--- OUTSIDE RECORDS SUMMARY | 2024-04-10 08:38 | XMS_ITS | Encounter Summary ---
Author Organization [facility] Address [facility] [place] [address] Care Team Providers Care Boxing And Pressing Supervisor Name Role Phone Shirin Beltrán MD Primary Care Provider [phone] Encounter Details Date Type Department Care Team (Late st Contact Info) Description 09/21/2016 Ancillary Procedure [place] [address] Williams Maldonado MD [facility] DR [place]OPAEDIC [place] [address] Social History Tobacco Use Types Packs/Day Years Used Date Smoking Tobacco: Never Sex and Gender Information Value Date Recorded Sex Assigned at Male 10/19/2020 2:01 PM EST Gender Identity Male 10/19/2020 2:02 PM EST Sexual Orientation Straight 10/19/2020 2: 01 PM EST documented as of this encounter Plan of Treatment Not on file documented as of this encounter Procedures Procedure Name Priority Date/Time Associated Diagnosis Comments FILM LIBRARY STORAGE ONLY DX SHOULDER Routine 09/21/2016 12:00 AM EST documented in this encounter Results * Film Library- Storage Only DX Shoulder (09/21/2016 12:00 AM EST) Narrative [facility] - 06/20/2019 7:12 PM EDT This exam is auto-finalizing. It's purpose is for storage only. Williams Maldonado MD [facility] [place] LIBRARY ORD ERABLES Performing Organization Address City/State/[facility] Co de Phone Number [facility] [place], [place] documented in this encounter Visit Diagnoses Not on filedocumented in this encounter Care Teams Boxing And Pressing Supervisor Relationship Specialty Start Date End Date Shirin Beltrán MD [address] [place] [address] PCP - General Family Medicine 09/13/15 documented as of this encounter
--- OUTSIDE RECORDS SUMMARY | 2024-04-10 08:38 | XMS_ITS | Encounter Summary ---
Author Organization [facility] Address [facility] [place] [address] Care Team Providers Care Childhood Development Teacher Name Role Phone Shirin Beltrán MD Primary Care Provider [phone] Encounter Details Date Type Department Care Team (Late st Contact Info) Description 08/21/2019 [place] [address] Taurus Glover MD [facility] [place] [address] Tear of right rotator cuff, unspecified tear extent, unspecified whether traumatic Social History Tobacco Use Types Packs/Day Years [...] as of this encounter Visit Diagnoses Diagnosis Tear of right rotator cuff, unspecified tear extent, unspecified whether traumatic documented in this encounter Care Teams Childhood Development Teacher Relationship Specialty Start Date End Date Shirin Beltrán MD [facility] [address] [place], [place] [address] PCP - General Family Medicine 09/13/15 documented as of this encounter
--- OUTSIDE RECORDS SUMMARY | 2024-04-10 08:38 | XMS_ITS | Encounter Summary ---
Author Organization [facility] Address [facility] [place] [address] Care Team Providers Care Material Control Analyst Name Role Phone Shirin Beltrán MD Primary Care Provider [phone] Encounter Details Date Type Department Care Team (Latest Contact Info) Description 10/21/2020 2:00 PM EST TH Visit (TeleHealth) [place] [address] Flip Garcia MD [facility] [place] [address] Limited systemic sclerosis Social History Tobacco Use [...] PM EST documented as of this encounter Patient Instructions * Patient Instructions* Flip Garcia MD - 10/21/2020 2:00 PM EST I recommend holding methotrexate for 1 week and then restarting at 7.5 mg weekly. Also would like to recheck hepatic profile in 3 weeks documented in this encounter Progress Notes * Flip Garcia MD - 10/21/2020 2:00 PM EST This is a telemedicine visit that was performed with the originating site at that patients home address (please see electronic health record for applicable address) and the distant site at my [facility] [place] office. Verbal consent to participate in telephone visit was obtained by Flip Garcia MD or the roomingassistant as documented in their note. This visit occurred during the Coronavirus (COVID-19) PublicHealth Emergency. I discussed with the patient the nature of our telemedicine visits, that: ??? I would evaluate the patient and recommend diagnostics and treatments based on my assessment ??? Our sessions are not being recorded and that personal health information is protected ??? Our team would provide follow up care in person if/when the patient needs it The concept of ???Telemedicine?? has been described to the patient. Patient has been informed of the anticipated benefits and possible risks. Patient understands the information provided regarding telemedicine, has had the opportunity to ask questions about this information, and all questions have been answered to patient's satisfaction. Patient consents for the use of telemedicine in his/her medical care and authorizes the transmission of any relevant medical information to providers and their staff involved inpatient's medical or mental health care. WINNIE Das is a 60 y.o. 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 This is a scheduled telemedicine follow up appointment. 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 ? 02-18-19 Interval events: ?No interval health [...] events: Has surgery scheduled on Sunday at [facility] with Dr. Glover to reattach supraspinatus tendon [...] Surgery was performed by Dr. Glover at [facility]. He had a right rotator cuff repair, extensive shoulder debridement and subacromial decompression. Unable to reattach the long head of the biceps tendon. Had PT after 6 weeks. Passive ROM. PT stopped 3 weeks ago and the plan was to start again in early November. Last appt was 10-27-2019. No interval medical events. No new medications. Both daughters are home, 1 from [facility], and 1 from [place]. 01/23/2020: Tylor continues to improve after his right shoulder surgery. He is going to physical therapy and [place] for the right shoulder. He missed approximately 6 weeks due to the pandemic. He has been playing tennis. He will get some pain at night. His last appointment with Dr. Glover at [facility] section of orthopedics was 12/23/2019. He is [...] 10 mg weekly. He is also taking He is playing tennis weekly. He states that his leg is approximately 90% better. Still with a slight foot drop. Most recent methotrexate monitoring labs shows an ALT of 74 which is outside the normal range. He continues to take ibuprofen 800 mg as needed. Sometimes he will take Naprosyn 500 mg twice daily as needed. He is using trazodone for sleep 50 mg as needed. He is also using prazosin 1 mg for sleep andnightmares. 10/21/2020 interval events: No interval health events. No new medications. Overall Tylor states that he is doing well and has decreased pain and swelling in his hands with using methotrexate 10 mg weekly and Allergies include: Bee pollen and Bee venom protein (honey bee) Review of Systems: Energy is good. Weight is stable. Sleep continues to be good with trazodone. He is back to playing tennis weekly. HEENT: No mouth sores. Notes facial rash. [...] improved range of motion in right shoulder. Symmetric small joint symptoms in his hands improved with methotrexate. Neurologic: Weakness in right foot dorsiflexion. Slowly improving. Vascular: Raynaud's as previously described. No digital [...] 6 hours as needed for Pain. ??? multivitamin (THERAGRAN) Tablet Take 1 tablet by mouth daily. ??? metHOTREXate 2.5 mg Tablet Take 10 mg by mouth. ??? oxyCODONE (Roxicodone) 5 mg Tablet Take 1 tablet by mouth nightly as needed for Pain. (Patient not taking: Reported on 10/07/2019) 10 tablet 0 ??? traZODone (DESYREL) 50 mg Tablet Take 50 mg by mouth nightly. ??? ibuprofen (ADVIL;MOTRIN) 800 mg Tablet TAKE ONE TABLET BY MOUTH EVERY DAY NEEDED 1 ??? magnesium citrate 100 mg Tablet Take by mouth. ??? EPINEPHrine 0.3 mg/0.3 mL Auto-Injector Inject 0.3 mg into the muscle once. ??? atovaquone-proguanil (MALARONE) 250-100 mg Tablet Take [...] taking: Reported on 06/24/2019) 3 tablet 0 ??? zolpidem (AMBIEN) 10 mg Tablet Take 10 mg by mouth nightly as needed for Sleep. No current facility-administered medications for this visit. Allergies Allergen Reactions ??? Bee Pollen Anaphylaxis ??? Bee Venom Protein (Honey Bee) Anaphylaxis Physical Exam: There were no vitals taken for this visit. Telemedicine visit Alert. Oriented. No distress. Appropriate speech thought and content. ? Labs: ? 11/03/2015: CRP 1.4. Uric acid 6.5. Azxv-kdzkbh-bgbgofvy DNA negative. MANAGER FACILITY antibodiesnegative. Anti-Chakraborty antibodies negative. Anti-SCL 70 antibody [...] x 0.2 cm. Entirely submitted in B1. Study Result EXAMINATION: MRI LUMBAR SPINE WO CONTRAST (GENERIC) ?? CLINICAL HISTORY: Lumbar radiculopathy, trauma foot drop on right ? TECHNIQUE: MRI of the lumbar spine performed without intravenous contrast administration. ?? COMPARISON: None ?? FINDINGS: Overall lumbar alignment is normal. There is no focal, aggressive appearing marrow lesion. No focal marrow edema to suggest fracture. The conus is normal in appearance, terminates at L2. Visualized retroperitoneal structures are unremarkable. ?? Findings at specific levels: L1-L2: No canal or foraminal stenosis. ?? L2-L3: There is loss of disc height. Disc bulge produces minor caudal neuroforaminal narrowing. There is slight indentation of the ventral thecal sac. ?? L3-L4: A small left lateral disc protrusion is present in the background of disc bulge which contacts, but does not displace the existing left L3 root. There is mild overall canal narrowing with narrowing of the subarticular recess bilaterally. There is mild to moderate left and mild right foraminal narrowing. ?? L4-L5: Disc bulge and facet arthropathy contributes to mild bilateral foraminal narrowing. There is mild overall canal narrowing. ?? L5-S1: Disc bulge and facet arthropathy produces moderate left foraminal narrowing and narrowing of the subarticular recess. There appears to be a conjoined left L5-S1 nerve root. There is minimal right foraminal narrowing. No canal stenosis. ?? IMPRESSION Multilevel disc degenerative changes as above. No severe canal stenosis. Assessment: 1. Foot drop, right: Improving slowly. MRI was performed here at [facility] to assess for possible nervecompromise given the foot drop on the right. Extruded disc at the L3 level was found on the left. No evidence of spinal stenosis or right- sided lesions that could account for his symptoms. 2. 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 He has started methotrexate 10 mg weekly and is taking folic acid 1 mg daily as recommended. Unfortunately one of his liver tests has returned outside the normal range. I have recommended that he hold methotrexate for 1 week and then decrease his dose to 7.5 mg weekly. I will also check his hepatic function panel in 3 weeks. I will also be reaching out to his primary care provider to see what his baseline liver panel has been. I previously made sure that he knows to take the methotrexate on only 1 day of the week and to take all of the tablets at the same time initially. He also is to take folic acid daily to reduce possibility of side effects. I have thought that it is possible he has an overlap syndrome with rheumatoid arthritis and systemic sclerosis. Plan: Would consider nerve conduction studies for further evaluation of the right foot drop Continue methotrexate 7.5 mg weekly. Continue folic acid 1 mg daily. Methotrexate monitoring labs at [facility]. Repeat hepatic function panel in 3 weeks documented in this encounter Plan of Treatment Not on file documented as of this encounter Visit Diagnoses Diagnosis Limited systemic sclerosis Systemic sclerosis documented in this encounter Care Teams Material Control Analyst Relationship Specialty Start Date End Date Shirin Beltrán MD [address] [place] [address] PCP - General Family Medicine 09/13/15 documented as of this encounter
--- OUTSIDE RECORDS SUMMARY | 2024-04-10 08:38 | XMS_ITS | Clinical Summary ---
Author Organization [facility] Address [facility] [place] [address] Care Team Providers Care User Experience Designer Name Role Phone Shirin Beltrán MD Primary Care Provider [phone] Allergies Active Allergy Reactions Criticality Noted Date Comments Bee Pollen Anaphylaxis High 09/13/2015 Bee Venom Protein (Honey Bee) Anaphylaxis High 05/19 Medications Medication Sig Dispensed Refills Start Date End Date Status zolpidem (AMBIEN) 10 mg Tablet Take 10 mg by mouth nightly as needed for Sleep. Active EPINEPHrine 0.3 mg/0.3 mL Auto-Injector Inject 0.3 mg into the muscle once. Active atovaquone-proguani l (MALARONE) 250-100 mg TabletIndications:C ounseling about travel Take 1 tablet by mouth daily. Start 1 day before travel to risk area,daily in risk area and daily for one week after leaving risk area. 13 tablet 09/03/2017 Active Additional Information Patient not taking.Reported on 06/24/2019 azithromycin (ZITHROMAX) 500 mg TabletIndications:C ounseling about travel Take 1 tablet by mouth daily. Take once daily for fever with diarrhea. 3 tablet 09/03/2017 Active Additional Information Patient not taking.Reported on 06/24/2019 ibuprofen (ADVIL;MOTRIN) 800 mg Tablet TAKE ONE TABLET BY MOUTH EVERY DAY NEEDED 1 05/27/2019 Active multivitamin (THERAGRAN) Tablet Take 1 tablet by mouth daily. Active magnesium citrate 100 mg Tablet Take by mouth. Active traZODone (DESYREL) 50 mg Tablet Take 50 mg by mouth nightly. Active acetaminophen (Tylenol) 500 mg Tablet Take 1,000 mg by mouth every 6 hours as needed for Pain. Active oxyCODONE (Roxicodone) 5 mg TabletIndications:S tatus post right rotator cuff repair Take 1 tablet by mouth nightly as needed for Pain. 10 tablet 09/09/2019 Active Additional Information Patient not taking.Reported on 10/07/2019 naproxen (NAPROSYN) 500 mg Tablet Take 500 mg by mouth Twice daily as needed. Active folic acid (Folvite) 1 mg Tablet 01/23/2020 Active prazosin (Minipress) 1 mg Capsule TAKE 1 CAPSULE BY MOUTH AT NIGHT 08/17/2020 Active Ginkgo Biloba 40 mg Tablet Take by mouth. Active metHOTREXate 2.5 mg Tablet Take 2.5 mg by mouth once a week. 4 tablets by mouth once a week for 90 days Active Active Problems Problem Noted Date Diagnosed Date Status post right rotator cu ff repair, 08/25/2019, Dr. Glover. Massive repair. 09/09/2019 Pain in right shoulder 06/24/2019 Raynaud's disease 09/03/2017 Insomnia 09/03/2017 Health care maintenance 09/03/2017 Immunizations Name Administration Dates Next Due Inactivated Polio Vaccine (IPOL) 09/13/2015 Influenza Quadrivalent, Preservative Free 2018 Influenza Trivalent w/Preservative 05/20/2017, MMR Vaccine LIVE 03/20/2006 Typhoid Live, Oral 09/03/2017 Social History Tobacco Use Types Packs/Day Years [...] Orientation Straight 10/19/2020 2: 01 PM EST Last Filed Vital Signs Vital Sign Reading [...] Mass Index 22.35 09/07/2020 3:41 PM EST Plan of Treatment Health Maintenance Due Date Last Done Comments CT Colonography 1960 Colonoscopy 1960 Colorectal Cancer Screening 1960 FIT DNA 1960 FIT 1960 Sigmoidoscopy (10 year) with FIT yearly 1960 Sigmoidoscopy 1960 HIV screen 01/11/1978 Hepatitis C Screening 01/11/1978 Lipid Screening 01/11/1978 Tdap adult 01/11/1979 Tetanus vaccine 01/11/1979 Zoster vaccine (1 of 2) 01/11/2010 Advance Directive 01/11/2015 Covid-19 Vaccine ( - 2022- season) 2023 Influenza (Flu) vaccine (1 o f 1 - Influenza standard series) 04/20/2024 06/17/2019, 05/20/2017, 07/09/2015 Medical Devices Implanted Type Area Defense Analyst Device Identifier Shelf Expiration Date Model / Serial / Lot Charlieo,Crkscrw ,4.5mm,Pk,Fw- 2 ([id number]) - [id number] Implanted:Qty : 1 on 08/25/2019 by Taurus Glover MD at [facility] IMPLANTS Right: Shoulder [employer] [place] 05/19/2024 AR-[id number] F-45 / / [id number] Ancho,Peek,Sw vlck,4.75x19. 1mm ([id number]) - [id number] Implanted:Qty : 1 on 08/25/2019 by Taurus Glover MD at [facility] IMPLANTS Right: Shoulder [employer] 06/19/2024 AR-[id number] / / [id number] Ancho,Crkscrw ,4.5mm,Pk,Fw- 2 ([id number]) - [id number] Implanted:Qty : 1 on 08/25/2019 by Taurus Glover MD at [facility] IMPLANTS Right: Shoulder [employer] 06/19/2024 AR-[id number] F-45 / / [id number] Ancho,Peek,Sw vlck,4.75x19. 1mm ([id number]) - [id number] Implanted:Qty : 1 on 08/25/2019 by Taurus Glover MD at [facility] IMPLANTS Right: Shoulder [employer] [place] 06/19/2024 AR-2324PS / / [id number] Ancho,Peek,Sw vlck,4.75x19. 1mm ([id number]) - [id number] Implanted:Qty : 1 on 08/25/2019 by Taurus Glover MD at [facility] IMPLANTS Right: Shoulder [employer] [place] 04/19/2024 AR-2324PS / / [id number] Ancho,Crkscrw ,4.5mm,Pk,Fw- 2 ([id number]) - [id number] Implanted:Qty : 1 on 08/25/2019 by Taurus Glover MD at [facility] IMPLANTS Right: Shoulder [employer] [place] 06/19/2024 IL-[id number] F-45 / / [id number] Advance Directives Documents on File Type Date Recorded Patient Human Intelligence Expl anation Personal Human Intelligence 08/19/2019 3:17 PM KD Care Teams User Experience Designer Relationship Specialty Start Date End Date Shirin Beltrán MD [facility] [address] [place], [place] [id number] PCP - General Family Medicine 09/13/15
--- OUTSIDE RECORDS SUMMARY | 2024-04-10 08:38 | XMS_ITS | Encounter Summary ---
Author Organization [facility] [place] [address] Care Team Providers Care Tubing Drier Name Role Phone Shirin Beltrán MD Primary Care Provider Encounter Details Date Type Department Care Team (Latest Contact Info) Description 04/06/2020 9:00 AM EDT TH Visit (TeleHealth) [place] [address] Taurus Glover MD [facility] DR ORTHOP[facility] SURGERY [place] [id number] Status post right rotator cuff repair, 08/25/2019, [...] as of this encounter Progress Notes * Taurus Glover MD - 04/06/2020 9:00 AM EDT Case Date:??08/25/2019 Postoperative diagnosis:??Rotator Cuff Tear, right shoulder ?? Procedure(s) (LRB): ARTHROSCOPY SHOULDER, ROTATOR CUFF REPAIR (WRVU 15.59) (Right) ARTHROSCOPY SHOULDER DEBRIDEMENT EXTENSIVE (WRVU 8.36) (Right) ARTHROSCOPY SHOULDER, SUBACROMIAL DECOMPRESSION (WRVU 3) (Right) MODIFIER [facility]IAM[facility] CHAIR SCHTREVORN (Right) 7 months status post the above surgery. Tylor is doing well. He is been active this summer. He is played some tennis not as much as normal. He feels he still lacking some power with the shoulder. He still has some mild pain at night. But overall is much improved. We discussed an ongoing shoulder rehabilitation program. We discussed that he will likely continue to improve throughout the full year postop. I am happy to see him anytime in the future if he has any troubles. All questions were answered. documented in this encounter Plan of Treatment Not on file documented as of this encounter Visit Diagnoses Diagnosis Status post right rotator cuff repair, 08/25/2019, Dr. Glover. Massive repair. documented in this encounter Care Teams Tubing Drier Relationship Specialty Start Date End Date Shirin Beltrán MD [address] [place] [address] PCP - General Family Medicine 09/13/15 documented as of this encounter
--- OUTSIDE RECORDS SUMMARY | 2024-04-10 08:38 | XMS_ITS | Encounter Summary ---
Author Organization [facility] Address [facility] [place] [address] Care Team Providers Care Engineer Sergeant Name Role Phone Shirin Beltrán MD Primary Care Provider [phone] Reason for Visit * Reason Comments Follow Up Surgery R shoulder Scope, DO S 08.25.19 Encounter Details Date Type Department Care Team (Late st Contact Info) Description 09/09/2019 11:30 AM EST Office [place] [address] Taurus Glover MD [facility] [place] [address] Status post right rotator cuff repair, 08/25/2019, [...] Sign Reading Time Taken Comments Blood Pressure 133/65 09/09/2019 11:13 AM EST Pulse 76 09/09/2019 11:13 AM EST Temperature 36.3 ??C (97.4 ??F) 09/09/2019 11:[address] Respiratory Rate - - Oxygen Saturation - - Inhaled Oxygen Concentration - - Weight 63.5 kg (140 lb) 09/09/2019 11:13 AM EST Height 172.7 cm (5' 8) 09/09/2019 11:13 AM EST Body Mass Index 21.29 09/09/2019 11:13 AM EST documented in this encounter Progress Notes * Christie Mercedes APRN - 09/09/2019 11:30 AM EST Case Date: 08/25/2019 Surgeon: Surgeon(s) and Role: [...] y.o. male who presents the clinic approximately 2 weeks status post arthroscopic rotator cuff repair of the right shoulder. Reports he is doing fairly well postoperatively but still has significant discomfort at night. He has remained in his sling as instructed. He has not started physical therapy. He is taking acetaminophen PRN for pain relief though would appreciate some narcotic medication to take at nighttime. Reports he has been otherwise well without fever, chills, night sweats, shortness of breath, chest pain, nausea, vomiting, diarrhea, incisional issues. Exam: Blood pressure 133/65, pulse 76, temperature 36.3 ??C (97.4 ??F), height 172.7 cm (5' 8), weight 63.5 kg (140 lb). Alert and oriented x4. No apparent distress. Examination of the right shoulder upper extremity reveals well approximated incisions without erythema or drainage. There is a small amount of localized ecchymosis present over the area of the biceps. Right elbow and wrist range of motion within normal limits. Right radial pulse 2+ to palpation. Right upper extremity sensations intact light touch. Assessment/Plan: 59-year-old male approximately 2 weeks status post arthroscopic rotator cuff repair of a massive tear. Doing well postoperatively. Discussed plan including having him remain in slingfor the balance of 6 weeks. Did demonstrate some wrist and elbow range of motion exercises. Provided final refill of oxycodone for him to take at night. He will hold off on PT until after his next visit in 4 weeks. He will call with any questions in the interim. documented in this encounter Plan of Treatment Not on file documented as of this encounter Visit Diagnoses Diagnosis Status post right rotator cuff repair, 08/25/2019, Dr. Glover. Massive repair. documented in this encounter Care Teams Engineer Sergeant Relationship Specialty Start Date End Date Shirin Beltrán MD [address] [place] [address] PCP - General Family Medicine 09/13/15 documented as of this encounter
--- OUTSIDE RECORDS SUMMARY | 2024-04-10 08:39 | XMS_ITS | Encounter Summary ---
Author Organization [facility] Address [address] [place] [address] Care Team Providers Care Dry Color Tester Name Role Phone Shirin Draper MD Primary Care Provider [phone] Reason for Visit * Reason Comments Joint Pain Encounter Details Date Type Department Care Team (Late st Contact Info) Description 11/20/2019 14:00 EDT Telemedicine [facility] Rheumatology [address] [place] [address] Flip Garcia MD [facility] Rheumatology [address] [place] [address] [place] [id number] Systemic sclerosis (HCC-CMS) (Primary Dx); Chronic right shoulder pain Social History Tobacco Use Types Packs/Day Years Used Date Smoking Tobacco: Never Smokeless Tobacco: Never Sex and Gender Information Value Date Recorded Sex Assigned at Not on file Gender Identity Not on file Sexual Orientation Not on file COVID-19 Exposure Response Date Recorded In the last month, have you been in contact with someone who was confirmed or suspected to have Coronavirus / COVID-19? No / Unsure 11/20/2019 14:15 EDT documented as of this encounter Functional Status Functional Status Response Date of Assess ment Because of a physical, menta l, or emotional condition, does this person have difficulty doing errands alone such as visiting a doctor's office or shopping? No 08/19/2019 Cognitive Status Response Date of Assessm ent Because of a physical, menta l, or emotional condition, does this person have serious difficulty concentrating, remembering, or making decisions? No 08/19/2019 documented as of this encounter Patient Instructions * Patient Instructions* Flip Garcia MD - 11/20/2019 14:00 EDT Will continue to hold on starting methotrexate. I would like to have a follow-up appointment in 2 months. At that time we can readdress the possibility of starting a disease modifying anti-rheumatoiddrug. In the meantime we will focus on rehabilitation of the right shoulder. We will continue to use ibuprofen as needed for pain control and anti- inflammatory effect although given care high thank you for calling think documented in this encounter Progress Notes * Flip Garcia MD - 11/20/2019 1400 EDT [facility] Rheumatology No chief complaint on file. Verbal consent: The concept of ???Telemedicine?? has been described to the patient. Patient has been informed of the anticipated benefits and possible risks. Patient understands the information provided regarding telemedicine, has had the opportunity to ask questions about this information, and all questions have been answered to patient???s satisfaction. Patient consents for the use of telemedicine in his/her medical care and authorizes the transmission of any relevant medical information to providers and their staff involved in patient???s medical or mental health care. HPI: ? This is a scheduled follow up appointmentPlease refer to my initial note of consultation for details of presentation. To review: ?I think Tylor has a subset of systemic sclerosis. 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 I have been able to access Dr. Kemp's notes and laboratory tests which show a positive antinuclear antibody at a 1: 320 titer. Specific antibody notable for anti-SCL 70 more than 8.0. I recommended changing him from diltiazem to a dihydropyridine class of calcium channel paris, either nifedipine or amlodipine. 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 ?01/02/2019 interval events: ?No new symptoms. ?Has not started dihydropyridine class calcium channel paris. ?No new medications. ?No interval health events. 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 ?02-18-19 Interval events: ?No interval health events. ?Started amlodipine 5 mg daily. ?Had HRCT testing and TTE. ?05-28-19 Interval events: ?Scheduled follow-up appointment. Did not [...] events: Has surgery scheduled on Sunday at [facility] with Dr. Glover to reattach supraspinatus [...] Surgery was performed by Dr. Glover at [facility]. He had a right rotator cuff repair, extensive shoulder debridement and subacromial decompression and right beach chair Schlein. To our surgery. Unable to reattach the long head of the biceps tendon went home same day. Had PT after 6 weeks. Passive ROM. PT stopped 3 weeks ago and the plan was to start again in early November. Last appt was 10-27-2019. No interval medical events. No new medications. Both daughters are home, 1 from [facility], and 1 from [place]. Current Outpatient Medications: traZODone (DESYREL) 50 mg tablet Allergies include: Bee pollen and Bee venom protein (honey bee) Review of Systems: Energy is good. Weight is stable. Sleep is good with trazodone. HEENT: No mouth sores. Notes facial rash. No sicca symptoms. 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 No rash. No ulcerations. Cardiovascular: No chest pain or palpitations. Pulmonary: No dyspnea cough or wheezing. GI: No upper or lower GI symptoms. Musculoskeletal: Right shoulder doing well. Recovering nicely from surgery. Unfortunately physical therapy has been interrupted. He is decided not to start methotrexate. Neurologic: No focal motor or sensory neurologic symptoms. Vascular: Raynaud's as previously described. Physical Examination: There were no vitals taken for this visit. Telephone visit Not examined as this is a telephone visit ? Labs: ? 11/03/2015: CRP 1.4. Uric acid 6.5. Deba-zqkplf-xptrerei DNA negative. TORPEDOMAN'S MATE antibodiesnegative. Anti-Chakraborty antibodies negative. Anti-SCL 70 antibody high at more than 8.0. Anti-SSA negative. Anti-SSB negative. Anti- cromolyn antibodies negative. Anti-Eugenia 1 antibody negative. Anti-myeloperoxidase antibody negative. Anti-proteinase 3 antibody negative. C ANCA negative. P. ANCA negative.C3 and C4 normal. Anticardiolipin antibodies negative. Anticentromere antibody negative. Lupus anticoagulant negative. LINDA +1: 320. I do not know the immunofluorescent pattern. ? Diagnostic imaging:. Labs: No visits with results within 6 Month(s) from this visit. Latest known visit with results is: Results Only on 02/28/2019 Component Date Value ??? Pathology Report: 02/28/2019 Value:SURGICAL PATHOLOGY REPORT Reports generated via electronic interface contain original data; however they are lacking the format of the original report. Caution should be taken when reading/interpreting unformatted reports. Name: ABIDA LOWERY : 1960 (Age: 59) M Collect Date: 02/28/2019 Location: [facility] Receive Date: 02/28/2019 Provider: PRESTON BARRIENTOS MD Copy to: SHIRIN DRAPER MD Final Pathologic Diagnosis: A. COLON, TRANSVERSE, POLYPS, BIOPSY: - Fragments of tubular adenomas. B. RECTUM, POLYP, BIOPSY: - Fragment of hyperplastic polyp with prominent lymphoid aggregate. Document reviewed and electronically signed by: DANIEL CERNA MD Report Date: 03/04/2019 11:20 By the signature above, the attending physician certifies that he/she has personally conducte d a gross and/or microscopic examination of the described specimens and rendered or confirmed the above diagnosis. Specimen(s) Received: A. Transverse colon polyps x2 [...] x 0.2 cm. Entirely submitted in B1. KEILA Honeycutt ([facility]) 02/28/2019 4:12 PM End of Report Diagnosis / Assessment: 1. 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 I had switched him from amlodipine to nifedipine yet he is not taking nifedipine at this time. Due to the fact that I believe he had some small joint inflammation especially in the MCPs I had wanted to start him on disease modifying anti-rheumatoid drug. I have recommended methotrexate. We had decided to hold off on starting this until completing shoulder surgery and recuperation. At this time he does not want to start methotrexate. He states that his joints are doing. Additionally we are in the middle of a coronavirus pandemic has some concerns about immunosuppression given potential for getting infected with this novel virus.. I have thought that it is possible he has an overlap syndrome with rheumatoid arthritis and systemic sclerosis. 2. Chronic right shoulder pain Successful right shoulder arthroscopic surgery by Dr. Glover at [facility] section of with surgery. Unfortunately unable to attach the long head of the biceps tendon. Extensive repair to rotator cuff and decompression of the acromion. He has beendoing well in physical therapy yet this needed to be put on hold due to concerns about coronavirus infection. He will be starting again hopefully in the coming weeks. Recommendations/Evaluation: This visit was conducted by telephone. I spent a total of 23 minutes in discussion with the patientas described in the progress note. Flip Garcia MD documented in this encounter Plan of Treatment Not on file documented as of this encounter Visit Diagnoses Diagnosis Systemic sclerosis ([facility])- Primary Systemic sclerosis Chronic right shoulder pain Pain in joint, shoulder region documented in this encounter Care Teams Dry Color Tester Relationship Specialty Start Date End Date Shirin Draper MD [address] [place] [id number] PCP - General 03/07/19 documented as of this encounter
--- OUTSIDE RECORDS SUMMARY | 2024-04-10 08:39 | XMS_ITS | Encounter Summary ---
Author Organization [facility] Address [address] [place] [address] Care Team Providers Care Boarding Kennel Or Cattery Operator Name Role Phone Shirin Draper MD Primary Care Provider [phone] Reason for Visit * Reason Comments Follow-up Systemic sclerosis; Has not returned call for televideo chart prep Encounter Details Date Type Department Care Team (Late st Contact Info) Description 01/23/2020 13:30 EDT Telemedicine [facility] Rheumatology [address] [place] [address] Flip Garcia MD [facility] Rheumatology [address] [place] [address] [place] [phone] Systemic sclerosis (HCC-CMS) (Primary Dx); Chronic right shoulder pain Social History Tobacco Use Types Packs/Day Years Used Date Smoking Tobacco: Never Smokeless Tobacco: Never Sex and Gender Information Value Date Recorded Sex Assigned at Not on file Gender Identity Not on file Sexual Orientation Not on file documented as of this encounter Functional Status [...] No 08/19/2019 documented as of this encounter Ordered Prescriptions Prescription Sig Dispensed Refills Start Date End Da te folic acid (FOLVITE) 1 mg tabletIndications:Systemic sclerosis (HCC-CMS) Take 1 Tab by mouth daily for 90 days. 90 Tab 3 01/23/2020 04/22/2020 methotrexate 2.5 mg tabletIndications:Systemic sclerosis (HCC-CMS) Take 4 Tabs by mouth once a week for 90 days. 48 Tab 3 01/23/2020 04/22/2020 documented in this encounter Progress Notes * Flip Garcia MD - 01/23/2020 1330 EDT [facility] Rheumatology Chief Complaint Patient presents with ??? Follow-up Systemic sclerosis; Has not returned call for televideo chart prep This is a telemedicine visit that was performed with the originating site at that patients home address (please see electronic health record for applicable address) and the distant site at my [facility] office. Verbal consent to participate in ZOOM video visit was obtained by Flip Garcia MD or the rooming housekeeping assistant as documented in their note. This visit occurred during the Coronavirus (COVID-19) Public Health Emergency. I discussed with the patient the [...] care. HPI: ? 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 ?02-18-19 Interval events: ?No interval health events. [...] events: Has surgery scheduled on Sunday at [facility] with Dr. Glover to reattach supraspinatus tendon [...] Surgery was performed by Dr. Glover at [facility]. He had a right rotator cuff [...] medications. Both daughters are home, 1 from [facility], and 1 from [place]. 01/23/2020: Tylor continues to improve after his right shoulder surgery. He is going to physical therapy and [place] for the right shoulder. He missed approximately 6 weeks due to the pandemic. He has been playing tennis. He will get some pain at night. His last appointment with Dr. Glover at [facility] section of orthopedics was 12/23/2019. He is [...] He is now ready to consider this. Current Outpatient Medications: traZODone (DESYREL) 50 mg tablet Allergies include: Bee pollen and Bee venom protein (honey bee) Review of Systems: Energy is good. Weight is stable. Sleep continues to be good with trazodone. He is more active withplaying tennis. HEENT: No mouth sores. Notes facial rash. No sicca symptoms. 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 Firm nodular swelling in the back of the right hand no rash. No ulcerations. Cardiovascular: No chest pain or palpitations. Pulmonary: No dyspnea cough or wheezing. GI: No upper or lower GI symptoms. Musculoskeletal: Right shoulder improving. He is going to physical therapy now. He is playing tennis. He has improved range of motion. He is having symmetric small joint inflammatory symptoms in his hands. This seems he is also having bilateral Achilles tendinitis as well. Neurologic: No focal motor or sensory neurologic symptoms. Vascular: Raynaud's as previously described. Physical Examination: There were no vitals taken for this visit. Pain level 2/10 Alert. Oriented. No distress. Healthy appearing. Appropriate speech thought and content. He demonstrates to me swelling in the MCPs bilaterally on video as well as the firm nodular swelling on the back of his right hand. ? Labs: ? 11/03/2015: CRP 1.4. Uric acid 6.5. Xcsx-pskkpa-pezzemng DNA negative. MARKETING EFFECTIVENESS MANAGER antibodiesnegative. Anti-Chakraborty antibodies negative. Anti-SCL 70 antibody [...] (Age: 59) M Collect Date: 02/28/2019 Location: [facility] Receive Date: 02/28/2019 Provider: PRESTON BARRIENTOS MD [...] cm. Entirely submitted in B1. KEILA Honeycutt ([facility]) 02/28/2019 4:12 PM End of Report Diagnosis / Assessment: 1. 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 I would like to start him on methotrexate. I have called in to local pharmacy 10 mg weekly and folic acid 1 mg daily. I made sure that he knows to take the methotrexate on only 1 day of the week and to take all of the tablets at the same time initially. Later we can talk about dividing the dose. He also is to take folic acid daily to reduce possibility of side effects. I have thought that it is possible he has an overlap syndrome with rheumatoid arthritis and systemic sclerosis. 2. Chronic right shoulder pain Successful right shoulder arthroscopic surgery by Dr. Glover at [facility] section of with surgery. He is improving with physical therapy. He willbe following up with Dr. Glover in the coming weeks. Recommendations/Evaluation: Total gqmn-cy-nggt time: 20 minutes, >50% spent counseling on above issues. Flip Garcia MD documented in this encounter Plan of Treatment Not on file documented as of this encounter Visit Diagnoses Diagnosis Systemic sclerosis (HCC-CMS)- Primary Systemic sclerosis Chronic right shoulder pain Pain in joint, shoulder region documented in this encounter Care Teams Boarding Kennel Or Cattery Operator Relationship Specialty Start Date End Date Shirin Draper MD [address] [place] [id number] PCP - General 03/07/19 documented as of this encounter
--- OUTSIDE RECORDS SUMMARY | 2024-04-10 08:39 | XMS_ITS | Encounter Summary ---
Author Organization [facility] Address [facility] [place] [address] Care Team Providers Care Skin Carver Name Role Phone Shirin Beltrán MD Primary Care Provider [phone] Encounter Details Date Type Department Care Team (Late st Contact Info) Description 09/13/2015 10:00 AM EST Office [place] [address] Obdulio Dueñas MD [facility] [place] [address] Emili Mariano RN Need for prophylactic vaccination and inoculation against poliomyelitis; Counseling for travel Social History Tobacco Use Types Packs/Day Years Used Date Smoking Tobacco: Never Sex and Gender Information Value Date Recorded Sex Assigned at Male 10/19/2020 2:01 PM EST Gender Identity Male 10/19/2020 2:02 PM EST Sexual Orientation Straight 10/19/2020 2: 01 PM EST documented as of this encounter Last Filed Vital Signs Vital Sign Reading Time Taken Comments Blood Pressure 121/68 09/13/2015 10:01 AM EST Pulse 69 09/13/2015 10:01 AM EST Temperature 36.6 ??C (97.8 ??F) 09/13/2015 10:[address] Respiratory Rate - - Oxygen Saturation 99% 09/13/2015 10:01 AM EST Inhaled Oxygen Concentration - - Weight 66.7 kg (147 lb) 09/13/2015 10:01 AM EST Height 171.5 cm (5' 7.5) 09/13/2015 10:01 AM ES T Body Mass Index 22.68 09/13/2015 10:01 AM EST documented in this encounter Patient Instructions * Patient Instructions* Emili Mariano RN - 09/13/2015 10:55 AM EST Today, you received the following vaccines: [] Flu shot (recommended annually) [] TDaP (good for 10 years) [] Td (good for 10 years) [] MMR (this is your one lifetime booster dose) [] Hepatitis A* (first dose good for 6 months, need a booster anytime after 6 months) [] Hepatitis B* (series is a total of 3) [x] IPV (polio - this is your adult lifetime booster) [] Meningococcal meningitis [] Pneumococcal [] Rabies* (series is a total of 3, Day 1, Day 7, and Day 21) [] Yellow fever (good for 10 yrs. Keep your yellow card w/ you when traveling as proof) [] Romanian Encephalitis* (series of 2, Day 1 and Day 28) [] Typhoid IM (good for 2-3 years) [] Typhoid oral (Take 1 capsule every other day on am empty stomach x 4 doses. Keep in fridge. Goodfor 5 years) *Please remember to schedule your follow-up boosters, if indicated. Call us at [phone] to schedule an appointment for these vaccines. Today, you were also prescribed a medication for malaria prevention. Remember that meticulous insect precautions must be taken to prevent other insect borne illnesses (see handout) [] no malaria prophylaxis indicated for this itinerary [x] Malarone - Start taking 1 day prior to travel to malaria risk area. Take daily while there and for 7 more additional days thereafter. Take this medication with food. Given by home physician; reviewed directions for taking [] Mefloquine or Chloroquine - Start 1 week prior to travel to a malaria risk area. Take once weekly while there and for 4 additional weeks thereafter. [] Doxycycline - Start 1 day prior to travel to malaria risk area. Take daily while there and for 28 additional days thereafter. We also sent a prescription for medicine to self treat for traveler;s diarrhea. Remember to carry all your medicines in your carry on luggage Additional Recommendations/Instructions: Have a great trip! Emili [email or web address] [phone] documented in this encounter Progress Notes * Emili Mariano RN - 09/30/2015 11:50 AM EST Seen in Travel Clinic on 09/13/15 Assessment of vaccines at that time; no documentation of Hep A or typhoid. 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 * Emili Mariano RN - 09/13/2015 10:24 AM EST Adult Travel Note Reason for Visit: Abida Santiago is a 55 y.o. male who comes to travel clinic today for pre-travel evaluation, vaccination and traveler's health education. Trip Details: Destination countries (list from first to last): [place] - [facility], [facility]; [facility]- [facility], [facility], [place], [place], [facility] [facility] Departure date: 10/07/15 Length of trip: 3 weeks Purpose of travel: service Type of environment (urban or rural): both Accommodations: hotels; 1-2 nights camping (sleeping in private, open home and will be provided with mosquito net) Medical History: There is no problem list on file for this patient. healthy Immunosuppression: No recent steroid use; chemotherapy or other immunosuppresion. History of adverse vaccine reactions: None. History of latex allergy: None. Medications: Current outpatient prescriptions: ??? naproxen sodium (ALEVE) 220 mg Capsule, Take 500 mg by mouth as needed., Disp: , Rfl: ??? zolpidem (AMBIEN) 10 mg Tablet, Take 10 mg by mouth nightly as needed for Sleep., Disp: , Rfl: ??? atovaquone-proguanil (MALARONE) 250-100 mg Tablet, Take 1 tablet by mouth daily., Disp: , Rfl: Allergies: Review of patient's allergies indicates no known allergies. Patient advised to carry all medications in carry on luggage. Patient advised to carry epipen. 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 The following strategies were recommended for the management of traveler's diarrhea according to severity: ??? For treatment of mild diarrhea: hydration and over the counter antidiarrheal recommended. ??? For treatment of diarrhea accompanied by fever or systemic illness: hydration and empiric treatment with antibiotic recommended. A prescription for azithromycin, once daily for three days, sent to pharmacy . ??? For severe or bloody diarrhea, or diarrhea accompanied by vomiting: patient advised to seek medical treatment. Vector-borne Disease Prevention Discussed insect bite prevention to reduce risk of malaria, dengue,chikungunya and other insect borne illnesses. Handout given. Malaria Risk: Significant risk of malaria on this itinerary in [facility]. Discussed malaria chemoprophylaxis and possible side effects. Prescription for: malarone given by PCP; reviewed directions for taking Altitude: This trip does not involve high altitude. Travel Clinic Immunization History and Orders Immunization History Administered Date(s) Administered ??? Influenza Vaccine w/Preservative, Split 07/09/2015 Immunizations to be given today: polio vaccine Vaccine information sheets given Follow-up Recommendations: Patient advised to call travel clinic if they return from trip with any illness. Rabies: discussed animal avoidance, wound care and need for post-exposure Patient advised to wait in environmental compliance engineer 5C waiting area for 15 min after receiving Yellow Fever vaccine to monitor for adverse reactions: Yellow fever vaccine given: Yes No__x___ Time spent in travel counselin min Note written by EMILI MARIANO RN documented in this encounter Plan of Treatment Not on file documented as of this encounter Visit Diagnoses Diagnosis Need for prophylactic vaccination and inoculation against poliomyelitis Counseling for travel Other specified counseling documented in this encounter Care Teams Skin Carver Relationship Specialty Start Date End Date Shirin Beltrán MD [address] [place] [address] PCP - General Family Medicine 09/13/15 documented as of this encounter
--- OUTSIDE RECORDS SUMMARY | 2024-04-10 08:39 | XMS_ITS | Encounter Summary ---
Author Organization [facility] Address [address] [place] [address] Care Team Providers Care Outcome Analyst Name Role Phone Shirin Beltrán MD Primary Care Provider Encounter Details Date Type Department Care Team (Latest Contact Info) Description 05/28/2019 13:46 EDT - 05/28/2019 23:59 EDT Hospital Encounter [facility] [address] [place] [address] Unknown, Provider, Discharge Disposition: Home or Self Care Social History Tobacco Use Types Packs/Day Years Used Date Smoking Tobacco: Never Assessed Sex and Gender Information Value Date Recorded Sex Assigned at Not on file Gender Identity Not on file Sexual Orientation Not on file documented as of this encounter Discharge Disposition Disposition Code Departure Means Destination Home or Self Group Home documented in this encounter Plan of Treatment Not on file documented as of this encounter Visit Diagnoses Not on filedocumented in this encounter Care Teams Outcome Analyst Relationship Specialty Start Date End Date Shirin Beltrán MD [address] [place] [phone] PCP - General 03/07/19 documented as of this encounter
--- OUTSIDE RECORDS SUMMARY | 2024-04-10 08:39 | XMS_ITS | Encounter Summary ---
Author Organization [facility] Address [address] [place] [address] Care Team Providers Care Direct Care Specialist Name Role Phone Shirin Beltrán MD Primary Care Provider [phone] Encounter Details Date Type Department Care Team (Late st Contact Info) Description 10/06/2021 Lab Requisition [facility] Pathology & Laboratory Medicine - [facility] [address] [place] [address] Outr Resulting Lab, Provider Social History Tobacco Use Types Packs/Day Years Used Date Smoking Tobacco: Never Smokeless Tobacco: Never Interpersonal Safety Answer Date Record ed Physically Hurt Never 03/21/2020 Verbally Threaten Not on file 03/21/2020 Sex and Gender Information Value Date Recorded [...] No 08/19/2019 documented as of this encounter Plan of Treatment Not on file documented as of this encounter Procedures Procedure Name Priority Date/Time Associated Diagnosis Comments HEPATITIS C AB W REFLEX TO HCV RNA BY PCR Routine 10/06/2021 7:30 EST documented in this encounter Results * HEPATITIS C AB W REFLEX TO HCV RNA BY PCR (10/06/2021 7:30 EST) Hep C Antibody Negative Negative 10/07/2021 10:26 EST [facility] Blood VENOUS BLOOD / Unknown 10/06/2021 7:30 EST 10/06/2021 21:11 EST Provider Outr Resulting Lab CHEMISTRY & BLOOD GAS ORDERABLES Performing Organization Address City/State/[facility] Co de Phone Number [facility] [address] [place] [address] documented in this encounter Visit Diagnoses Not on filedocumented in this encounter Care Teams Direct Care Specialist Relationship Specialty Start Date End Date Shirin Beltrán MD [address] [place] [address] [phone] PCP - General 03/07/19 documented as of this encounter
--- OUTSIDE RECORDS SUMMARY | 2024-04-10 08:39 | XMS_ITS | Encounter Summary ---
Author Organization [facility] Address [address] [place] [address] Care Team Providers Care Federal Judge Name Role Phone Shirin Beltrán MD Primary Care Provider [phone] Reason for Visit * Reason Comments Other Encounter Details Date Type Department Care Team (Late st Contact Info) Description 04/01/2021 Refill [facility] Rheumatology [address] [place] [address] Flip Garcia MD [facility] Rheumatology [address] [place] [address] [place] [phone] Other Social History Tobacco Use Types Packs/Day Years [...] this encounter Visit Diagnoses Diagnosis Systemic sclerosis ([facility])- Primary Systemic sclerosis documented in this encounter Care Teams Federal Judge Relationship Specialty Start Date End Date Shirin Beltrán MD [address] [place] [address] [phone] PCP - General 03/07/19 documented as of this encounter
--- OUTSIDE RECORDS SUMMARY | 2024-04-10 08:39 | XMS_ITS | Referral Summary ---
Author Organization [facility] Address [address] [place] [address] Care Team Providers Care Pot Puller Name Role Phone Shirin Beltrán MD Primary Care Provider [phone] Allergies Active Allergy Reactions Criticality Noted Date Comments Bee Pollen Anaphylaxis High 09/13/2015 Bee Venom Protein (Honey Bee) Anaphylaxis High 05/19 Medications Medication Sig Dispensed Refills Start Date End Date Status ibuprofen (MOTRIN) 800 mg tablet Take 800 mg by mouth every 8 hours as needed for Pain. Active naproxen (NAPROSYN) 500 mg tablet Take 500 mg by mouth 2 times daily as needed. Active traZODone (DESYREL) 50 mg tablet Take 1 Tab by mouth at bedtime as needed for Sleep. 30 Tab 3 09/15/2019 Active Active Problems Problem Noted Date Diagnosed Date Systemic sclerosis ([facility]) 08/19/2019 Chronic right shoulder pain 08/19/2019 Social History Tobacco Use Types Packs/Day Years Used Date Smoking Tobacco: Never Smokeless Tobacco: Never Interpersonal Safety Answer Date Record ed Physically Hurt Never 03/21/2020 Verbally Threaten Not on file 03/21/2020 Sex and Gender Information Value Date Recorded Sex Assigned at Not on file Gender Identity Not on file Sexual Orientation Not on file Last Filed Vital Signs Vital Sign Reading Time Taken Comments Blood Pressure 120/62 08/19/2019 1401 EST Pulse 67 08/19/2019 1401 EST Temperature - - Respiratory Rate - - Oxygen Saturation - - Inhaled Oxygen Concentration - - Weight 63.5 kg (140 lb) 08/19/2019 1401 EST Height 170.2 cm (5' 7) 08/19/2019 1401 EST Body Mass Index 21.93 08/19/2019 1401 EST Functional Status Functional Status Response Date of [...] concentrating, remembering, or making decisions? No 08/19/2019 Plan of Treatment Not on file Procedures Procedure Name Priority Date/Time Associated Diagnosis Comments HEPATITIS C AB W REFLEX TO HCV RNA BY PCR Routine 10/06/2021 7:30 EST from Last 3 Months or Most Recently Relevant to Health Maintenance Results * HEPATITIS C AB W REFLEX TO HCV RNA BY PCR (10/06/2021 7:30 EST) Hep C Antibody Negative Negative 10/07/2021 10:26 EST [facility] Blood VENOUS BLOOD / Unknown 10/06/2021 7:30 EST 10/06/2021 21:11 EST Provider Outr Resulting Lab CHEMISTRY & BLOOD GAS ORDERABLES [facility] [address] [place] [address] from Last 3 Months or Most Recently Relevant to Health Maintenance Abida Das Personal/Family Self 1960 [phone] [employer] (Work) [address] [place] [address] Abida Das Personal/Family Self 1960 [phone] [employer] (Work) [address] [place] [address] Abida Das Personal/Family Self 1960 [phone] [employer] (Work) [address] [place] [address] Abida Das Personal/Family Self 1960 [phone] [employer] (Work) [address] [place] [address] Abida Das Personal/Family Self 1960 [phone] [employer] (Work) [address] [place] [address] Abida Das Personal/Family Self 1960 [phone] [employer] (Work) [address] [place] [address] Abida Das Personal/Family Self 1960 [phone] [employer] (Work) [address] [place] [address] Care Teams Pot Puller Relationship Specialty Start Date End Date Shirin Beltrán MD [address] [place] [phone] PCP - General 03/07/19
--- OUTSIDE RECORDS SUMMARY | 2024-04-10 08:39 | XMS_ITS | Encounter Summary ---
Author Organization [facility] Address [address] [place] [address] Care Team Providers Care Air Brake Adjuster Name Role Phone Shirin Beltrán MD Primary Care Provider [phone] Encounter Details Date Type Department Care Team (Late st Contact Info) Description 10/06/2021 Lab Requisition [facility] Pathology & Laboratory Medicine - [facility] [address] [place] [address] Outr Resulting Lab, Provider Social History Tobacco [...] Procedure Name Priority Date/Time Associated Diagnosis Comments HIV 1/2 ANTIGEN AND ANTIBODY, 4TH GENERATION Routine 10/06/2021 7:30 EST documented in this encounter Results * HIV 1/2 ANTIGEN AND ANTIBODY, 4TH GENERATION (10/06/2021 7:30 EST) HIV 1 and 2 Antibody/p24 Antigen, 4th Generation Negative Negative 10/07/2021 10:15 EST [facility] Comment:If acute HIV-1 infec tion is suspected in a high risk patient, submit plasma specimen for HIV-1 RNA quantitation test. Blood VENOUS BLOOD / Unknown 10/06/2021 7:30 EST 10/06/2021 21:11 EST Narrative [facility] - 10/07/2021 10:15 EST Fourth Generation assay performed on the Siemens Zipmarkaur XPT. Provider Outr Resulting Lab IMMUNOLOGY A ND SEROLOGY ORDERABLES Performing Organization Address City/State/[facility] Co de Phone Number [facility] [address] [place] [address] documented in this encounter Visit Diagnoses Not on filedocumented in this encounter Care Teams Air Brake Adjuster Relationship Specialty Start Date End Date Shirin Beltrán MD [address] [place] [phone] PCP - General 03/07/19 documented as of this encounter
--- OUTSIDE RECORDS SUMMARY | 2024-04-10 08:39 | XMS_ITS | Encounter Summary ---
Author Organization [facility] Address [address] [place] [address] Care Team Providers Care Research Dairy Farm Supervisor Name Role Phone Shirin Beltrán MD Primary Care Provider [phone] Encounter Details Date Type Department Care Team (Late st Contact Info) Description 07/11/2019 Orders Only [facility] Rhe[facility]ology [address] [place] [address] Flip Garcia MD [facility] Rheumatology [address] [place] [address] [place] [phone] Social History Tobacco Use Types Packs/Day Years Used Date Smoking Tobacco: Never Assessed Sex and Gender Information Value Date Recorded Sex Assigned at Not on file Gender Identity Not on file Sexual Orientation Not on file documented as of this encounter Plan of Treatment Not on file documented as of this encounter Visit Diagnoses Not on filedocumented in this encounter Care Teams Research Dairy Farm Supervisor Relationship Specialty Start Date End Date Shirin Beltrán MD [address] [phone] PCP - General 03/07/19 documented as of this encounter
--- OUTSIDE RECORDS SUMMARY | 2024-04-10 08:39 | XMS_ITS | Clinical Summary ---
Author Organization [facility] Address [address] [place] [address] Care Team Providers Care Roving Court Reporter Name Role Phone Shirin Beltrán MD Primary Care Provider [phone] Allergies Active Allergy Reactions Criticality Noted Date [...] Problem Noted Date Diagnosed Date Systemic sclerosis ([facility]) 08/19/2019 Chronic right shoulder pain 08/19/2019 Social History Tobacco Use Types Packs/Day Years Used Date Smoking Tobacco: Never Smokeless Tobacco: Never Interpersonal Safety Answer Date Record ed Physically Hurt Never 03/21/2020 Verbally Threaten Not on file 03/21/2020 Sex and Gender Information Value Date Recorded Sex Assigned at Not on file Gender Identity Not on file Sexual Orientation Not on file Obstetrics History Last Filed Vital Signs Vital Sign Reading Time Taken Comments Blood Pressure 120/62 08/19/2019 1401 EST Pulse 67 08/19/2019 1401 EST Temperature - - Respiratory Rate - - Oxygen Saturation - - Inhaled Oxygen Concentration - - Weight 63.5 kg (140 lb) 08/19/2019 1401 EST Height 170.2 cm (5' 7) 08/19/2019 1401 EST Body Mass Index 21.93 08/19/2019 1401 EST Plan of Treatment Health Maintenance Due Date Last Done Comments RSV Immunization ( o r 60+ Years) (1 - 1-dose 60+ series) 2020 COVID-19 Vaccine ( - 2022- season) 2023 Hepatitis C Screen Completed 10/06/2021 Procedures Procedure Name Priority Date/Time Associated Diagnosis Comments HEPATITIS C AB W REFLEX TO HCV RNA BY PCR Routine 10/06/2021 7:30 EST from Last 3 Months or Most Recently Relevant to Health Maintenance Results * HEPATITIS C AB W REFLEX TO HCV RNA BY PCR (10/06/2021 7:30 EST) Hep C Antibody Negative Negative 10/07/2021 10:26 EST [facility] Blood VENOUS BLOOD / Unknown 10/06/2021 7:30 EST 10/06/2021 21:11 EST Provider Outr Resulting Lab CHEMISTRY & BLOOD GAS ORDERABLES [facility] [address] [place] [address] from Last 3 Months or Most Recently Relevant to Health Maintenance Care Teams Roving Court Reporter Relationship Specialty Start Date End Date Shirin Beltrán MD [address] [phone] PCP - General 03/07/19
--- OUTSIDE RECORDS SUMMARY | 2024-04-10 08:39 | XMS_ITS | Encounter Summary ---
Author Organization [facility] Address [address] [place] [address] Care Team Providers Care Donor Technician Name Role Phone Shirin Beltrán MD Primary Care Provider [phone] Reason for Visit * Reason Comments Other Encounter Details Date Type Department Care Team (Late st Contact Info) Description 05/10/2021 Refill [facility] [address] [place] [address] Flip Garcia MD [facility] Rheumatology [address] [place] [address] [place] [phone] Other Social History Tobacco Use Types Packs/Day [...] No 08/19/2019 documented as of this encounter Miscellaneous Notes * Telephone Encounter - Kate Del Real RN - 05/11/2021 0819 EDT documented in this encounter Plan of Treatment Not on file documented as of this encounter Visit Diagnoses Not on filedocumented in this encounter Care Teams Donor Technician Relationship Specialty Start Date End Date Shirin Beltrán MD [address] [place] [phone] PCP - General 03/07/19 documented as of this encounter
--- OUTSIDE RECORDS SUMMARY | 2024-04-10 08:39 | XMS_ITS | Encounter Summary ---
Author Organization [facility] Address [address] [place] [address] Care Team Providers Care Machine Shop Worker Name Role Phone Shirin Beltrán MD Primary Care Provider [phone] Reason for Visit * Reason Onset Date Comments Other 07/14/2019 Complete Pre-op PE paperwork at 08/19 appointment? Encounter Details Date Type Department Care Team (Late st Contact Info) Description 07/14/2019 Telephone [facility] Rheumatology [address] [place] [address] Haylie Hernandez RN Other (Complete Pre-op PE paperwork at 08/19 appointment?) Social History Tobacco Use Types Packs/Day Years Used Date Smoking Tobacco: Never Assessed Sex and Gender Information Value Date Recorded Sex Assigned at Not on file Gender Identity Not on file Sexual Orientation Not on file documented as of this encounter Miscellaneous Notes * Telephone Encounter - Haylie Hernandez RN - 07/14/2019 1614 EST Tylor say he will check the pre-op PE paperwork and let us know if he needs an ECG or an EKG. * Telephone Encounter - Haylie Hernandez RN - 07/14/2019 1533 EST Tylor has his rotator cuff surgery scheduled for 08/25/19. He needs to have pre-op paperwork completedand is asking if you will do that for him at his 08/19/19 appointment. He doesn't have an appointment with Dr. Beltrán until September but she has ordered a lipid profile which, if you agree to completethe paperwork, he will have that sent here. documented in this encounter Plan of Treatment Not on file documented as of this encounter Visit Diagnoses Not on filedocumented in this encounter Care Teams Machine Shop Worker Relationship Specialty Start Date End Date Shirin Beltrán MD [address] [place] [phone] PCP - General 03/07/19 documented as of this encounter
--- OUTSIDE RECORDS SUMMARY | 2024-04-10 08:39 | XMS_ITS | Encounter Summary ---
Author Organization Health system Address [address] [place] [address] Care Team Providers Care Brushing Operator Name Role Phone Shirin Beltrán MD Primary Care Provider [phone] Encounter Details Date Type Department Care Team (Late st Contact Info) Description 05/28/2019 Results Only Imaging [facility] Radiology Results [address] [place] [address] Flip Garcia MD [facility] Rheumatology [address] [place] [address] [place] [phone] Social History Tobacco Use Types Packs/Day Years Used Date Smoking Tobacco: Never Assessed Sex and Gender Information Value Date Recorded Sex Assigned at Not on file Gender Identity Not on file Sexual Orientation Not on file documented as of this encounter Plan of Treatment Not on file documented as of this encounter Procedures Procedure Name Priority Date/Time Associated Diagnosis Comments XR SHOULDER RIGHT 2 OR MORE VIEWS 05/28/2019 13:03 EDT documented in this encounter Results * XR SHOULDER RIGHT 2 OR MORE VIEWS (05/28/2019 13:03 EDT) Anatomical Region Laterality Modality Right Other 05/28/2019 13:0 0 EDT Narrative 05/28/2019 13:03 EDT ? EXAM: RADIOLOGY/SHOULDER RT 2+VIEWS ? EX. D/ ([id number]) ? CLINICAL INFORMATION: ? M25.511, PAIN IN RIGHT SHOULDER ? INDICATION: M25.511, PAIN IN RIGHT SHOULDER M25.511 ? TECHNIQUE: 3 views right shoulder. ? COMPARISON: None. ? FINDINGS:Hypertrophic changes seen at the AC joint. The distal ? acromion appears tilted upward. There is a minimal glenohumeral ? marginal osteophyte. The right shoulder is well aligned. The humeral ? head is seated in the glenoid fossa. No acute fractures seen. ? IMPRESSION: ? 1. Hypertrophic AC joint arthropathy. The distal acromion appears ? upper tilting, possibly developmental. Please correlate with pain. ? 2. Early glenohumeral osteoarthrosis. ? REPORT SIGNED IN OTHER VENDOR SYSTEM 05/28/2019 ?Reported By: Rony Fletcher MD ? CC: ? Transcribed Date/Time: 05/28/2019 (3028) ? Art Editor: ? Printed Date/Time: 05/28/2019 (8016) ? PAGE 1 ? Signed Report ? Procedure Note Rony Fletcher MD - 06/28/2019 EXAM: RADIOLOGY/SHOULDER RT 2+VIEWS EX. D/ ([id number]) CLINICAL INFORMATION: M25.511, PAIN IN RIGHT SHOULDER INDICATION: M25.511, PAIN IN RIGHT SHOULDER M25.511 TECHNIQUE: 3 views right shoulder. COMPARISON: None. FINDINGS:Hypertrophic changes seen at the AC joint. The distal acromion appears tilted upward. There is a minimal glenohumeral marginal osteophyte. The right shoulder is well aligned. Thehumeral head is seated in the glenoid fossa. No acute fractures seen. IMPRESSION: 1. Hypertrophic AC joint arthropathy. The distal acromion appears upper tilting, possibly developmental. Please correlate with pain. 2. Early glenohumeral osteoarthrosis. REPORT SIGNED IN OTHER VENDOR SYSTEM 05/28/2019 Reported By: Rony Fletcher MD CC: Transcribed Date/Time: 05/28/2019 (6752) Art Editor: SCJenifer Printed Date/Time: 05/28/2019 (0036) PAGE 1 Signed Report Flip Garcia MD IMG DIAGNOSTIC IMAGI NG ORDERABLES documented in this encounter Visit Diagnoses Not on filedocumented in this encounter Care Teams Brushing Operator Relationship Specialty Start Date End Date Shirin Beltrán MD [address] [place] [address] [phone] PCP - General 03/07/19 documented as of this encounter
--- OUTSIDE RECORDS SUMMARY | 2024-04-10 08:39 | XMS_ITS | Encounter Summary ---
Author Organization [facility] Address [address] [place] [address] Care Team Providers Care Rides Supervisor Name Role Phone Shirin Beltrán MD Primary Care Provider [phone] Reason for Visit * Reason Comments Other Encounter Details Date Type Department Care Team (Late st Contact Info) Description 01/31/2021 Refill [facility] Rheumatology [address] [place] [address] Flip Garcia MD [facility] Rheumatology [address] [place] [address] [place] [phone] Other Social History Tobacco Use Types Packs/Day [...] this encounter Visit Diagnoses Diagnosis Systemic sclerosis ([facility])- Primary Systemic sclerosis documented in this encounter Care Teams Rides Supervisor Relationship Specialty Start Date End Date Shirin Beltrán MD [address] [place] [phone] PCP - General 03/07/19 documented as of this encounter
--- OUTSIDE RECORDS SUMMARY | 2024-04-10 08:39 | XMS_ITS | Encounter Summary ---
Author Organization [facility] Address [address] [place] [address] Care Team Providers Care Associate Professor Plant Pathology Name Role Phone Shirin Beltrán MD Primary Care Provider [phone] Reason for Visit * Reason Comments Other Encounter Details Date Type Department Care Team (Late st Contact Info) Description 06/06/2021 Refill [facility] Rheumatology [address] [place] [address] Flip Garica MD [facility] Rheumatology [address] [place] [address] [place] [phone] Other Social History Tobacco Use Types Packs/Day [...] on filedocumented in this encounter Care Teams Associate Professor Plant Pathology Relationship Specialty Start Date End Date Shirin Beltrán MD [address] [place] [phone] PCP - General 03/07/19 documented as of this encounter
--- OUTSIDE RECORDS SUMMARY | 2024-04-10 08:39 | XMS_ITS | Encounter Summary ---
Author Organization [facility] Address [address] [place] [address] Care Team Providers Care Waste Disposal Plant Operator Name Role Phone Shirin Beltrán MD Primary Care Provider [phone] Reason for Visit * Reason Onset Date Comments Medications Refill 07/11/2019 Encounter Details Date Type Department Care Team (Late st Contact Info) Description 07/11/2019 Telephone [facility] Rheumatology [address] [place] [address] Haylie Hernandez RN Medications Refill Social History Tobacco Use Types Packs/Day Years Used Date Smoking Tobacco: Never Assessed Sex and Gender Information Value Date Recorded Sex Assigned at Not on file Gender Identity Not on file Sexual Orientation Not on file documented as of this encounter Ordered Prescriptions Prescription Sig Dispensed Refills Start Date End Da te traZODone (DESYREL) 50 mg tablet Take 1 Tab by mouth at bedtime. 15 Tab 1 07/11/2019 09/15/2019 documented in this encounter Miscellaneous Notes * Telephone Encounter - Haylie Hernandez RN - 07/11/2019 2453 EST Trazodone Rx sent per Dr. Garcia's instructions. * Telephone Encounter - Haylie Hernandez RN - 07/11/2019 8509 EST ----- Message from Flip Garcia MD sent at 07/11/2019 11:36 EST ----- Regarding: unable to eprescribe Unable to send in eprescription. Please send in the following: Trazodone 50 mg Sig 1 tab po QHS for sleep Dispense 15 Refill 1 documented in this encounter Plan of Treatment Not on file documented as of this encounter Visit Diagnoses Not on filedocumented in this encounter Care Teams Waste Disposal Plant Operator Relationship Specialty Start Date End Date Shirin Beltrán MD [address] [place] [phone] PCP - General 03/07/19 documented as of this encounter
--- OUTSIDE RECORDS SUMMARY | 2024-04-10 08:39 | XMS_ITS | Encounter Summary ---
Author Organization [facility] Address [address] [place] [address] Care Team Providers Care Equipment Tester Name Role Phone Shirin Beltrán MD Primary Care Provider [phone] Reason for Visit * Reason Comments Other Encounter Details Date Type Department Care Team (Late st Contact Info) Description 03/12/2021 Refill [facility] Rheumatology [address] [place] [address] Flip Garcia MD [facility] Rheumatology [address] [place] [address] [place] [phone] Other Social History Tobacco Use Types Packs/Day [...] on filedocumented in this encounter Care Teams Equipment Tester Relationship Specialty Start Date End Date Shirin Beltrán MD [address] [place] [address] [phone] PCP - General 03/07/19 documented as of this encounter
--- OUTSIDE RECORDS SUMMARY | 2024-04-10 08:39 | XMS_ITS | Encounter Summary ---
Author Organization [facility] Address [address] [place] [address] Care Team Providers Care Care Information Associate Name Role Phone Tylor Brandon MD Primary Care Provider [phone] Encounter Details Date Type Department Care Team (Late st Contact Info) Description 02/28/2019 Results Only [facility] [phone] Preston Harris MD [address] [place], [place] [phone] Social History Tobacco Use Types Packs/Day Years Used Date Smoking Tobacco: Never Assessed Sex and Gender Information Value Date Recorded Sex Assigned at Not on file Gender Identity Not on file Sexual Orientation Not on file documented as of this encounter Plan of Treatment Not on file documented as of this encounter Procedures Procedure Name Priority Date/Time Associated Diagnosis Comments SURGICAL PATHOLOGY Routine 02/28/2019 15 :40 EDT documented in this encounter Results * SURGICAL PATHOLOGY (02/28/2019 15:40 EDT) Pathology Report: SURGICAL PATHOLOGY REPORT Reports generated via electronic interface contain original data; however they are lacking the format of the original report. Caution should be taken when reading/interpret ing unformatted reports. Name: ? ABIDA LOWERY ? Accession #: ? [id number] ? : ? 1960 (Age: 59) ??M ? Collect Date: ? 02/28/2019 ? Location: ? [facility] ? Receive Date: ? 02/28/2019 ? Provider: PRESTON HARRIS MD Copy to: LAZARO DRAPER MD ? Final Pathologic Diagnosis: A. COLON, TRANSVERSE, POLYPS, BIOPSY: - ??Fragments of tubular adenomas. B. RECTUM, POLYP, BIOPSY: - ??Fragment of hyperplastic polyp with prominent lymphoid aggregate. Document reviewed and electronically signed by: DANIEL CERNA MD Report ??Date: 03/04/2019 11:20 By the signature above, the attending physician certifies that he/she has personally conducted a gross and/or microscopic examination of the described specimens and rendered or confirmed the above diagnosis. Specimen(s) Received: A. ??Transverse colon polyps x2 B. ??Rectal polyp Clinical History: Personal hx of tubular adenoma and hyperplastic polyps; colon cancer screening Gross Description: A. ?Received in formalin labelled with proper patient identification (initials S, B) and transverse colon polyps x2 are three mayo irregular tissues ranging from 0.1 cm in greatest dimension to 0.2 x 0.2 x 0.1 cm. Entirely submitted in A1. B. ?Received in formalin labelled with proper patient identification (initials S, B) and rectal polyp is a mayo-brown nodular tissue, 0.2 x 0.2 x 0.2 cm. Entirely submitted in B1. KEILA Honeycutt (ASCP) 02/28/2019 4:12 PM End of Report [facility] 02/28/2019 15:4 0 EDT 02/28/2019 15:40 EDT Preston Harris MD PATHOLOGY ORDERABLES [facility] [address] [place] [address] documented in this encounter Visit Diagnoses Not on filedocumented in this encounter Care Teams Care Information Associate Relationship Specialty Start Date End Date Tylor Brandon MD [address] [place] [phone] PCP - General 04/25/12 03/06/19 documented as of this encounter
--- OUTSIDE RECORDS SUMMARY | 2024-04-10 08:39 | XMS_ITS | Encounter Summary ---
Author Organization [facility] Address [address] [place] [address] Care Team Providers Care Batter Scaler Name Role Phone Tylor Brandon MD Primary Care Provider [phone] Encounter Details Date Type Department Care Team (Latest Contact Info) Description 02/27/2019 9:38 EDT - 02/27/2019 23:59 EDT Hospital Encounter [facility] [address] [place] [address] Unknown, Provider, Discharge Disposition: Home or Self Care Social History Tobacco Use Types Packs/Day Years Used Date Smoking Tobacco: Never Assessed Sex and Gender Information Value Date Recorded Sex Assigned at Not on file Gender Identity Not on file Sexual Orientation Not on file documented as of this encounter Discharge Disposition Disposition Code Departure Means Destination Home or Self Nursing Home documented in this encounter Plan of Treatment Not on file documented as of this encounter Visit Diagnoses Not on filedocumented in this encounter Care Teams Batter Scaler Relationship Specialty Start Date End Date Tylor Brandon MD [address] [place] [address] PCP - General 04/25/12 03/06/19 documented as of this encounter
--- OUTSIDE RECORDS SUMMARY | 2024-04-10 08:39 | XMS_ITS | Encounter Summary ---
Author Organization [facility] Address [address] [place] [address] Care Team Providers Care Culinary Chef Name Role Phone Shirin Beltrán MD Primary Care Provider [phone] Reason for Visit * Reason Onset Date Comments Medications Refill 09/15/2019 Encounter Details Date Type Department Care Team (Late st Contact Info) Description 09/15/2019 Telephone [facility] Rheumatology [address] [place] [address] Flip Garcia MD [facility] Rheumatology [address] [place] [address] [place] [phone] Medications Refill Social History Tobacco Use Types [...] encounter Miscellaneous Notes * Telephone Encounter - Catalina Hodge - 09/15/2019 0909 EST LVM patient needs a refill on TRAZODONE HCL to [facility] in [facility]. Patient is out of thismedication. documented in this encounter Plan of Treatment Not on file documented as of this encounter Visit Diagnoses Not on filedocumented in this encounter Care Teams Culinary Chef Relationship Specialty Start Date End Date Shirin Beltrán MD [address] [place] [phone] PCP - General 03/07/19 documented as of this encounter
--- OUTSIDE RECORDS SUMMARY | 2024-04-10 08:39 | XMS_ITS | Encounter Summary ---
Author Organization [facility] Address [address] [place] [address] Care Team Providers Care Medical Imaging Technician Name Role Phone Shirin Draper MD Primary Care Provider [phone] Reason for Visit * Reason Comments Follow-up Patient having rotat or cuff surgery done on right shoulder on Sunday08/25/2019. Patient currently holding ibuprofen and Naproxen for surgery. Encounter Details Date Type Department Care Team (Late st Contact Info) Description 08/19/2019 14:00 EST Office Visit [facility] Rheumatology [address] [place] [address] Flip Garcia MD [facility] Rheumatology [address] [place] [address] [place] [address] Systemic sclerosis (HCC-CMS) (Primary Dx); Chronic right shoulder pain Social History Tobacco Use Types Packs/Day Years Used Date Smoking Tobacco: Never Smokeless Tobacco: Never Sex and Gender Information Value Date Recorded Sex Assigned at Not on file Gender Identity Not on file Sexual Orientation Not on file documented as of this encounter Last Filed [...] Body Mass Index 21.93 08/19/2019 1401 EST documented in this encounter Functional Status Functional Status Response [...] No 08/19/2019 documented as of this encounter Progress Notes * Flip Garcia MD - 08/19/2019 1400 EST [facility] Rheumatology Chief Complaint Patient presents with ??? Follow-up Patient having rotator cuff surgery done on right shoulder on Sunday08/25/2019. Patient currently holding ibuprofen and Naproxen for surgery. HPI: ? 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 ?02-18-19 Interval events: ?No interval health events. [...] events: Has surgery scheduled on Sunday at [facility] with Dr. Glover to reattach [...] to stop this 8 days before surgery. Current Outpatient Medications: traZODone (DESYREL) 50 mg tablet Allergies include: Bee pollen and Bee venom protein (honey bee) Review of Systems: Energy is good. Weight is stable. Sleep is good. Using trazodone with good effect. HEENT: No mouth sores. Notes facial rash. No sicca symptoms. 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 No rash. No ulcerations. Cardiovascular: No chest pain or palpitations. Pulmonary: No dyspnea cough or wheezing. GI: No upper or lower GI symptoms. Musculoskeletal: Still with swelling in the MCPs especially in the right hand. Right shoulder and bilateral Achilles tendon pain. Has not started methotrexate. Neurologic: No focal motor or sensory neurologic symptoms. Vascular: Raynaud's as previously described. Physical Examination: BP 120/62 Pulse 67 Ht 170.2 cm (67) Wt 63.5 kg (140 lb) BMI 21.93 kg/m? General appearance and movement: alert, nontoxic, no distress, healthy appearing. Gets out of chair easily without stiffness or pain. ? HEENT: anicteric sclerae, conjunctivae clear; no facial rash ? Heart: regular rate and rhythm, no murmur, no extra sounds, no rubs; no accentuated P2 ? Lungs: clear to auscultation, no rales, rubs, or wheezes ? Skin: no rash, early sclerodactyly, no telangiectasias, no subcutaneous nodules; hyperpigmented and thickened areas of the elbows; no evidence of psoriasis. Acrocyanosis present ? Vascular: 2+ pulses in radial arteries, posterior tibial, and dorsalis pedis arteries ? Neurologic: ? Normal mental status, speech fluent, comprehension and language intact, alert and oriented ? Normal muscle bulk ? No abnormal movements, tremors, or fasciculations ? Musculoskeletal: ? Posture: erect posture ? Hands: no nail pitting or onycholysis, synovial swelling yet no tenderness in MCPs of right hand, hands are diffusely puffy; improved circulation; tapered fingers; neurovascular intact, no thenar atrophy; no dactylitis; no triggering of flexor tendons; no tendon friction rubs; good claw and fist ? Wrists: no synovial swelling or tenderness, normal flexion and extension ? Elbows: no effusions or nodules, full flexion/extension, pronation and supination ? Shoulders: Left shoulder with full and painless range of motion passively. Right shoulder not examined ? Ankles: No synovitis; no edema; tenderness to palpation at both insertional sites ofthe Achilles tendons on the calcaneus bones ? Labs: ? 11/03/2015: CRP 1.4. Uric acid 6.5. Lhuz-xtwghq-pqrvplqp DNA negative. INSPECTOR ALIGNING antibodiesnegative. Anti-Chakraborty antibodies negative. Anti-SCL 70 antibody high at more than 8.0. Anti-SSA negative. Anti-SSB negative. Anti- cromolyn antibodies negative. Anti-Eugenia 1 antibody negative. Anti-myeloperoxidase antibody negative. Anti-proteinase 3 antibody negative. C ANCA negative. P. ANCA negative.C3 and C4 normal. Anticardiolipin antibodies negative. Anticentromere antibody negative. Lupus anticoagulant negative. LINDA +1: 320. I do not know the immunofluorescent pattern. ? Diagnostic imaging:. Labs: Results Only on 02/28/2019 Component Date Value ??? Pathology Report: 02/28/2019 Value:SURGICAL PATHOLOGY REPORT Reports generated via electronic interface contain original data; however they are lacking the format of the original report. Caution should be taken when reading/interpreting unformatted reports. Name: ABIDA LOWERY : 1960 (Age: 59) M Collect Date: 02/28/2019 Location: [facility] Receive Date: 02/28/2019 Provider: PRESTON [...] 0.2 cm. Entirely submitted in B1. KEILA Honeyuctt ([facility]) 02/28/2019 4:12 PM End of Report Diagnosis / Assessment: 1. 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 He does not believe that he has had a therapeutic effect with amlodipine 7.5 mg. I will be switching him to nifedipine 30 mg daily. He has been tolerating the calcium channel paris from a blood pressure standpoint withhome blood pressures in the 120 over 70s. No prolonged ischemic periods or digital ulcerations. HRCT and TTE completed and reviewed. I had hoped to start him on a DMARD after the course of prednisone. We previously spent some time during the appointment discussing potential side effects and potential therapeutic benefits of both hydroxychloroquine and methotrexate. He remains reluctant to try either 1 of these medications. Since he has not started methotrexate I have advised holding this and re-considering sometime after surgical healing. He would like to reconsider this after evaluation of his right shoulder. It is quite possible he has an overlap syndrome with rheumatoid arthritis and systemic sclerosis. 2. Chronic right shoulder pain injury to right shoulder including supraspinatus tear and biceps tendon rupture. Surgical procedure scheduled for Sunday at [facility]. Recommendations/Evaluation: Total rfuv-yk-suwy time: 25 minutes, >50% spent counseling on above issues. Flip Garcia MD documented in this encounter Plan of Treatment Not on file documented as of this encounter Visit Diagnoses Diagnosis Systemic sclerosis ([facility])- Primary Systemic sclerosis Chronic right shoulder pain Pain in joint, shoulder region documented in this encounter Historical Medications * This list may reflect changes made after this encounter. Medication Sig Dispensed Refills Start Date End Date naproxen (NAPROSYN) 500 mg tablet Take 500 mg by mouth 2 times daily as needed. ibuprofen (MOTRIN) 800 mg tablet Take 800 mg by mouth every 8 hours as needed for Pain. added in this encounter Care Teams Medical Imaging Technician Relationship Specialty Start Date End Date Shirin Draper MD [address] [place] [phone] PCP - General 03/07/19 documented as of this encounter
--- OUTSIDE RECORDS SUMMARY | 2024-04-10 08:39 | XMS_ITS | Encounter Summary ---
Author Organization [facility] Address [address] [place] [address] Care Team Providers Care Personalized Living Manager Nurse Name Role Phone Shirin Beltrán MD Primary Care Provider [phone] Encounter Details Date Type Department Care Team (Latest Contact Info) Description 11/20/2019 Travel Social History Tobacco Use Types Packs/Day Years [...] on filedocumented in this encounter Care Teams Personalized Living Manager Nurse Relationship Specialty Start Date End Date Shirin Beltrán MD [address] [place] [address] PCP - General 03/07/19 documented as of this encounter
--- OUTSIDE RECORDS SUMMARY | 2024-04-10 08:39 | XMS_ITS | Encounter Summary ---
Author Organization [facility] Address [address] [place] [address] Care Team Providers Care Electric Operator Name Role Phone Unknown, Provider Primary Care Provider Encounter Details Date Type Department Care Team (Late st Contact Info) Description 04/24/2012 Results Only [facility] [address] [place], [place] [address] Adrian Hunter MD [address] [place], [place] [address] Social History Tobacco Use Types Packs/Day Years Used Date Smoking Tobacco: Never Assessed Sex and Gender Information Value Date Recorded Sex Assigned at Not on file Gender Identity Not on file Sexual Orientation Not on file documented as of this encounter Plan of Treatment Not on file documented as of this encounter Procedures Procedure Name Priority Date/Time Associated Diagnosis Comments SURGICAL PATHOLOGY Routine 04/24/2012 0:00 EDT documented in this encounter Results * SURGICAL PATHOLOGY (04/24/2012 0:00 EDT) Pathology Report: SURGICAL PATHOLOGY REPORT Reports generated via electronic interface contain original data; however they are lacking the format of the original report. Caution should be taken when reading/interpreti ng unformatted reports. Name: ? ABIDA LOWERY ? Accession #: ? [id number] ? : ? 1960 (Age: 52) ??M ? Collect Date: ? 04/24/2012 ? Location: ? [facility] ? Receive Date: ? 04/24/2012 ? Provider: ADRIAN HUNTER MD Copy to: PAWEL HEATH MD ? Final Pathologic Diagnosis: A. ?Colon, cecum, polyps, biopsies: 1. ?Fragments of tubular adenoma(s). B. ?Colon, sigmoid, question of polyps, biopsies: 1. ?Colonic mucosa with hyperplastic surface change. Document reviewed and electronically signed by: BRITTNEE MONTALVO MD Report ??Date: 04/26/2012 17:55 By the signature above, the attending physician certifies that he/she has personally conducted a gross and/or microscopic examination of the described specimens and rendered or confirmed the above diagnosis. Specimen(s) Received: A. ?Cecal polyps x2 (#1) B. ? Sigmoid polyps x2 (#2) Clinical History: ? Colorectal screen Gross Description: ? Received in formalin labelled Abida Lowery and #1cecal polyp x2 are three biopsies which vary in size from 0.3 x 0.2 x 0.2 cm up to 0.5 x 0.4 x 0.3 cm. ??The two smaller specimens are submitted intact as (A1), while the largest is bisected and submitted entirely as (A2). Received in formalin labelled Abida Marsh and #2? sigmoid polyps x2 are two light mayo biopsies measuring 0.2 x 0.2 x 0.1 cm and 0.3 x 0.2 x 0.1 cm. The specimens are submitted intact as (B). ??(Karl Mario)/[facility] End of Report JAKE NUÑEZ 04/24/2012 04/24/2012 15: 58 EDT Adrian Hunter MD PATHOLOGY ORDERABLES Performing Organization Address City/State/[facility] Co de Phone Number [facility] [address] [place] [address] documented in this encounter Visit Diagnoses Not on filedocumented in this encounter Care Teams Electric Operator Relationship Specialty Start Date End Date Unknown, Provider, PCP - General 04/24/12 04/24/12 documented as of this encounter
--- OUTSIDE RECORDS SUMMARY | 2024-04-10 08:39 | XMS_ITS | Encounter Summary ---
Author Organization [facility] Address [address] [place] [address] Care Team Providers Care Bias Binding Cutter Name Role Phone Shirin Beltrán MD Primary Care Provider [phone] Encounter Details Date Type Department Care Team (Late st Contact Info) Description 09/15/2019 Orders Only [facility] Rheumatology [address] [place], [place] [phone] Haylie Hernandez RN Social History Tobacco Use Types Packs/Day Years [...] needed for Sleep. 30 Tab 3 09/15/2019 documented in this encounter Progress Notes * Haylie Hernandez RN - 09/15/2019 0932 EST Last visit note reviewed and follow up noted. Refill sent as noted. documented in this encounter Plan of Treatment Not on file documented as of this encounter Visit Diagnoses Not on filedocumented in this encounter Discontinued Medications Medication Sig Discontinue Reason Start Date End Da te traZODone (DESYREL) 50 mg tablet Take 1 Tab by mouth at bedtime. Reorder 07/11/2019 09/15/2019 documented as of this encounter Care Teams Bias Binding Cutter Relationship Specialty Start Date End Date Shirin Beltrán MD [address] [place] [phone] PCP - General 03/07/19 documented as of this encounter
[2024-04-10 08:57] LABS: Hemoglobin A1C 5.7 % (<5.7)
[2024-04-10 09:06] LABS: ALT 40 U/L (16-63); AST 30 U/L (15-37); Albumin 4.4 g/dL (3.4-5.0); Alkaline Phosphatase 75 U/L (46-116); BUN 20 mg/dL (7-18); Bilirubin, Total 0.75 mg/dL (0.2-1.0); CREATININE 1.2 mg/dL (0.70-1.30); Calculated LDL 189 mg/dL (<100); Chloride 105 mmol/L (98-107); Cholesterol 300 mg/dL (<200); Estimated GFR 67.53 (mL/min/1.73m2); Glucose 105 mg/dL (74-106); HDL Cholesterol 96 mg/dL (40-60); Potassium 4.9 mmol/L (3.5-5.1); Sodium 140 mmol/L (136-145); Total Protein 8.6 g/dL (6.4-8.2); Triglyceride 76 mg/dL (<150)
== END 2024-04-10 08:36 | disposition home or self-care (01) ==
LOC: LBO 08:37
PROVIDERS: PCP Family Medicine; Visit Provider Family Medicine
DX: R73.03 Prediabetes (principal); E78.5 Hyperlipidemia, unspecified
CPT/HCPCS: 36415; 80053; 80061; 83036

== ENCOUNTER 2024-12-08 14:26 | Outpatient (REF) | payer OTHER, SELFPAY ==
[2024-12-08 15:42] LABS: HCT 46.8 % (40.0-50.0); HGB 15.1 g/dL (13.5-17.5); MCHC 32.3 % (32.0-36.0); MCV 93 fL (80-95); MPV 10.4 fL (8.0-11.0); Platelet Count 261 10^3/uL (130-400); RBC 5.03 10^6/uL (4.36-5.78); RDW 13.3 % (11.8-14.1); RDW-SD 45.3 fL; WBC 6.15 10^3/uL (4.4-10.8)
[2024-12-08 16:03] LABS: ALT 48 U/L (16-63); AST 27 U/L (15-37); Albumin 4.1 g/dL (3.4-5.0); Alkaline Phosphatase 70 U/L (46-116); Anion Gap 3.7 mmol/L (3-11); BUN 19 mg/dL (7-18); Bilirubin, Total 0.5 mg/dL (0.2-1.0); CO2 31.3 mmol/L (21.0-32.0); Calcium 9.6 mg/dL (8.5-10.1); Calculated LDL 97 mg/dL (<100); Chloride 107 mmol/L (98-107); Cholesterol 176 mg/dL (<200); Estimated GFR 84.05 (mL/min/1.73m2); Glucose 92 mg/dL (74-106); HDL Cholesterol 68 mg/dL (>or=40); Potassium 4.8 mmol/L (3.5-5.1); Sodium 142 mmol/L (136-145); Total Protein 7.7 g/dL (6.4-8.2); Triglyceride 57 mg/dL (<150)
[2024-12-08 16:04] LABS: Hemoglobin A1C 5.7 % (<5.7)
== END 2024-12-08 14:27 | disposition home or self-care (01) ==
LOC: NCHCN 14:26
PROVIDERS: PCP Family Medicine; Visit Provider Family Medicine
DX: R73.03 Prediabetes (principal); E78.5 Hyperlipidemia, unspecified
CPT/HCPCS: 80053; 80061; 85027; 83036

== ENCOUNTER 2025-07-13 10:39 | Outpatient (REF) | payer MEDICARE, SELFPAY ==
[2025-07-13 16:17] LABS: Abs Immature Grans 0.01 10^3/uL (0.0-0.06); HCT 45.0 % (40.0-50.0); HGB 14.8 g/dL (13.5-17.5); Immature Grans % 0.2 %; MCH 30.5 pg (27.0-33.0); MCHC 32.9 % (32.0-36.0); MCV 93 fL (80-95); MPV 10.8 fL (8.0-11.0); Platelet Count 245 10^3/uL (130-400); RBC 4.86 10^6/uL (4.36-5.78); RDW 13.0 % (11.8-14.1); RDW-SD 44.1 fL; WBC 5.40 10^3/uL (4.4-10.8)
[2025-07-13 16:40] LABS: ALT 65 U/L (10-49); AST 44 U/L (<34); Albumin 4.4 g/dL (3.4-5.0); Alkaline Phosphatase 60 U/L (46-116); Anion Gap 8.4 mmol/L (3-11); BUN 18 mg/dL (9-23); Bilirubin, Total 0.60 mg/dL (0.2-1.2); CO2 30.6 mmol/L (20.0-31.0); Calcium 9.8 mg/dL (8.3-10.6); Chloride 102 mmol/L (98-107); Glucose 92 mg/dL (74-106); Potassium 4.7 mmol/L (3.5-5.1); Sodium 141 mmol/L (136-145); Total Protein 7.2 g/dL (5.7-8.2)
== END 2025-07-13 10:40 | disposition home or self-care (01) ==
LOC: NCHCN 10:39
PROVIDERS: PCP Family Medicine; Visit Provider Family Medicine
DX: M34.9 Systemic sclerosis, unspecified (principal)
CPT/HCPCS: 80053; 85025

== ENCOUNTER 2025-08-18 10:28 | Outpatient (REF) | payer MEDICARE, SELFPAY ==
[2025-08-18 16:17] LABS: ALT 55 U/L (10-49); AST 42 U/L (<34); Albumin 4.8 g/dL (3.2-5.0); Alkaline Phosphatase 79 U/L (46-116); Bilirubin, Direct 0.3 mg/dL (<=0.3); Bilirubin, Total 1.1 mg/dL (0.2-1.2); Total Protein 8.1 g/dL (5.7-8.2)
== END 2025-08-18 10:29 | disposition home or self-care (01) ==
LOC: NCHCN 10:28
PROVIDERS: PCP Family Medicine; Visit Provider Family Medicine
DX: R79.89 Other specified abnormal findings of blood chemistry (principal)
CPT/HCPCS: 80076